=== PATIENT | male | born 1960 | race Caucasian/White ===

== ENCOUNTER 2023-10-17 16:53 | Emergency (ER) | payer OTHER, SELFPAY ==
[2023-10-17 17:00] VITALS: BP 156/110
[2023-10-17 17:06] LABS: Glucose - Point of Care 84 mg/dl (70-99)
[2023-10-17 17:20] LABS: % Immature Granulocytes 0.3 % (0-0.5); % Lymphocytes 36.9 % (20.5-51.1); % Monocytes 6.8 % (1.7-9.3); Absolute Basophils 0.1 10^3/uL (0-0.2); Absolute Eosinophils 0.1 10^3/uL (0-0.7); Absolute Lymphocytes 2.3 10^3/uL (1.2-3.4); Absolute Monocytes 0.4 10^3/uL (0.1-0.6); Absolute Neutrophils 3.4 10^3/uL (1.4-6.5); Hematocrit 40.4 % (39.0-52.0); Hemoglobin 14.3 g/dL (13.0-18.0); Mean Corp Hgb Conc. 35.4 g/dL (33.0-37.0); Mean Corpuscular Hgb 31.8 pg (27.0-31.0); Mean Corpuscular Volume 89.8 fL (80.0-94.0); Mean Platelet Volume 9.1 fL (7.4-10.4); Nucleated Red Blood Cells % 0 % (-); Platelet Count 232 10^3/uL (130-400); Red Cell Dist. Width 13.8 % (11.5-14.5); White Blood Cell Count 6.3 10^3/uL (4.8-10.8)
--- NOTE | 2023-10-17 17:21 | ED.GENMED ---
History of Present Illness
<EULALIA Amaya - Last Filed: 10/17/23 18:51>
General
Chief Complaint: Cough
Source: patient
Exam Limitations: other (intoxicated appearing)
Time Seen by Provider: 10/17/23 17:01
Nursing documentation reviewed up to this point in time: agreed with
Travel History
Have you had any contact with someone who has COVID-19?: No
Do you have any symptoms of coronavirus? Fever > 100 degrees, chills, cough, shortness of breath, sore throat, loss of taste or smell, muscle aches, or headache?: No
History of Present Illness
History of Present Illness:
62 y/o M presents to ED complaining of generalized weakness x 5 days. Patient called EMS today because he felt so weak he could not stand up. Patient does have history of ETOH abuse and reports he was drinking a lot tonight. He cannot recall how
much he drank. Patient appears intoxicated in exam room. Patient reports he had 2 teeth pulled about 1 week ago and has been feeling off since. He reports feeling warm to touch and having consistent dental pain. Patient was prescribed oxycodone and
Tylenol 650mg but reports he is still having pain. He is requesting pain medications. Patient has been out of work all week. Requesting note for work. Patient reports his BP has been elevated and BS has been low. BS was 84. Patient reports he has
been eating malay food all week. Patient also reports sore throat x 5 days. He reports a wet cough but states this has been occurring for past year because of his smoking. Denies headache, blurry vision, numbness/tingling, congestion, chest pain,
palpitations, NVD or abdominal pain.
If applicable-neuro sx onset
Onset of symptoms known: No
Time pt last seen normal is known: No
Past History
<EULALIA Amaya - Last Filed: 10/17/23 18:51>
Past History
ED Past Medical History: HTN, IDDM, Psychiatric and Other (Pancreatitis, alcoholism)
ED Past Surgical History: None
Social History
Tobacco: Smoker
Alcohol: Chronic alcoholic
Drug: None
Personal: Partner
Living: with family
Review of Systems
<EULALIA Amaya - Last Filed: 10/17/23 18:51>
Review of Systems
Allergies reviewed?: Yes
All Other Systems: ROS reviewed and negative except as documented in HPI and ROS
Constitutional: Reports no symptoms
EENT: Reports sore throat
Respiratory: Reports cough
Cardiac: Reports no symptoms
ABD/GI: Reports no symptoms
: Reports no symptoms
Musculoskeletal: Reports no symptoms
Skin: Reports no symptoms
Neurological: Reports weakness
Endocrine: Reports no symptoms
Hematologic/Lymphatic: Reports no symptoms
Psychiatric: Reports no symptoms
Phy Exam
<EULALIA Amaya - Last Filed: 10/17/23 18:51>
General Physical Exam
General Presentation: well appearing
General age: appears stated age
General Skin: warm and dry
General Habitus: normal
General Mental: alert
General Hydration: appears well hydrated
ENT Exam
ENT Exam: EOMI, TM's normal, neck supple, pharyngeal erythema and other (no signs of infection at site of tooth removal)
Eye Exam
Eye Exam: PERRL, EOMI and conjunctiva normal
Cardiovascular Exam
Cardiovascular Exam: regular rate/rhythm, no edema, no gallop, no murmur and normal peripheral pulses
Pulmonary Exam
Pulmonary Exam: no respiratory distress and other (slight wheeze in lower lobes )
Cough: productive cough
Breath Sounds: Wheeze: left lower and right lower
Gastrointestinal Exam
Gastrointestinal Exam: normal bowel sounds, non tender, soft and non distended
Neurological Exam
Neurological Exam: alert, oriented x3 and CN II-XII intact
Musculoskeletal Exam
Musculoskeletal Exam: full ROM and other (full strength of all extremities )
Skin Exam
Skin Exam: normal color, warm/dry and no rash
Psychiatric Exam
Psychiatric Exam: normal mood/affect
Course
<Chapis Rabago [facility] - Last Filed: 10/17/23 18:51>
Orders/Labs/Results
Orders:
Orders
10/17/23 17:10
Alcohol Urgent
COVID-19 Antigen Urgent
Source: Nasal Swab
Complete Blood Count/With Diff Urgent
Comprehensive Metabolic Panel Urgent
Lipase Urgent
Comment: ADD ON
Influenza A+B Rapid Molecular Urgent
TEJAL Source: Nasal Swab
Specimen Description:
10/17/23 17:53
Acetaminophen [Tylenol] 1,000 mg PO NOW STA
10/17/23 18:59
Nicotine [Nicoderm Transdermal] 21 mg TRANSDERM NOW STA
10/17/23 20:42
Ibuprofen [Motrin] 800 mg PO NOW STA
10/17/23 21:08
Insulin Glargine Lantus [Lantus] 10 units Subcutaneous Insulin Syringe [Syringe-Insulin] 0 unit SC ONCE
10/17/23 21:24
Insulin Glargine Lantus [Lantus] 30 units Subcutaneous Insulin Syringe [Syringe-Insulin] 0 unit SC NOW
10/17/23 22:55
Add On- LAB Urgent
Tests Added?: lipase
10/18/23 00:08
Lorazepam [Ativan] 1 mg PO NOW STA
10/18/23 01:23
Acetaminophen [Tylenol] 1,000 mg PO NOW STA
Abnormal Lab Results
10/17/23 10/17/23 10/17/23
17:10 19:57 21:06
RBC 4.50 L 10^6/uL
(4.70-6.10)
MCH 31.8 H pg
(27.0-31.0)
Chloride 108 H mmol/L
(98-107)
Creatinine 0.6 L mg/dL
(0.7-1.3)
POC Glucose 215 H mg/dl 316 H mg/dl
(70-99) (70-99)
10/17/23
22:28
RBC
MCH
Chloride
Creatinine
POC Glucose 252 H mg/dl
(70-99)
10/17/23 17:10
10/17/23 17:10
Vital Signs
Initial and Last Documented VS:
Initial Vital Signs
Temp Pulse Resp BP Pulse Ox
97.5 F 80 18 156/110 98
10/17/23 17:00 10/17/23 17:00 10/17/23 17:00 10/17/23 17:00 10/17/23 17:00
Last Documented Vital Signs
Temp Pulse Resp BP Pulse Ox
98.6 F 110 24 168/108 96
10/17/23 20:58 10/18/23 06:10 10/18/23 06:10 10/18/23 06:10 10/18/23 06:10
<Dean Perry, DO - Last Filed: 10/19/23 22:04>
Orders/Labs/Results
Orders:
Orders
10/17/23 17:10
Alcohol Urgent
COVID-19 Antigen Urgent
Source: Nasal Swab
Complete Blood Count/With Diff Urgent
Comprehensive Metabolic Panel Urgent
Lipase Urgent
Comment: ADD ON
Influenza A+B Rapid Molecular Urgent
TEJAL Source: Nasal Swab
Specimen Description:
10/17/23 17:53
Acetaminophen [Tylenol] 1,000 mg PO NOW STA
10/17/23 18:59
Nicotine [Nicoderm Transdermal] 21 mg TRANSDERM NOW STA
10/17/23 20:42
Ibuprofen [Motrin] 800 mg PO NOW STA
10/17/23 21:08
Insulin Glargine Lantus [Lantus] 10 units Subcutaneous Insulin Syringe [Syringe-Insulin] 0 unit SC ONCE
10/17/23 21:24
Insulin Glargine Lantus [Lantus] 30 units Subcutaneous Insulin Syringe [Syringe-Insulin] 0 unit SC NOW
10/17/23 22:55
Add On- LAB Urgent
Tests Added?: lipase
10/18/23 00:08
Lorazepam [Ativan] 1 mg PO NOW STA
10/18/23 01:23
Acetaminophen [Tylenol] 1,000 mg PO NOW STA
Abnormal Lab Results
10/17/23 10/17/23 10/17/23
17:10 19:57 21:06
RBC 4.50 L 10^6/uL
(4.70-6.10)
MCH 31.8 H pg
(27.0-31.0)
Chloride 108 H mmol/L
(98-107)
Creatinine 0.6 L mg/dL
(0.7-1.3)
POC Glucose 215 H mg/dl 316 H mg/dl
(70-99) (70-99)
10/17/23
22:28
RBC
MCH
Chloride
Creatinine
POC Glucose 252 H mg/dl
(70-99)
10/17/23 17:10
10/17/23 17:10
Vital Signs
Initial and Last Documented VS:
Initial Vital Signs
Temp Pulse Resp BP Pulse Ox
97.5 F 80 18 156/110 98
10/17/23 17:00 10/17/23 17:00 10/17/23 17:00 10/17/23 17:00 10/17/23 17:00
Last Documented Vital Signs
Temp Pulse Resp BP Pulse Ox
98.6 F 110 24 168/108 96
10/17/23 20:58 10/18/23 06:10 10/18/23 06:10 10/18/23 06:10 10/18/23 06:10
<EULALIA Amaya - Last Filed: 10/17/23 18:51>
MDM/Problems Addressed
Differential Diagnosis Includes:
ETOH intoxication
Dental Infection (no signs of infection on exam)
COPD (chronic cough)
Hypoglycemic
MDM/Problems Addressed:
Patient is 62 y/o M with history of ETOH abuse who reporst feeling unwell since his tooth removal. Patient reports he has been drinking a lot and has been feeling very weak. Patient weakness may be secondary to hypoglycemia or ETOH intoxication. No
concerns for stroke or CN concerns. Patient cough likely secondary to smoking history. No fever today.
Chronic conditions affecting care:
ETOH abuse
<Dean Perry DO - Last Filed: 10/19/23 22:04>
*Critical Care Note
Total Time (30-74mins, 75-104mins- exclusive of procedures): Not Applicable
<EULALIA Amaya - Last Filed: 10/17/23 18:51>
Update Note
Update Note:
1850: Patient verbally abusive toward nurse. States he is not feeling well and is not ready to go home. States he will fall and hit his head if he has to as he is not ready to go home. Laying in bed currently.
ED Attending Note
<EULALIA Amaya - Last Filed: 10/17/23 18:51>
-
Portions of this chart may have been created with voice recognition software.� Occasional wrong word or��sound alike� substitutions may have occurred due to the inherent limitations of voice recognition software.
<Dean Perry, DO - Last Filed: 10/19/23 22:04>
ED Attending Note
Patient seen and examined by attending physician: Yes
I performed the substantive portion of visit, reviewed & personally made and approve the management plan that is documented in note by myself or NAA.: Yes
ED Attending Note:
62-year-old male presents with generalized weakness that has been present for the last 3 to 5 days. Patient reports that he had 2 teeth removed. He states that he has been drinking alcohol daily. He does have a history of high blood pressure and
alcohol abuse. Patient is also diabetic and requires insulin. He reports that his blood sugar has been running low. Denies chest pain or shortness of breath. Denies fever, chills, nausea or vomiting. Patient was seen in conjunction with the PA
student. I have reviewed and agree with the history and treatment plan presented. On my independent physical exam, patient is awake, alert, and oriented x3, verbally abusive towards staff. Unwilling to cooperate by staying in his bed. Multiple
times he was asked to get back in his bed. Heart is regular rate rhythm. Lungs are clear to auscultation bilaterally. Abdomen is soft and nontender.
10/17/2023 1805 PM: IV was removed because patient keeps wandering around the halls.
10/17/2023 2041 PM: Patient states that he does not feel safe going home but he continues to walk around the department. I advised him to stay in the bed and he is being noncompliant with this. I am concerned for his safety. He is still
complaining of dental pain and wants narcotic pain medication. I explained to him it has been a week and I can offer him nonnarcotic alternatives. He was willing to try Motrin.
10/17/2023 2132 PM: Patient getting 30 of Lantus which is approximately 20% less than his normal dose of Toujeo.
Pt spoke with LORETO who stated that placement in an inpatient facility would be difficult, as patient has been to many facilities and did not comply with rules.
Discharge Plan
Departure
Patient Disposition: Home (Routine Discharge)
Date of Disposition: 10/17/23
Time of Disposition: 22:56
Patient with high blood pressure during this ER visit?: Yes
Condition: Fair
Discharge Problem:
Smoker, Type 2 diabetes mellitus without complications, Alcohol abuse
Instructions: Alcohol Use Disorder (DC), Drug and Alcohol Abuse Information
Prescriptions:
No Action
Toujeo SoloStar U-300 Insulin 300 UNIT/ML insulin pen
40 unit SC DAILY
Rx Instructions:
pt adjusts per bs
insulin aspart U-100 100 UNIT/ML insulin pen
0 unit SQ .SLIDING SCALE MEALS
tamsulosin 0.4 MG capsule
0.4 mg PO DAILYPRN PRN (Reason: urinary symptoms)
ibuprofen 400 MG tablet
400 mg PO TIDPRN PRN (Reason: mild pain)
atorvastatin
1 tab PO DAILY
Rx Instructions:
LAST FILLED 02/13/22 FOR LISINOPRIL 5 MG #30
lisinopril
1 tab PO DAILY
Rx Instructions:
LAST FILLED 02/13/22 FOR LISINOPRIL 5 MG #30
acetaminophen 325 mg Capsule
650 mg PO Q4H PRN (Reason: pain)
Patient Comments:
pt taking large quantities this week 05/29/2022
Referrals:
Jay Arthur MD [Non-Admitting Privileges] - Call in 1-3 days for appt
UNKNOWN - PT NOT,INTERVIEWE [Family Provider] -
Stand Alone Forms: Return to Work
Interventions
Interventions:
*Risk Screen - Suicide Last Done: 10/17/23 17:00
*General Assessment Last Done: 10/17/23 17:00
*Neglect/Abuse Screening Last Done: 10/17/23 17:00
ED- Fall Risk Assessment Last Done: 10/18/23 01:32
*ED COVID-19 Vaccine History Last Done: 10/18/23 01:32
*Nursing Disposition Last Done: 10/18/23 07:19
ED- Pulmonary Assessment Last Done: 10/17/23 17:25
Discharge Date and Time
Discharge Date/Time: 10/18/23 07:03
[2023-10-17 17:48] LABS: ALT (SGPT) 25 U/L (0-50); AST (SGOT) 49 U/L (17-59); Albumin 4.3 g/dl (3.5-5.0); Alkaline Phosphatase 95 U/L (38-126); Blood Urea Nitrogen 9 mg/dl (9-20); Calcium 8.9 mg/dl (8.4-10.2); Carbon Dioxide 24 mmol/L (22-30); Chloride 108 mmol/L (98-107); Glucose 83 mg/dl (70-99); Potassium 4.5 mmol/L (3.5-5.1); Sodium 142 mmol/L (135-145); Total Bilirubin 0.9 mg/dl (0.2-1.3); Total Protein 7.4 g/dl (6.3-8.2); eGFR > 60.00
[2023-10-17 17:53] LABS: COVID-19 Antigen Negative (Negative)
[2023-10-17] MEDS: TYLENOL 1000 MG PO (17:56)
[2023-10-17 18:29] LABS: Alcohol 338 mg/dl
[2023-10-17] MEDS: NICODERM TRANSDERMAL 21 MG TRANSDERM (19:03)
[2023-10-17 20:00] LABS: Glucose - Point of Care 215 mg/dl (70-99)
[2023-10-17] MEDS: MOTRIN 800 MG PO (20:45)
[2023-10-17 20:58] VITALS: BP 128/102
[2023-10-17 21:08] LABS: Glucose - Point of Care 316 mg/dl (70-99)
[2023-10-17] MEDS: LANTUS 0.299999999999999989 UNITS SC (21:45)
[2023-10-17 22:29] LABS: Glucose - Point of Care 252 mg/dl (70-99)
[2023-10-17 23:02] VITALS: BP 188/89
[2023-10-17 23:31] LABS: Lipase 29 U/L (23-300)
[2023-10-18 00:20] VITALS: BP 205/97
[2023-10-18 00:21] VITALS: BP 205/97
[2023-10-18] MEDS: ATIVAN 1 MG PO (00:21)
[2023-10-18 01:18] LABS: Glucose - Point of Care 93 mg/dl (70-99)
[2023-10-18] MEDS: TYLENOL 1000 MG PO (01:26)
[2023-10-18 06:07] VITALS: BP 165/108
[2023-10-18 06:10] VITALS: BP 168/108
== END 2023-10-18 07:03 | disposition home or self-care (01) ==
LOC: EMR 16:53
PROVIDERS: EMERGENCY PHYSICIAN Student in an Organized Health Care Education/Training Program
DX: R53.1 Weakness (principal); F10.229 Alcohol dependence with intoxication, unspecified; E11.9 Type 2 diabetes mellitus without complications; K08.89 Other specified disorders of teeth and supporting structures; F17.200 Nicotine dependence, unspecified, uncomplicated; Z11.52 Encounter for screening for COVID-19; J02.9 Acute pharyngitis, unspecified; R05.9 Cough, unspecified; I10 Essential (primary) hypertension; Z85.46 Personal history of malignant neoplasm of prostate; Z98.890 Other specified postprocedural states
CPT/HCPCS: 99284; 96372; 80053; 82077; 82962; 83690; 85025; 87502; 87811

== ENCOUNTER 2023-10-18 15:11 | Emergency (ER) | payer OTHER, SELFPAY ==
[2023-10-18 15:16] VITALS: BP 195/99
[2023-10-18 16:16] VITALS: BP 162/92
[2023-10-18 16:18] VITALS: BMI 25.2
--- NOTE | 2023-10-18 17:20 | ED.GENMED ---
History of Present Illness
General
Chief Complaint: Alcohol Problem
Source: patient
Exam Limitations: none
Time Seen by Provider: 10/18/23 17:02
Nursing documentation reviewed up to this point in time: agreed with
Travel History
Have you had any contact with someone who has COVID-19?: No
Do you have any symptoms of coronavirus? Fever > 100 degrees, chills, cough, shortness of breath, sore throat, loss of taste or smell, muscle aches, or headache?: No
History of Present Illness
History of Present Illness:
Patient to ED asking for medical clearance for inpatient rehab, alcohol abuse. States he spoke with [facility] today (Kendra) and was advised to come to ED, request [facility] and an assessment. [facility] called by RN and they are reaching out to
[facility]. Last drink was last PM prior to coming to ED. In ED last PM, intoxicated, complaining of feeling weak.
Past History
Past History
ED Past Medical History: HTN, IDDM, Psychiatric and Other (Pancreatitis, alcoholism)
ED Past Surgical History: None
Social History
Tobacco: Smoker
Alcohol: Chronic alcoholic
Drug: None
Personal: Partner
Living: with family
Review of Systems
Review of Systems
Allergies reviewed?: Yes
All Other Systems: ROS reviewed and negative except as documented in HPI and ROS
Phy Exam
General Physical Exam
General Presentation: well appearing and no apparent distress
General age: appears stated age
General Skin: warm and dry
General Habitus: normal
General Mental: alert
General Hydration: appears well hydrated
Cardiovascular Exam
Cardiovascular Exam: regular rate/rhythm and no edema
Pulmonary Exam
Pulmonary Exam: lungs clear and no respiratory distress
Gastrointestinal Exam
Gastrointestinal Exam: normal bowel sounds, non tender and soft
Neurological Exam
Neurological Exam: alert, oriented x3, CN II-XII intact, no motor deficits, no sensory deficits, speech normal and normal gait
Musculoskeletal Exam
Musculoskeletal Exam: full ROM and neuro vasc intact
Skin Exam
Skin Exam: normal color, warm/dry and no rash
Psychiatric Exam
Psychiatric Exam: normal mood/affect
Scores
Withdrawal Assessment of Alcohol
Withdrawal Assessment Completed?: Yes
Nausea and Vomiting: No nausea and no vomiting
Tactile Disturbances: None
Tremor: No tremor
Auditory Disturbances: Not present
Paroxysmal Sweats: No sweat visible
Visual Disturbances: Not present
Anxiety: No anxiety, at ease
Headache, Fullness in Head: Not present
Agitation: Normal activity
Orientation and clouding of sensorium: Oriented and can do serial additions
Total CIWA Score: 0
Alcohol Withdrawal Medication Recommendation: Equal to MSAS Score 0-4. Monitor & re-assess q2hrs, NO MEDICATION NEEDED
Course
Orders/Labs/Results
Orders:
Orders
10/18/23 17:45
Alcohol Urgent
Complete Blood Count/With Diff Urgent
Comprehensive Metabolic Panel Urgent
10/18/23 18:26
0.9% Sodium Chloride 500 ml [Nss] 500 ml IV BOLUS
Potassium Chloride [KCl] 40 meq PO NOW STA
10/18/23 18:52
Fentanyl, Urine Urgent
Urine Drug Abuse Screen Urgent
Date Specimen was Collected: 10/18/23
Time Specimen was Collected: 18:35
10/18/23 20:23
Ibuprofen [Motrin] 600 mg .ROUTE .STK-MED ONE
10/18/23 20:27
Ibuprofen [Motrin] 600 mg PO NOW STA
10/18/23 20:34
Nicotine [Nicoderm Transdermal] 21 mg TRANSDERM NOW STA
10/18/23 21:44
BMP [Basic Metabolic Panel] Urgent
Abnormal Lab Results
10/18/23 10/18/23 10/18/23
17:45 18:52 21:44
Absolute Neuts (auto) 6.9 H 10^3/uL
(1.4-6.5)
Absolute Monos (auto) 0.7 H 10^3/uL
(0.1-0.6)
Lymphocytes % 17.6 L %
(20.5-51.1)
Sodium 133 L D mmol/L 131 L mmol/L
(135-145) (135-145)
Potassium 2.9 L D mmol/L
(3.5-5.1)
Chloride 93 L mmol/L
(98-107)
BUN 8 L mg/dl
(9-20)
Creatinine 0.6 L mg/dL
(0.7-1.3)
Glucose 34 L* mg/dl 192 H mg/dl
(70-99) (70-99)
Calcium 10.3 H D mg/dl
(8.4-10.2)
AST 65 H U/L
(17-59)
Total Protein 8.4 H g/dl
(6.3-8.2)
U Benzodiazepines Scrn Positive H
(Negative)
10/18/23 17:45
10/18/23 21:44
Vital Signs
Initial and Last Documented VS:
Initial Vital Signs
Temp Pulse Resp BP Pulse Ox
98.3 F 99 18 195/99 98
10/18/23 15:16 10/18/23 15:16 10/18/23 15:16 10/18/23 15:16 10/18/23 15:16
Last Documented Vital Signs
Temp Pulse Resp BP Pulse Ox
97.8 F 90 19 158/79 98
10/18/23 22:00 10/18/23 22:00 10/18/23 22:00 10/18/23 22:00 10/18/23 22:00
*Critical Care Note
Total Time (30-74mins, 75-104mins- exclusive of procedures): Not Applicable
Update Note
Update Note:
Glucose 36 on CMP. Patient without s/s hypoglycemia. Bedside glucose 76. Given meal in ED. Potassium 2.7. Given 40meq KCL po. 1L NSS infused and labs rechecked at 4 hour giancarlo. Chemistries are now jose. He is discharged from the ED. Has
been accepted at [facility] and was advised by them to go to facility after discharge from ED. He now states he does not want to go and will go home instead.
ED Attending Note
-
Portions of this chart may have been created with voice recognition software.� Occasional wrong word or��sound alike� substitutions may have occurred due to the inherent limitations of voice recognition software.
Discharge Plan
Departure
Patient Disposition: Home (Routine Discharge)
Date of Disposition: 10/18/23
Time of Disposition: 22:19
Patient with high blood pressure during this ER visit?: No
Condition: Good
Covid-19: Not Applicable
Discharge Problem:
MEDICAL CLEARANCE
Instructions: Alcohol Use Disorder (DC)
Prescriptions:
No Action
Toujeo SoloStar U-300 Insulin 300 UNIT/ML insulin pen
40 unit SC DAILY
Rx Instructions:
pt adjusts per bs
insulin aspart U-100 100 UNIT/ML insulin pen
0 unit SQ .SLIDING SCALE MEALS
tamsulosin 0.4 MG capsule
0.4 mg PO DAILYPRN PRN (Reason: urinary symptoms)
ibuprofen 400 MG tablet
400 mg PO TIDPRN PRN (Reason: mild pain)
atorvastatin
1 tab PO DAILY
Rx Instructions:
LAST FILLED 02/13/22 FOR LISINOPRIL 5 MG #30
lisinopril
1 tab PO DAILY
Rx Instructions:
LAST FILLED 02/13/22 FOR LISINOPRIL 5 MG #30
acetaminophen 325 mg Capsule
650 mg PO Q4H PRN (Reason: pain)
Patient Comments:
pt taking large quantities this week 05/29/2022
Referrals:
PRIVATE,PHYSICIAN [Family Provider] -
Interventions
Interventions:
*Risk Screen - Suicide Last Done: 10/18/23 15:16
*General Assessment Last Done: 10/18/23 15:16
*Neglect/Abuse Screening Last Done: 10/18/23 16:17
ED- Fall Risk Assessment Last Done: 10/18/23 16:17
*ED COVID-19 Vaccine History Last Done: 10/18/23 16:16
*Nursing Disposition Last Done: 10/18/23 22:34
ED- Neurological Assessment Last Done: 10/18/23 15:55
ED-Psychological Assessment Last Done: 10/18/23 15:55
Discharge Date and Time
Discharge Date/Time: 10/18/23 22:35
--- NOTE | 2023-10-18 17:27 | EDRN ---
This RN called Yanick Lilly at 17:35 and received a call back at 16:50. Yanick fenton stated that pt did have a Yanick Lilly assessment when here overnight during his visit. Yanick fenton said he will call [facility] and get back to me on what is needed.
This RN informed Blaze Bates NP of the conversations and updated pt as well on status of his request.
--- NOTE | 2023-10-18 17:50 | EDRN ---
Bloods drawn and sent to lab. Pt eating boxed lunch at this time after okayed by Blaze Bates NP in [place]. Post conversation w/ Luis E in [facility], pt said Luis E is attempting to get pt to [facility] [place] at this time.
[2023-10-18 18:01] LABS: % Basophils 0.5 % (0-2); % Eosinophils 0.3 % (0-6); % Immature Granulocytes 0.3 % (0-0.5); % Lymphocytes 17.6 % (20.5-51.1); % Monocytes 7.7 % (1.7-9.3); % Neutrophils 73.6 % (42.2-75.2); Absolute Basophils 0.1 10^3/uL (0-0.2); Absolute Lymphocytes 1.7 10^3/uL (1.2-3.4); Absolute Monocytes 0.7 10^3/uL (0.1-0.6); Absolute Neutrophils 6.9 10^3/uL (1.4-6.5); Hematocrit 40.9 % (39.0-52.0); Hemoglobin 14.6 g/dL (13.0-18.0); Mean Corp Hgb Conc. 35.7 g/dL (33.0-37.0); Mean Corpuscular Volume 86.8 fL (80.0-94.0); Mean Platelet Volume 9.1 fL (7.4-10.4); Nucleated Red Blood Cells % 0 % (-); Platelet Count 233 10^3/uL (130-400); Red Blood Cell Count 4.71 10^6/uL (4.70-6.10); Red Cell Dist. Width 13.7 % (11.5-14.5); White Blood Cell Count 9.4 10^3/uL (4.8-10.8)
[2023-10-18 18:16] LABS: ALT (SGPT) 30 U/L (0-50); AST (SGOT) 65 U/L (17-59); Albumin 4.7 g/dl (3.5-5.0); Alcohol 43 mg/dl; Alkaline Phosphatase 105 U/L (38-126); Blood Urea Nitrogen 8 mg/dl (9-20); Calcium 10.3 mg/dl (8.4-10.2); Carbon Dioxide 27 mmol/L (22-30); Chloride 93 mmol/L (98-107); Estimated Creatinine Clearance > 125 ml/min; Glucose 34 mg/dl (70-99); Potassium 2.9 mmol/L (3.5-5.1); Sodium 133 mmol/L (135-145); Total Bilirubin 1.2 mg/dl (0.2-1.3); Total Protein 8.4 g/dl (6.3-8.2); eGFR > 60.00
[2023-10-18 18:23] LABS: Glucose - Point of Care 73 mg/dl (70-99)
--- NOTE | 2023-10-18 18:24 | EDRN ---
Pt's lab glucose was 34. Pt just ate a full boxed lunch and accucheck just now came back at 73. Pt voided and will send urine test at this time. Pt also had low potassium of 2.9, awaiting orders on potassium at this time.
[2023-10-18 18:30] VITALS: BP 185/112
[2023-10-18] MEDS: KCL 40 MEQ PO (18:47)
[2023-10-18] MEDS: NSS 500 IV (18:48)
[2023-10-18 19:00] VITALS: BP 171/87
[2023-10-18 19:16] LABS: Amphetamines Negative (Negative); Barbiturates Negative (Negative); Benzodiazepines Positive (Negative); Buprenorphine Negative (Negative); Cocaine Negative (Negative); Marijuana Negative (Negative); Methadone Negative (Negative); Methamphetamines Negative (Negative); Opiates Negative (Negative); Phencyclidine Negative (Negative); Tricyclic Antidepressants Negative (Negative)
--- NOTE | 2023-10-18 19:19 | EDRN ---
At 18:20 pt's glucose was resulted as 73 and potassium was resulted as 2.9. Blaze Bates ULTRASONOGRAPHER ordered potassium PO, NSS 500 mL IV bolus and an accucheck at that time as she also saw his labs. Pt was in shaking chills and cold when I went into room at
18:30 and unable to get a temp and BP very high due to his shaking. I covered pt in warm blankets at 18:33 and attempted IV access which was started at 18:40 w/ IV fluids and potassium administered at 18:50. Pt no longer in chills and Temp was able
to be taken and was 97.8. Pt was administered two more blankets and BP was better and pt was placed on color television console monitor in protocol bed for low potassium at 19:00.
--- NOTE | 2023-10-18 19:29 | EDRN ---
This RN called Clifton from [facility] as pt was arranged to go to [facility] but now pt will be here for 3 more hours. Clifton informed me that pt has to get there prior to 23:00. I asked pt if he had a place to go if he cannot go there tonight
and he said he can go home and go in AM.
[2023-10-18 19:35] LABS: Fentanyl, Urine Negative (Negative)
--- NOTE | 2023-10-18 19:44 | EDRN ---
Pt found in room with all his cardiac leads off, fully dressed, and IV disconnected at this time. Pt states he wants to go out to his car to get his cell phone. Pt advised not to go. Dolores LOVE whom I reported off to is attempting to get pt a
monitored bed.
[2023-10-18] MEDS: MOTRIN 600 MG PO (20:28)
[2023-10-18] MEDS: NICODERM TRANSDERMAL 21 MG TRANSDERM (20:54)
[2023-10-18 21:00] VITALS: BP 169/97
[2023-10-18 22:00] VITALS: BP 158/79
[2023-10-18 22:06] LABS: Blood Urea Nitrogen 9 mg/dl (9-20); Calcium 9.3 mg/dl (8.4-10.2); Carbon Dioxide 27 mmol/L (22-30); Chloride 98 mmol/L (98-107); Estimated Creatinine Clearance 101 ml/min; Glucose 192 mg/dl (70-99); Potassium 4.3 mmol/L (3.5-5.1); Sodium 131 mmol/L (135-145); eGFR > 60.00
== END 2023-10-18 22:35 | disposition home or self-care (01) ==
LOC: EMR 15:11
PROVIDERS: Nurse Practitioner; EMERGENCY PHYSICIAN Emergency Medicine
DX: E16.2 Hypoglycemia, unspecified (principal); F10.20 Alcohol dependence, uncomplicated; Y90.2 Blood alcohol level of 40-59 mg/100 ml; F17.200 Nicotine dependence, unspecified, uncomplicated
CPT/HCPCS: 99284; 96360; 80048; 80053; 80306; 80307; 82077; 82962; 85025

== ENCOUNTER 2023-11-27 16:56 | Emergency (ER) | payer OTHER, SELFPAY ==
[2023-11-27 16:58] VITALS: BP 199/122
[2023-11-27 17:47] LABS: COVID-19 Antigen Negative (Negative)
[2023-11-27 18:36] LABS: % Basophils 0.8 % (0-2); % Eosinophils 0.1 % (0-6); % Immature Granulocytes 0.6 % (0-0.5); % Lymphocytes 19.9 % (20.5-51.1); % Monocytes 6.5 % (1.7-9.3); % Neutrophils 72.1 % (42.2-75.2); Absolute Basophils 0.1 10^3/uL (0-0.2); Absolute Immature Granulocytes 0.1 10^3/uL (0-0.05); Absolute Lymphocytes 1.6 10^3/uL (1.2-3.4); Absolute Monocytes 0.5 10^3/uL (0.1-0.6); Absolute Neutrophils 5.8 10^3/uL (1.4-6.5); Hemoglobin 16.1 g/dL (13.0-18.0); Mean Corp Hgb Conc. 36.6 g/dL (33.0-37.0); Mean Corpuscular Hgb 31.8 pg (27.0-31.0); Nucleated Red Blood Cells % 0 % (-); Platelet Count 234 10^3/uL (130-400); Red Blood Cell Count 5.06 10^6/uL (4.70-6.10); Red Cell Dist. Width 13.9 % (11.5-14.5)
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
[2023-11-27] MEDS: NSS 1000 IV (18:58)
[2023-11-27 19:00] VITALS: BP 179/95
[2023-11-27 19:18] LABS: ALT (SGPT) 22 U/L (0-50); AST (SGOT) 37 U/L (17-59); Alcohol 240 mg/dl; Alkaline Phosphatase 96 U/L (38-126); Blood Urea Nitrogen 15 mg/dl (9-20); Calcium 9.3 mg/dl (8.4-10.2); Carbon Dioxide 21 mmol/L (22-30); Chloride 98 mmol/L (98-107); Glucose 73 mg/dl (70-99); Potassium 4.9 mmol/L (3.5-5.1); Sodium 131 mmol/L (135-145); Total Bilirubin 0.7 mg/dl (0.2-1.3); Total Protein 8.1 g/dl (6.3-8.2); eGFR > 60.00
[2023-11-27] MEDS: ZOFRAN 4 MG IV (19:25)
[2023-11-27] MEDS: PROTONIX IV 40 MG IV (19:25)
[2023-11-27] MEDS: TORADOL 30 MG IV (20:14)
[2023-11-27] MEDS: BENADRYL 25 MG IV (20:14)
[2023-11-27 20:16] LABS: Lipase 24 U/L (23-300)
[2023-11-27 22:24] VITALS: BP 179/88
[2023-11-27] MEDS: NICODERM TRANSDERMAL 21 MG TRANSDERM (23:57)
[2023-11-28 01:55] VITALS: BP 190/119
[2023-11-28] MEDS: TYLENOL 1000 MG PO (02:01)
[2023-11-28] MEDS: ZESTRIL 20 MG PO (02:03)
[2023-11-28 02:09] LABS: Glucose - Point of Care 96 mg/dl (70-99)
[2023-11-28 03:28] VITALS: BP 179/93
[2023-11-28 04:00] VITALS: BP 161/84
== END 2023-11-28 04:22 | disposition home or self-care (01) ==
LOC: EMR 16:56
PROVIDERS: Emergency Medicine; EMERGENCY PHYSICIAN Emergency Medicine
DX: F10.229 Alcohol dependence with intoxication, unspecified (principal); R11.0 Nausea; R51.9 Headache, unspecified; R19.7 Diarrhea, unspecified; Z11.52 Encounter for screening for COVID-19; E11.9 Type 2 diabetes mellitus without complications; I10 Essential (primary) hypertension; F17.200 Nicotine dependence, unspecified, uncomplicated; Z79.4 Long term (current) use of insulin
CPT/HCPCS: 99284; 96374; 96375 ×4; 96361; 80053; 82077; 82962; 83690; 85025; 87811; 93005

== ENCOUNTER 2024-09-28 07:03 | Emergency (ER) | payer OTHER, SELFPAY ==
[2024-09-28 07:07] VITALS: BP 195/105
--- NOTE | 2024-09-28 07:19 | ED.GENMED ---
History of Present Illness
General
Chief Complaint: Bowel Problem
Source: patient
Exam Limitations: none
Time Seen by Provider: 09/28/24 07:11
History of Present Illness
History of Present Illness:
63-year-old male complaining of oily stools diarrhea stools at times. Intermittent in nature. Primary care had ordered labs which are normal. Patient concerned as to the etiology. No significant abdominal pain vomiting weight change fever chills
etc.
Past History
Past History
ED Past Medical History: HTN, IDDM, Psychiatric and Other (Pancreatitis, alcoholism, GI bleeding, )
ED Past Surgical History: None
Social History
Tobacco: Smoker
Alcohol: Chronic alcoholic (15 Beers daily)
Drug: None
Personal: Partner
Living: with family
Review of Systems
Review of Systems
All Other Systems: Not applicable
Constitutional: Denies fever, weight gain or weight loss
ABD/GI: Denies bloody stools or black stools
Phy Exam
Physical Exam
Physical Exam:
GENERAL: Alert and oriented in no apparent distress
EYE: Orbits normal.
NECK: Supple, no significant adenopathy.
ENT: Pharynx without erythema
CARDIAC: Regular rate and rhythm without any obvious murmurs.
LUNGS: Clear breath sounds,normal
ABDOMEN: Soft, without focal tenderness or distention
NEUROLOGICAL: Alert and oriented , grossly non-focal
SKIN: Warm and dry, no rash or lesion, no discoloration, skin intact.
MUSCULOSKELETAL: No edema,no deformity.Good color
PSYCH: Normal and appropriate interaction.
Course
Orders/Labs/Results
Orders:
Orders
09/28/24 07:18
CT Abd/Pel (IV only)-DH only Urgent
Comment:
Reason For Exam: Change in stool/vague intermittent abdominal disco
IV Insert/Care/Rem.- Treatment PRN
09/28/24 07:46
Complete Blood Count/With Diff Urgent
Comprehensive Metabolic Panel Urgent
Lipase Urgent
Abnormal Lab Results
09/28/24
07:46
RBC 4.64 L 10^6/uL
(4.70-6.10)
Absolute Monos (auto) 0.8 H 10^3/uL
(0.1-0.6)
Lymphocytes % 19.7 L %
(20.5-51.1)
Glucose 175 H mg/dl
(70-99)
Lipase 14 L U/L
(23-300)
09/28/24 07:46
09/28/24 07:46
Vital Signs
Initial and Last Documented VS:
Initial Vital Signs
Temp Pulse Resp BP Pulse Ox
98 F 93 16 195/105 100
09/28/24 07:07 09/28/24 07:07 09/28/24 07:07 09/28/24 07:07 09/28/24 07:07
Last Documented Vital Signs
Temp Pulse Resp BP Pulse Ox
98 F 80 19 175/95 97
09/28/24 07:07 09/28/24 10:00 09/28/24 10:00 09/28/24 08:00 09/28/24 10:00
MDM/Problems Addressed
Differential Diagnosis Includes:
Patient describing change in stool consistency. Benign exam. Unlikely to find definitive etiology in ED although will evaluate for any acute issues.
*Radiology
Radiology exam reviewed: radiology read reviewed (No acute findings. Chronic pancreatitis. Some inflammatory changes in the mid sigmoid colon)
*Pulse Oximetry
Patient hypoxic: no
*Critical Care Note
Total Time (30-74mins, 75-104mins- exclusive of procedures): Not Applicable
Data Reviewed
Review of Other/Old Records Reveals: Labs, Records, Radiology Studies, Testing and Discharge Summary
Update Note
Update Note:
Medically stable and nontoxic. 2 possible explanations for patient's stool issues would be his chronic pancreatitis with informatory changes in his colon. Neither 1 require acute management. GI follow-up. Discussed with patient.
ED Attending Note
-
Portions of this chart may have been created with voice recognition software.� Occasional wrong word or��sound alike� substitutions may have occurred due to the inherent limitations of voice recognition software.
Discharge Plan
Departure
Patient Disposition: Home (Routine Discharge)
Date of Disposition: 09/28/24
Time of Disposition: 10:34
Patient with high blood pressure during this ER visit?: Yes
Discharge Problem:
Ongoing stool changes, Mid sigmoid colitis
Instructions: BLOOD PRESSURE
Prescriptions:
No Action
Toujeo SoloStar U-300 Insulin 300 UNIT/ML insulin pen
40 unit SC DAILY
Rx Instructions:
pt adjusts per bs
insulin aspart U-100 100 UNIT/ML insulin pen
0 unit SQ .SLIDING SCALE MEALS
tamsulosin 0.4 MG capsule
0.4 mg PO DAILYPRN PRN (Reason: urinary symptoms)
ibuprofen 400 MG tablet
400 mg PO TIDPRN PRN (Reason: mild pain)
atorvastatin
1 tab PO DAILY
Rx Instructions:
LAST FILLED 02/13/22 FOR LISINOPRIL 5 MG #30
lisinopril
1 tab PO DAILY
Rx Instructions:
LAST FILLED 02/13/22 FOR LISINOPRIL 5 MG #30
acetaminophen 325 mg Capsule
650 mg PO Q4H PRN (Reason: pain)
Patient Comments:
pt taking large quantities this week 05/29/2022
Referrals:
Colin Dela Cruz MD [Active] - Next open appointment
Zandra Amador CRNP [Family Provider] -
Stand Alone Forms: Return to Work
Activity Restrictions/Additional Instructions:
You need follow-up with gastroenterology.
You can try the GI physician that could see you sooner. You could try our GI group.
Also follow-up closely with your primary physician
Return with any worsening stool issues abdominal pain fever vomiting or any other concerning symptoms
Interventions
Interventions:
*Risk Screen - Suicide Last Done: 09/28/24 07:07
*General Assessment Last Done: 09/28/24 07:42
*Neglect/Abuse Screening Last Done: 09/28/24 07:07
ED- Fall Risk Assessment Last Done: 09/28/24 07:42
*ED COVID-19 Vaccine History Last Done: 09/28/24 07:42
*Nursing Disposition Last Done: 09/28/24 10:51
UO-Xkdsnk-Pesicmbyuw Assessment Last Done: 09/28/24 07:42
Discharge Date and Time
Discharge Date/Time: 09/28/24 11:06
Print Language: FAROESE
[2024-09-28 07:38] VITALS: BMI 26.4
[2024-09-28 07:42] VITALS: BP 171/102
[2024-09-28 07:57] LABS: % Basophils 0.5 % (0-2); % Eosinophils 1.2 % (0-6); % Immature Granulocytes 0.5 % (0-0.5); % Lymphocytes 19.7 % (20.5-51.1); % Monocytes 9.3 % (1.7-9.3); % Neutrophils 68.8 % (42.2-75.2); Absolute Eosinophils 0.1 10^3/uL (0-0.7); Absolute Lymphocytes 1.6 10^3/uL (1.2-3.4); Absolute Monocytes 0.8 10^3/uL (0.1-0.6); Absolute Neutrophils 5.5 10^3/uL (1.4-6.5); Hematocrit 40.4 % (39.0-52.0); Hemoglobin 14.2 g/dL (13.0-18.0); Mean Corp Hgb Conc. 35.1 g/dL (33.0-37.0); Mean Corpuscular Hgb 30.6 pg (27.0-31.0); Mean Corpuscular Volume 87.1 fL (80.0-94.0); Mean Platelet Volume 9.1 fL (7.4-10.4); Nucleated Red Blood Cells % 0 % (-); Platelet Count 266 10^3/uL (130-400); Red Blood Cell Count 4.64 10^6/uL (4.70-6.10); Red Cell Dist. Width 13.3 % (11.5-14.5)
[2024-09-28 08:00] VITALS: BP 175/95
[2024-09-28 08:22] LABS: ALT (SGPT) 24 U/L (0-50); AST (SGOT) 27 U/L (17-59); Alkaline Phosphatase 103 U/L (38-126); Blood Urea Nitrogen 17 mg/dl (9-20); Carbon Dioxide 26 mmol/L (22-30); Chloride 103 mmol/L (98-107); Estimated Creatinine Clearance 77 ml/min; Glucose 175 mg/dl (70-99); Lipase 14 U/L (23-300); Potassium 3.9 mmol/L (3.5-5.1); Sodium 136 mmol/L (135-145); Total Bilirubin 0.7 mg/dl (0.2-1.3); Total Protein 6.9 g/dl (6.3-8.2); eGFR > 60.00
== END 2024-09-28 11:06 | disposition home or self-care (01) ==
LOC: EMR 07:03
PROVIDERS: EMERGENCY PHYSICIAN Emergency Medicine; FAMILY PHYSICIAN Nurse Practitioner Family
DX: K52.9 Noninfective gastroenteritis and colitis, unspecified (principal); K86.1 Other chronic pancreatitis; I10 Essential (primary) hypertension; E11.9 Type 2 diabetes mellitus without complications; F17.200 Nicotine dependence, unspecified, uncomplicated; Z79.4 Long term (current) use of insulin
CPT/HCPCS: 99284; 74177; 80053; 83690; 85025; Q9967

== ENCOUNTER 2024-12-04 09:33 | Emergency (ER) | payer OTHER, SELFPAY ==
[2024-12-04 09:44] VITALS: BP 162/93
--- NOTE | 2024-12-04 10:52 | ED.GENMED ---
History of Present Illness
General
Chief Complaint: Alcohol Problem
Source: patient
Exam Limitations: none
Time Seen by Provider: 12/04/24 10:23
Nursing documentation reviewed up to this point in time: agreed with
History of Present Illness
History of Present Illness:
64 yr old male presents to the ER for evaluation. Patient has a history of depression and alcohol use and tells me' I need help.' He tells me he has 'no will to live anymore.' When asked he tells me he is not suicidal he simply 'has no will
anymore.' He reports however' I never said I was suicidal.' Pt was very upset about his life circumstances and money issues.
he does have a history of alcohol use but tells me he does not drink necessarily every day. He started drinking last night last drink , slept and 'drank a little,' this morning. He has no interest in [facility] of alcohol cessation.
He lives alone. He is upset about ' not having money ,I am broke.'
Past History
Past History
ED Past Medical History: HTN, IDDM, Psychiatric and Other (Pancreatitis, alcoholism, GI bleeding, )
ED Past Surgical History: None
Social History
Tobacco: Smoker
Alcohol: Chronic alcoholic (15 Beers daily)
Drug: None
Personal: Partner
Living: with family
Review of Systems
Review of Systems
Allergies reviewed?: Yes
All Other Systems: ROS reviewed and negative except as documented in HPI and ROS
Constitutional: Reports no symptoms; Denies fever, fatigue or chills
EENT: Reports no symptoms
Respiratory: Reports no symptoms
Cardiac: Reports no symptoms
ABD/GI: Reports no symptoms
: Reports no symptoms
Musculoskeletal: Reports no symptoms
Skin: Reports no symptoms
Neurological: Reports no symptoms
Psychiatric: Reports depression
Phy Exam
General Physical Exam
General Presentation: no apparent distress
General age: appears stated age
General Skin: warm and dry
General Habitus: normal
General Mental: alert
General Hydration: appears well hydrated
Cardiovascular Exam
Cardiovascular Exam: regular rate/rhythm, no murmur and normal peripheral pulses
Pulmonary Exam
Pulmonary Exam: lungs clear and no respiratory distress
Neurological Exam
Neurological Exam: alert and oriented x3
Musculoskeletal Exam
Musculoskeletal Exam: full ROM
Skin Exam
Skin Exam: normal color and warm/dry
Psychiatric Exam
Psychiatric Exam: normal mood/affect
Scores
Withdrawal Assessment of Alcohol
Withdrawal Assessment Completed?: Not applicable
Course
Orders/Labs/Results
Orders:
Orders
12/04/24 10:51
Crisis Consult Urgent
Reason for Consult: alcohol abuse , depression
12/04/24 10:53
Urinalysis Reflex To Culture Urgent
Date Specimen was Collected: 12/04/24
Time Specimen was Collected: 11:06
Urine Drug Abuse Screen Urgent
Date Specimen was Collected: 12/04/24
Time Specimen was Collected: 11:06
12/04/24 10:54
IV Insert/Care/Rem.- Treatment PRN
0.9% Sodium Chloride 1000 ml [Nss] 1,000 ml IV BOLUS
12/04/24 11:07
Complete Blood Count/With Diff Urgent
Comprehensive Metabolic Panel Urgent
Abnormal Lab Results
12/04/24 12/04/24
11:07 12:11
RBC 4.68 L 10^6/uL
(4.70-6.10)
MCH 31.2 H pg
(27.0-31.0)
Absolute Monos (auto) 0.7 H 10^3/uL
(0.1-0.6)
Immature Gran % 0.6 H %
(0-0.5)
Monocytes % 11.0 H %
(1.7-9.3)
Glucose 176 H mg/dl
(70-99)
POC Glucose 159 H mg/dl
(70-99)
12/04/24 11:07
12/04/24 11:07
Vital Signs
Initial and Last Documented VS:
Initial Vital Signs
Temp Pulse Resp BP Pulse Ox
98.3 F 74 16 162/93 98
12/04/24 09:44 12/04/24 09:44 12/04/24 09:44 12/04/24 09:44 12/04/24 09:44
Last Documented Vital Signs
Temp Pulse Resp BP Pulse Ox
98.3 F 70 18 152/98 99
12/04/24 09:44 12/04/24 11:43 12/04/24 11:43 12/04/24 11:43 12/04/24 11:43
MDM/Problems Addressed
MDM/Problems Addressed:
Patient is a 64-year-old male that admits to drinking alcohol all throughout the night last night and prior to arrival. He reports he is very upset over his situation he initially stated he had no will to live however told me he was not suicidal.
He reports he is simply very upset over his living circumstances and lack of money. He reports a majority of his money goes to his rent. Patient had no interest in [facility]. He was eval by crisis and did not want any inpatient treatment for
alcohol abuse or depression.
He adamantly denied feeling suicidal to both the crisis and me.
He wanted to go home and wanted no further treatment here in the ER. Patient exhibited no signs of withdrawal .he last drank prior to arrival however he had arranged a ride to drive home. He was ambulatory in a steady gait here and did not appear
clinically intoxicated.
*Critical Care Note
Total Time (30-74mins, 75-104mins- exclusive of procedures): Not Applicable
ED Attending Note
-
Portions of this chart may have been created with voice recognition software.� Occasional wrong word or��sound alike� substitutions may have occurred due to the inherent limitations of voice recognition software.
Discharge Plan
Departure
Patient Disposition: Home (Routine Discharge)
Date of Disposition: 12/04/24
Time of Disposition: 11:50
Patient with high blood pressure during this ER visit?: Yes
Condition: Fair
Covid-19: Not Applicable
Discharge Problem:
Alcohol abuse
Instructions: Alcohol Use Disorder (DC)
Prescriptions:
No Action
Toujeo SoloStar U-300 Insulin 300 UNIT/ML insulin pen
40 unit SC DAILY
Rx Instructions:
pt adjusts per bs
insulin aspart U-100 100 UNIT/ML insulin pen
0 unit SQ .SLIDING SCALE MEALS
tamsulosin 0.4 MG capsule
0.4 mg PO DAILYPRN PRN (Reason: urinary symptoms)
ibuprofen 400 MG tablet
400 mg PO TIDPRN PRN (Reason: mild pain)
atorvastatin
1 tab PO DAILY
Rx Instructions:
LAST FILLED 02/13/22 FOR LISINOPRIL 5 MG #30
lisinopril
1 tab PO DAILY
Rx Instructions:
LAST FILLED 02/13/22 FOR LISINOPRIL 5 MG #30
acetaminophen 325 mg Capsule
650 mg PO Q4H PRN (Reason: pain)
Patient Comments:
pt taking large quantities this week 05/29/2022
Referrals:
NONE,* [Family Provider] -
Activity Restrictions/Additional Instructions:
Today you were offered rehab for alcohol abuse however declined.
Please follow-up with family doctor in the next 2 days for reevaluation
return if any worsening of symptoms.
Interventions
Interventions:
*Risk Screen - Suicide Last Done: 12/04/24 09:44
*Neglect/Abuse Screening Last Done: 12/04/24 09:44
*Nursing Disposition Last Done: 12/04/24 12:26
ED- Neurological Assessment Last Done: 12/04/24 11:43
ED-Psychological Assessment Last Done: 12/04/24 11:43
Discharge Date and Time
Discharge Date/Time: 12/04/24 12:28
Print Language: HEBREW
[2024-12-04] MEDS: NSS 1000 IV (11:18)
[2024-12-04 11:37] LABS: % Basophils 1.1 % (0-2); % Eosinophils 1.9 % (0-6); % Immature Granulocytes 0.6 % (0-0.5); % Lymphocytes 28.7 % (20.5-51.1); % Neutrophils 56.7 % (42.2-75.2); Absolute Basophils 0.1 10^3/uL (0-0.2); Absolute Eosinophils 0.1 10^3/uL (0-0.7); Absolute Lymphocytes 1.9 10^3/uL (1.2-3.4); Absolute Monocytes 0.7 10^3/uL (0.1-0.6); Absolute Neutrophils 3.7 10^3/uL (1.4-6.5); Hematocrit 41.4 % (39.0-52.0); Hemoglobin 14.6 g/dL (13.0-18.0); Mean Corp Hgb Conc. 35.3 g/dL (33.0-37.0); Mean Corpuscular Hgb 31.2 pg (27.0-31.0); Mean Corpuscular Volume 88.5 fL (80.0-94.0); Mean Platelet Volume 9.2 fL (7.4-10.4); Nucleated Red Blood Cells % 0 % (-); Platelet Count 231 10^3/uL (130-400); Red Blood Cell Count 4.68 10^6/uL (4.70-6.10); Red Cell Dist. Width 13.4 % (11.5-14.5); White Blood Cell Count 6.5 10^3/uL (4.8-10.8)
[2024-12-04 11:43] VITALS: BP 152/98
[2024-12-04 12:18] LABS: Glucose - Point of Care 159 mg/dl (70-99)
[2024-12-04 12:26] LABS: ALT (SGPT) 24 U/L (0-50); AST (SGOT) 25 U/L (17-59); Albumin 4.4 g/dl (3.5-5.0); Alkaline Phosphatase 79 U/L (38-126); Blood Urea Nitrogen 11 mg/dl (9-20); Carbon Dioxide 24 mmol/L (22-30); Chloride 103 mmol/L (98-107); Glucose 176 mg/dl (70-99); Sodium 139 mmol/L (135-145); Total Bilirubin 0.5 mg/dl (0.2-1.3); eGFR > 60.00
== END 2024-12-04 12:28 | disposition home or self-care (01) ==
LOC: EMR 09:33
PROVIDERS: Nurse Practitioner; EMERGENCY PHYSICIAN Student in an Organized Health Care Education/Training Program
DX: F10.90 Alcohol use, unspecified, uncomplicated (principal); F32.A Depression, unspecified; I10 Essential (primary) hypertension; E11.9 Type 2 diabetes mellitus without complications; F17.200 Nicotine dependence, unspecified, uncomplicated; Z79.4 Long term (current) use of insulin; Z59.6 Low income
CPT/HCPCS: 96360; 99284; 80053; 82962; 85025

== ENCOUNTER 2024-12-12 06:27 | Emergency (ER) | payer OTHER, SELFPAY ==
[2024-12-12] VITALS (8 sets, daily range): BP systolic 144–194; BP diastolic 86–112; BMI 26.3
--- NOTE | 2024-12-12 07:52 | ED.GENMED ---
History of Present Illness
General
Chief Complaint: Alcohol Problem
Time Seen by Provider: 12/12/24 07:52
History of Present Illness
History of Present Illness:
TIME OF INITIAL ENCOUNTER: 7:55 AM
HPI: The patient was seen here about 1 week ago and crisis was involved at that time related to alcohol abuse and depression. At that time the patient declined crisis services. ED denied being suicidal at that time but admitted to feeling
depressed and admitted to drinking alcohol. Last time he was here, it appears that he did not want to speak to [facility]. The patient tells me that he has a general unwell feeling. He feels he needs IV fluids and a nicotine patch.
EXAM:
GENERAL: Well appearing in no distress
HEENT: Moist oral mucosa
CARDIOVASCULAR: No murmurs, normal heart rate, regular rhythm, No chest wall tenderness
PULMONARY: No respiratory distress, breath sounds are clear and equal
ABDOMEN: Soft with no peritoneal signs, no tenderness
NEUROLOGIC: Excellent strength all extremities, no coordination deficits
PSYCHIATRIC: Somewhat of a bizarre affect but does not clinically appear intoxicated at this time
EXTREMITIES: Nontender, no edema, moves all extremities equally
SKIN: No rash, no lesions
NUMBER AND COMPLEXITY OF PROBLEMS ADDRESSED AT THE ENCOUNTER
� Chronic conditions affecting care: Alcoholism
� Acute Exacerbation and/or Progression of Chronic Illness: This is an acute but recurring problem
� Differential Diagnosis includes: Exacerbation of alcoholism, acute alcohol intoxication, anemia, LFT abnormality
AMOUNT AND/OR COMPLEXITY OF DATA TO BE REVIEWED AND ANALYZED
� I performed an independent evaluation of and my interpretation is:
EKG:
CT:
X-rays:
Laboratory Studies: White count 4.6, hemoglobin normal, chemistries unremarkable, however LFTs are abnormal with transaminases of AST 177 and ALT of 265, alk phos is slightly elevated, ammonia is normal
Other: Ultrasound shows no acute abnormality
� Review of other/old records: When patient was seen here in September, his UDS was positive for benzos, when the patient was here on 11/27/2023, his alcohol level was 240. LFTs were normal earlier this year.
� Clinical information was obtained by an independent historian: None needed however I did review recent records and spoke to LORETO who has seen him in the past
� Prescriptions/Medications Considered but not given:
� Further testing considered but not performed:
RISK OF COMPLICATIONS AND/OR MORBIDITY OR MORTALITY OF PATIENT MANAGEMENT
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
� Discussion with other providers: I spoke to Stephan from [facility] at 8:04 AM and he will evaluate the patient at bedside
� Escalation of care including admission/observation vs risk of discharge considered:
ANY OTHER UPDATES:
8:35 AM: Patient requested something to help with his anxiety. I have ordered 2 mg of IV Ativan. LFTs are newly abnormal therefore ultrasound was obtained which is relatively unremarkable for any acute abnormality. Ammonia level normal. LORETO
is planning transfer to rehab facility. Although transaminase elevation is new, I suspect this is related to alcohol use. I feel it will be best if patient could be transferred to a rehab facility. Patient is agreeable for this at this time.
12:40 PM: I spoke to Stephan from [facility] who indicates that we are waiting to hear back from [facility] and [facility]
1:30 PM: Patient has been accepted at [facility]. As of right now, Stephan is asking [facility] Florian to pick him up here and transfer him to their facility.
Past History
Past History
ED Past Medical History: HTN, IDDM, Psychiatric and Other (Pancreatitis, alcoholism, GI bleeding, )
ED Past Surgical History: None
Social History
Tobacco: Smoker
Alcohol: Chronic alcoholic (15 Beers daily)
Drug: None
Personal: Partner
Living: with family
Phy Exam
Physical Exam
Physical Exam:
See HPI
Scores
Withdrawal Assessment of Alcohol
Withdrawal Assessment Completed?: No
Course
Orders/Labs/Results
Orders:
Orders
12/12/24 07:59
Alcohol Urgent
CMP [Comprehensive Metabolic Panel] Urgent
Complete Blood Count/With Diff Urgent
12/12/24 08:02
0.9% Sodium Chloride 1000 ml [Nss] 1,000 ml IV BOLUS
Nicotine [Nicoderm Transdermal] 21 mg TRANSDERM NOW STA
12/12/24 08:32
Lorazepam [Ativan] 2 mg IV NOW STA
12/12/24 08:33
Lorazepam [Ativan] 2 mg .ROUTE .STK-MED ONE
12/12/24 08:36
US Abdomen Complete/Upper Urgent
Comment:
Reason For Exam: alcoholism, pain, abnormal LFts
12/12/24 08:37
Ammonia Urgent
12/12/24 13:13
Lorazepam [Ativan] 2 mg IV NOW STA
12/12/24 13:14
Lorazepam [Ativan] 2 mg .ROUTE .STK-MED ONE
Abnormal Lab Results
12/12/24
07:59
WBC 4.6 L 10^3/uL
(4.8-10.8)
RBC 4.63 L 10^6/uL
(4.70-6.10)
MCH 31.5 H pg
(27.0-31.0)
Monocytes % 12.4 H %
(1.7-9.3)
Glucose 196 H mg/dl
(70-99)
AST 177 H U/L
(17-59)
ALT 265 H U/L
(0-50)
Alkaline Phosphatase 216 H U/L
(38-126)
12/12/24 07:59
12/12/24 07:59
Vital Signs
Initial and Last Documented VS:
Initial Vital Signs
Temp Pulse Resp BP Pulse Ox
36.3 C 100 24 194/112 98
12/12/24 06:28 12/12/24 06:28 12/12/24 06:28 12/12/24 06:28 12/12/24 06:28
Last Documented Vital Signs
Temp Pulse Resp BP Pulse Ox
36.3 C 91 23 183/112 99
12/12/24 06:28 12/12/24 13:16 12/12/24 13:16 12/12/24 13:16 12/12/24 13:16
*Critical Care Note
Total Time (30-74mins, 75-104mins- exclusive of procedures): Not Applicable
ED Attending Note
-
Portions of this chart may have been created with voice recognition software.� Occasional wrong word or��sound alike� substitutions may have occurred due to the inherent limitations of voice recognition software.
Discharge Plan
Departure
Patient Disposition: Acute Rehab Facility
Date of Disposition: 12/12/24
Time of Disposition: 11:35
Discharge Problem:
Alcoholism
Instructions: Alcohol Use Disorder (DC)
Prescriptions:
No Action
Toujeo SoloStar U-300 Insulin 300 UNIT/ML insulin pen
40 unit SC DAILY
Rx Instructions:
pt adjusts per bs
insulin aspart U-100 100 UNIT/ML insulin pen
0 unit SQ .SLIDING SCALE MEALS
tamsulosin 0.4 MG capsule
0.4 mg PO DAILYPRN PRN (Reason: urinary symptoms)
ibuprofen 400 MG tablet
400 mg PO TIDPRN PRN (Reason: mild pain)
atorvastatin
1 tab PO DAILY
Rx Instructions:
LAST FILLED 02/13/22 FOR LISINOPRIL 5 MG #30
lisinopril
1 tab PO DAILY
Rx Instructions:
LAST FILLED 02/13/22 FOR LISINOPRIL 5 MG #30
acetaminophen 325 mg Capsule
650 mg PO Q4H PRN (Reason: pain)
Patient Comments:
pt taking large quantities this week 05/29/2022
Referrals:
UNKNOWN - PT NOT,INTERVIEWE [Family Provider] -
Activity Restrictions/Additional Instructions:
[facility] should be picking you up. Return here if worse or other concerns.
Interventions
Interventions:
*Risk Screen - Suicide Last Done: 12/12/24 07:46
*General Assessment Last Done: 12/12/24 07:46
*Neglect/Abuse Screening Last Done: 12/12/24 07:46
*ED- Fall Risk Assessment Last Done: 12/12/24 09:39
*ED COVID-19 Vaccine History Last Done: 12/12/24 07:46
ED- Cardiac Assessment Last Done: 12/12/24 07:46
ED- Neurological Assessment Last Done: 12/12/24 07:46
ED-Psychological Assessment Last Done: 12/12/24 07:46
ED- Pulmonary Assessment Last Done: 12/12/24 07:46
Discharge Date and Time
Print Language: BELARUSIAN
[2024-12-12] MEDS: NICODERM TRANSDERMAL 21 MG TRANSDERM (08:06)
[2024-12-12] MEDS: NSS 1000 IV (08:07)
[2024-12-12 08:08] LABS: % Basophils 1.1 % (0-2); % Eosinophils 5.2 % (0-6); % Immature Granulocytes 0.2 % (0-0.5); % Lymphocytes 26.8 % (20.5-51.1); % Monocytes 12.4 % (1.7-9.3); % Neutrophils 54.3 % (42.2-75.2); Absolute Basophils 0.1 10^3/uL (0-0.2); Absolute Eosinophils 0.2 10^3/uL (0-0.7); Absolute Lymphocytes 1.2 10^3/uL (1.2-3.4); Absolute Monocytes 0.6 10^3/uL (0.1-0.6); Absolute Neutrophils 2.5 10^3/uL (1.4-6.5); Hematocrit 41.1 % (39.0-52.0); Hemoglobin 14.6 g/dL (13.0-18.0); Mean Corp Hgb Conc. 35.5 g/dL (33.0-37.0); Mean Corpuscular Hgb 31.5 pg (27.0-31.0); Mean Corpuscular Volume 88.8 fL (80.0-94.0); Mean Platelet Volume 9.2 fL (7.4-10.4); Nucleated Red Blood Cells % 0 % (-); Platelet Count 203 10^3/uL (130-400); Red Blood Cell Count 4.63 10^6/uL (4.70-6.10); Red Cell Dist. Width 13.4 % (11.5-14.5); White Blood Cell Count 4.6 10^3/uL (4.8-10.8)
[2024-12-12 08:23] LABS: ALT (SGPT) 265 U/L (0-50); AST (SGOT) 177 U/L (17-59); Albumin 4.1 g/dl (3.5-5.0); Alcohol 102 mg/dl; Alkaline Phosphatase 216 U/L (38-126); Blood Urea Nitrogen 10 mg/dl (9-20); Calcium 9.3 mg/dl (8.4-10.2); Carbon Dioxide 27 mmol/L (22-30); Chloride 100 mmol/L (98-107); Estimated Creatinine Clearance 95 ml/min; Glucose 196 mg/dl (70-99); Potassium 4.1 mmol/L (3.5-5.1); Sodium 137 mmol/L (135-145); Total Bilirubin 0.9 mg/dl (0.2-1.3); eGFR > 60.00
[2024-12-12] MEDS: ATIVAN 2 MG IV ×2 (08:34→13:17)
[2024-12-12 08:59] LABS: Ammonia 19 umol/L (9-30)
== END 2024-12-12 14:43 ==
LOC: EMR 06:27
PROVIDERS: EMERGENCY PHYSICIAN Emergency Medicine
DX: F10.20 Alcohol dependence, uncomplicated (principal); F32.A Depression, unspecified; D64.9 Anemia, unspecified; F41.9 Anxiety disorder, unspecified; E11.9 Type 2 diabetes mellitus without complications; I10 Essential (primary) hypertension; F17.200 Nicotine dependence, unspecified, uncomplicated; Z87.19 Personal history of other diseases of the digestive system
CPT/HCPCS: 99285; 96374; 96361; 96376; 76700; 80053; 82077; 82140; 85025

== ENCOUNTER 2025-01-30 14:01 | Inpatient (IN) | payer MEDICARE, OTHER, SELFPAY ==
[2025-01-30] VITALS (7 sets, daily range): BP systolic 146–195; BP diastolic 89–117; BMI 25.1
--- NOTE | 2025-01-30 09:37 | ED.GENMED ---
History of Present Illness
General
Chief Complaint: Cold/Flu/URI Symptoms
Source: patient
Exam Limitations: none
Time Seen by Provider: 01/30/25 08:59
Nursing documentation reviewed up to this point in time: agreed with
History of Present Illness
History of Present Illness:
The patient is a 64-year-old male with a self-reported history of depression and excessive alcohol use. As documented previously patient also has a history of hypertension diabetes pancreatitis .he presents with complaints of feeling 'so goddamn
depressed' and has been drinking excessively for the past several days. The patient indicates that two beers cause him to sleep for about two hours, and additional consumption results in further sleep, but he never sleeps more than two hours at a
time. He drinks daily, with the last reported consumption being on Wednesday, and uses alcohol primarily to assist with sleep. He denies any suicidal thoughts. He does report he walked here lives in the trailer home by himself.
The patient also reported feeling dizzy with frequent nose wiping, and ' pain all over.' . He experiences pain described as headaches and general aches. Despite these symptoms, he has not been on any medication for depression and indicates no
recent psychiatric evaluations.
The patient mentioned non-compliance with his prescribed blood pressure medication, Lisinopril, due to an absence of a primary physician or recent prescription. He takes his diabetes medication, Toujeo consistently and monitors his blood glucose,
which he reports fluctuates between 70 and 300. He administers insulin injections as needed when glucose levels rise significantly. His blood pressure is reportedly uncontrolled, contributing to his distress.
The patient does not wish to pursue inpatient rehabilitation for alcoholism, expressing skepticism about its efficacy but acknowledges attending Alcoholics Anonymous (AA) meetings. He expressed a desire for hydration and pain relief and hopes for
outpatient resources for ongoing depression.
Patient last drank alcohol yesterday no prior history withdrawal seizures.
Past History
Past History
ED Past Medical History: HTN, IDDM, Psychiatric and Other (Pancreatitis, alcoholism, GI bleeding, )
ED Past Surgical History: None
Social History
Tobacco: Smoker
Alcohol: Chronic alcoholic (15 Beers daily)
Drug: None
Personal: Partner
Living: with family
Review of Systems
Review of Systems
Allergies reviewed?: Yes
All Other Systems: ROS reviewed and negative except as documented in HPI and ROS
Constitutional: Reports no symptoms; Denies fever, fatigue or chills
EENT: Reports runny nose
Respiratory: Reports no symptoms
Cardiac: Reports no symptoms
ABD/GI: Reports nausea
: Reports no symptoms
Musculoskeletal: Reports other (Body aches)
Skin: Reports no symptoms
Neurological: Reports no symptoms
Psychiatric: Reports no symptoms
Phy Exam
General Physical Exam
General Presentation: no apparent distress
General age: appears stated age
General Skin: warm and dry
General Habitus: normal
General Mental: alert
General Hydration: appears well hydrated
Cardiovascular Exam
Cardiovascular Exam: regular rate/rhythm, no murmur and normal peripheral pulses
Pulmonary Exam
Pulmonary Exam: lungs clear and no respiratory distress
Gastrointestinal Exam
Gastrointestinal Exam: non tender and soft
Neurological Exam
Neurological Exam: alert and oriented x3
Donald Coma Scale
Eye Opening: Spontaneous
Verbal Response: Oriented
Motor Response: Obeys Commands
GCS Total Score: 15
Musculoskeletal Exam
Musculoskeletal Exam: full ROM
Skin Exam
Skin Exam: normal color and warm/dry
Psychiatric Exam
Psychiatric Exam: anxious
Course
Orders/Labs/Results
Orders:
Orders
01/30/25 09:40
0.9% Sodium Chloride 1000 ml [Nss] 1,000 ml IV BOLUS
Ketorolac [Toradol] 15 mg IV NOW STA
01/30/25 09:46
Electrocardiogram (*1) Stat
Reason for Study: Other
Other Reason for Exam: chest pain
EKG- Treatment ONCE
Ketorolac [Toradol] 15 mg .ROUTE .STK-MED ONE
01/30/25 09:57
Alcohol Urgent
COVID-19 Antigen Urgent
Source: Nasal Swab
Complete Blood Count/With Diff Urgent
Comprehensive Metabolic Panel Urgent
Lipase Urgent
Comment: ADD
Influenza A+B Rapid Molecular Urgent
TEJAL Source: Nasal Swab
Specimen Description:
01/30/25 10:03
Crisis Consult Urgent
Reason for Consult: depressed
01/30/25 10:45
Urinalysis Reflex To Culture Urgent
Date Specimen was Collected: 01/30/25
Time Specimen was Collected: 10:44
Urine Drug Abuse Screen Urgent
Date Specimen was Collected: 01/30/25
Time Specimen was Collected: 10:44
Urine Microscopic Reflex Cult Urgent
01/30/25 10:50
Nicotine [Nicoderm Transdermal] 7 mg TRANSDERM NOW STA
01/30/25 11:23
Add On- LAB Urgent
Tests Added?: lipase
01/30/25 11:26
Chest [CR Chest - 2 Views ] Urgent
Comment:
Reason For Exam: sob
01/30/25 11:29
Troponin I Urgent
01/30/25 12:16
Ondansetron Injectable [Zofran] 4 mg IV NOW STA
01/30/25 12:17
Lorazepam [Ativan] 2 mg .ROUTE .STK-MED ONE
Lorazepam [Ativan] 2 mg IV NOW STA
01/30/25 13:04
Add On- LAB Urgent
Tests Added?: alcohol level
01/30/25 13:30
HydrALAZINE [Apresoline] 10 mg IV NOW STA
01/30/25 13:31
Admit/Transfer Patient As Directed
Co-Sign Provider:
Level of Care: Inpatient admission
Assign to:: Telemetry
Physician / Group: yahaira jackson
Diagnosis: Alcohol withdrawal, depression, uncontrolled HTN
Reason for Telemetry: Arrhythmia
Date to Stop Telemetry: 02/02/25
Time to Stop Telemetry: 11:00
Reason for Hospitalization: Alcohol withdrawal, depression, uncontrolled HTN
Expected length of stay greater than two midnights?: Yes
ELOS- Estimated Length of Stay in days: 4
I certify the patient meets the requirements for IP care: Yes
Code Status As Directed
Resuscitation Status: Full Code
01/30/25 13:34
PRN Pain Medication Management As Directed
May give lesser potent ordered pain med per pt: Yes
preference::
Protocol:: Medication orders for pain may be administered in a
manner that supports deferring to patient preference
when the pt is:
- Requesting an ordered lesser potent pain medication.
Least to most potent pain medications are defined
as: acetaminophen < NSAID < tramadol < opioids
(morphine, oxycodone, hydromorphone).
- Requesting a lesser dose of the same medication IF
ORDERED.
- Requesting a less intrusive route of administration
if both routes are prescribed by the provider (PO <
IV).
01/30/25 13:35
Lisinopril [Zestril] 5 mg PO NOW STA
02/02/25 11:00
DC Protocol for Telemetry ONCE
Abnormal Lab Results
01/30/25 01/30/25
09:57 10:45
MCH 32.3 H pg
(27.0-31.0)
Absolute Neuts (auto) 8.8 H 10^3/uL
(1.4-6.5)
Absolute Lymphs (auto) 1.0 L 10^3/uL
(1.2-3.4)
Absolute Monos (auto) 0.8 H 10^3/uL
(0.1-0.6)
Neutrophils % 81.9 H %
(42.2-75.2)
Lymphocytes % 9.6 L %
(20.5-51.1)
Carbon Dioxide 20 L mmol/L
(22-30)
BUN 22 H mg/dl
(9-20)
Glucose 254 H mg/dl
(70-99)
Total Bilirubin 1.5 H mg/dl
(0.2-1.3)
AST 330 H U/L
(17-59)
ALT 87 H U/L
(0-50)
Alkaline Phosphatase 136 H U/L
(38-126)
Ur Occult Blood Reflex 2+ A
(Negative)
Urine Glucose 3+ A
(Negative)
Urine Albumin (Reflex) 3+ A
(Neg - Trace)
01/30/25 09:57
01/30/25 09:57
Vital Signs
Initial and Last Documented VS:
Initial Vital Signs
Temp Pulse Resp BP Pulse Ox
98.2 F 99 18 179/117 100
01/30/25 08:32 01/30/25 08:32 01/30/25 08:32 01/30/25 08:32 01/30/25 08:32
Last Documented Vital Signs
Temp Pulse Resp BP Pulse Ox
97.6 F 85 18 195/110 98
01/30/25 13:01 01/30/25 13:01 01/30/25 13:01 01/30/25 13:01 01/30/25 13:01
Delicatessen Clerk consulted with Physician
Delicatessen Clerk consulted with physician?: Yes
Name of Physician Consulted: Madhavi
MDM/Problems Addressed
MDM/Problems Addressed:
Patient is a 64-year-old male with past medical history of chronic alcohol abuse pancreatitis hypertension diabetes noncompliant with all of his medications presents to the ER today with multiple complaints. He does not feel well. He complains of
generalized bodyaches anxiety.
Patient reports he last drank yesterday. He drinks beer. He does live alone. He is not interested in [facility]. I had patient speak with crisis he is not wanting inpatient treatment. He is not suicidal.
While patient was here he presents develop more anxiety and started to have nausea and dry heaving. Likely from withdrawal. Patient was given Ativan/Zofran and fluids. He is hypertensive and reports he ran out of his blood pressure medication.
His white count was normal he denies any fevers he does have elevated LFTs, they have been elevated in the past increased. His lipase is however normal. Troponin was done and negative. His urinalysis is negative. Chest x-ray negative. Patient
will require admissio to treat withdrawl.
Chronic conditions affecting care:
chronic alcohol abuse pancreatitis, diabetes
*Critical Care Note
Total Time (30-74mins, 75-104mins- exclusive of procedures): Not Applicable
ED Attending Note
-
Portions of this chart may have been created with voice recognition software.� Occasional wrong word or��sound alike� substitutions may have occurred due to the inherent limitations of voice recognition software.
Discharge Plan
Departure
Patient Disposition: Admit
Date of Disposition: 01/30/25
Time of Disposition: 12:57
Admit to: Telemetry
Admit to doctor: hospitalist
Presentation/result/management discussed w/ accepting MD/DO: Hospitalist
Patient with high blood pressure during this ER visit?: Yes
Condition: Fair
Discharge Problem:
acute alcohol withdrawl
Prescriptions:
No Action
insulin glargine U-300 conc [Toujeo SoloStar U-300 Insulin] 300 UNIT/ML insulin pen
40 unit SC DAILY
tamsulosin 0.4 MG capsule
0.4 mg PO BID
atorvastatin [Lipitor] 20 mg Tablet
20 mg PO DAILY
lisinopril 5 mg Tablet
5 mg PO DAILY
acetaminophen [Tylenol] 325 mg Tablet
650 mg PO DAILY
Referrals:
UNKNOWN - PT NOT,INTERVIEWE [Family Provider]
Interventions
Interventions:
*Risk Screen - Suicide Last Done: 01/30/25 08:32
*General Assessment Last Done: 01/30/25 10:48
*Neglect/Abuse Screening Last Done: 01/30/25 08:32
*ED- Fall Risk Assessment Last Done: 01/30/25 10:48
*ED COVID-19 Vaccine History Last Done: 01/30/25 08:32
ED- Pulmonary Assessment Last Done: 01/30/25 10:02
Discharge Date and Time
Print Language: [email or web address]
[2025-01-30] MEDS: NSS 1000 IV ×2 (09:58→15:12)
[2025-01-30] MEDS: TORADOL 15 MG IV ×2 (09:58→17:05)
[2025-01-30 10:08] LABS: % Basophils 0.6 % (0-2); % Eosinophils 0.1 % (0-6); % Immature Granulocytes 0.4 % (0-0.5); % Lymphocytes 9.6 % (20.5-51.1); % Monocytes 7.4 % (1.7-9.3); % Neutrophils 81.9 % (42.2-75.2); Absolute Basophils 0.1 10^3/uL (0-0.2); Absolute Monocytes 0.8 10^3/uL (0.1-0.6); Absolute Neutrophils 8.8 10^3/uL (1.4-6.5); Hematocrit 43.8 % (39.0-52.0); Hemoglobin 16.1 g/dL (13.0-18.0); Mean Corp Hgb Conc. 36.8 g/dL (33.0-37.0); Mean Corpuscular Hgb 32.3 pg (27.0-31.0); Mean Platelet Volume 9.3 fL (7.4-10.4); Nucleated Red Blood Cells % 0 % (-); Platelet Count 201 10^3/uL (130-400); Red Blood Cell Count 4.98 10^6/uL (4.70-6.10); Red Cell Dist. Width 13.7 % (11.5-14.5); White Blood Cell Count 10.7 10^3/uL (4.8-10.8)
[2025-01-30 10:36] LABS: ALT (SGPT) 87 U/L (0-50); AST (SGOT) 330 U/L (17-59); Albumin 4.5 g/dl (3.5-5.0); Alkaline Phosphatase 136 U/L (38-126); Blood Urea Nitrogen 22 mg/dl (9-20); Calcium 9.3 mg/dl (8.4-10.2); Carbon Dioxide 20 mmol/L (22-30); Chloride 104 mmol/L (98-107); Glucose 254 mg/dl (70-99); Potassium 4.5 mmol/L (3.5-5.1); Sodium 137 mmol/L (135-145); Total Bilirubin 1.5 mg/dl (0.2-1.3); Total Protein 7.6 g/dl (6.3-8.2); eGFR > 60.00
[2025-01-30 10:50] LABS: COVID-19 Antigen Negative (Negative)
[2025-01-30] MEDS: NICODERM TRANSDERMAL 7 MG TRANSDERM (11:03)
[2025-01-30 11:06] LABS: Urine Albumin 3+ (Neg - Trace); Urine Bilirubin Negative (Negative); Urine Character Clear (Clear); Urine Color Yellow; Urine Glucose 3+ (Negative); Urine Ketone Negative (Negative); Urine Leukocyte Negative (Negative); Urine Nitrite Negative (Negative); Urine Occult Blood 2+ (Negative); Urine Specific Gravity 1.025 (<1.030); Urine Urobilinogen Negative (Neg - 1+)
[2025-01-30 11:22] LABS: Amphetamines Negative (Negative); Barbiturates Negative (Negative); Benzodiazepines Negative (Negative); Buprenorphine Negative (Negative); Cocaine Negative (Negative); Marijuana Negative (Negative); Methadone Negative (Negative); Methamphetamines Negative (Negative); Opiates Negative (Negative); Phencyclidine Negative (Negative); Tricyclic Antidepressants Negative (Negative)
[2025-01-30 11:29] LABS: Urine Red Blood Cell 0-2 /HPF (0-2); Urine Squamous Cell 0-2 /LPF (Few)
[2025-01-30 11:44] LABS: Lipase 38 U/L (23-300)
[2025-01-30] MEDS: ATIVAN 2 MG IV (12:21)
[2025-01-30] MEDS: ZOFRAN 4 MG IV (12:21)
[2025-01-30 12:23] LABS: Troponin I < 0.012 ng/ml
--- NOTE | 2025-01-30 13:08 | HPS.HSE ---
Family Physician
-
Family Physician: INTERVIEWE UNKNOWN - PT NOT
Chief Complaint
-
Headache, body aches, depression, alcohol abuse
History of Present Illness
64-year-old male who states he has been extremely depressed due to situational issues [place] sewage leaking and trees about the fall on his car that the park will not take care of. He has been drinking excessively for the past several
days., However he states he drinks approximately a sixpack a day and occasional vodka He reports he uses 2 beers to sleep 2 hours at a time he does live alone in a trailer by himself but denies suicidal ideation he also complains of feeling dizzy
with rhinorrhea, general body aches, headaches he did run out of his blood pressure medication lisinopril due to absence of a primary care physician. He believes he had lisinopril initially filled at an ER but he does not have a primary care
physician however he does have Medicare Medicaid insurance. I did advise him to call the back of his card to establish care with a PCP for his medical management. He is taking Toujeo for his diabetes in which she has extreme fluctuations from
70-300. He reports last drink of alcohol was yesterday he has no wish to pursue inpatient rehab for alcoholism he states he does attend outpatient alcoholic Anonymous meetings. He denies history of alcohol withdrawal seizures. Patient reports
improvement of his body aches and headache with Ativan given in the ER. The patient has past medical history of alcohol abuse, pancreatitis due to alcoholism, HTN, DM 2, GI bleed, active smoker/COPD, insomnia
Medical History
Past Medical History
Past Medical History: Reports Other
Additional Past Medical History:
alcohol abuse
pancreatitis due to alcoholism
HTN
DM 2
GI bleed
active smoker/COPD
insomnia
Past Surgical History: Reports None
Social History
Tobacco: Smoker (1-1.5 pack/day x 45 years)
Alcohol: Daily (6 beers daily occasional vodka)
Drug: None
Personal: Single
Living: Alone ([facility])
Employment: Employed (Drives cars for car auction)
Family History
Family History: Other (Father alcohol abuse, 5 brothers only speaks to one of them unsure of medical history, mother still living history of DM 2)
Allergies / Home Medications
Allergies reflects when Allergies were last updated in [facility].
Home Medications with original date entered in [facility]
Allergy/Medication List:
Allergies
Allergy/AdvReac Type Severity Reaction Status Date / Time
No Known Allergies Allergy Verified 12/12/24 03:38
Home Medications
insulin glargine U-300 conc 300 unit/mL (1.5 mL) subcutaneous pen (Toujeo SoloStar U-300 Insulin) 40 unit SC DAILY Diabetes 09/22/16
tamsulosin 0.4 mg capsule 0.4 mg PO BID 09/15/21
atorvastatin 20 mg tablet (Lipitor) 20 mg PO DAILY High cholesterol 05/29/22
lisinopril 5 mg tablet 5 mg PO DAILY Blood pressure 05/29/22
Review of Systems
-
History Source: Patient
A 12 point ROS was completed and negative except as noted: Yes
Constitutional: Reports Fatigue and Other (Generalized body aches); Denies Fever or Chills
EENT: Reports Runny Nose (Rhinorrhea); Denies Sore Throat
Respiratory: Denies Cough or Trouble Breathing
Cardiac: Denies Chest Pain, Diaphoresis or Palpitations
Abdomen/GI: Denies Abdominal Pain, Nausea, Vomiting, Diarrhea, Constipated, Bloody Stools or Black Stools
: Denies Dysuria, Frequency, Flank Pain, Incontinence, Difficulty Voiding, Urgency, Bleeding or Dark Urine
Musculoskeletal: Reports Other (Generalized body aches); Denies Joint Pain or Edema
Skin: Denies Itching or Rash
Neurological: Reports Headache; Denies Dizzy or Weakness
Endocrine: Reports No Symptoms
Hematologic/Lymphatic: Reports No Symptoms
Psych: Reports Calm
Physical Exam
Vital Signs
Vital Signs
Temp Pulse Resp BP Pulse Ox
97.6 F 85 18 195/110 98
01/30/25 13:01 01/30/25 13:01 01/30/25 13:01 01/30/25 13:01 01/30/25 13:01
Physical Exam
General: No Fever, Chills or Sweats
HEENT: NormoCephalic, Anicteric, Moist mucous membranes, PERRLA, [place] Conjunctivae and No Ptosis
Respiratory: Clear; No Wheezes, Rales or Rhonchi
Cardiac: S1/S2 and Regular Rhythm; No Murmur, Rub, Gallop or Peripheral Edema
Breast: Deferred by me
GI: Soft, Non Tender, Non Distended, Normal Bowel Sounds and No Hepatosplenomegaly
Rectal: Deferred by Provider
Genito-urinary: Deferred by me
Musculoskeletal: No Clubbing, No Cyanosis and No Edema
Skin: Warm and Dry; No Rash or Jaundice
Neuro: AO x 3, No Motor Deficits, Nonfocal/grossly intact, Cranial Nerves Intact and No Sensory Deficits; No Facial Droop, Tremors or Sedated
Psych: Calm
Laboratory Results
-
01/30/25 09:57
01/30/25 09:57
Laboratory Results
Total Bilirubin 1.5 mg/dl (0.2-1.3) H 01/30/25 09:57
AST 330 U/L (17-59) H 01/30/25 09:57
ALT 87 U/L (0-50) H 01/30/25 09:57
Alkaline Phosphatase 136 U/L (38-126) H 01/30/25 09:57
Troponin I < 0.012 ng/ml 01/30/25 11:29
Lipase 38 U/L (23-300) 01/30/25 09:57
Data Reviewed
-
Lab Data: Labs Reviewed by me
Impression/Plan
-
Impression/plan:
Admit to telemetry
#Alcohol withdrawal/history alcohol abuse
#History of alcohol-induced pancreatitis
Symptoms of bodyaches, headache
Drinks 6 beers a day last drink was yesterday 01/29/2025 at 5 PM
-Check alcohol level, UDS negative, COVID-negative
- MSAs screen with protocol
- IV thiamine ,IV folate, IV Ativan as needed
-IV NSS 100 cc an hour
-IV Toradol as needed
- Patient was seen by crisis he does not want any inpatient treatment for rehab states he will do outpatient AA
CXR: Lungs appear hyperinflated suggestive of COPD.
EKG: NSR 87 bpm, QTc [address] abnormality no change from November 27, 2023
# Acute on chronic depression
Patient denies suicidal/homicial ideation, no prior hx suicide
Reports is related to issues with leaking send were and falling trees [place] that no one is paying attention to however patient is an alcoholic likely self-medicating
- Does not want inpatient treatment
- Advised patient to establish care with PCP now that he has Medicare Medicaid
# Hypertension urgency due to lack of medication lisinopril/ withdrawal
- Patient was on lisinopril but ran out due to no PCP
BP 179/117
-IV hydralazine 10 mg now
- Resume lisinopril 5 mg now and daily
#Acute on chronic transaminitis secondary to alcohol abuse
Follow CMP
- Hold Lipitor 20 mg daily
#DM2 with hyperglycemia
BS 254
-Accu-Cheks with SSI, check HgbA1c
-cont Toujeo 40 units daily will give 20 units daily while inpatient
#COPD by CXR
#Nicotine abuse
1 to 1.5 pack/day x 45 years
- Cessation advised
- Nicotine patch 21 mg
#Insomnia likely secondary to alcohol abuse
- Patient advised cessation of alcohol will help his insomnia
DVT prophylaxis
Subcu Lovenox
Full code
[2025-01-30 13:16] LABS: Alcohol 137 mg/dl
--- NOTE | 2025-01-30 13:48 | W.PN.UPDATE ---
Update Note
Progress Note Update
This note serves as an addendum to the H&P by torpedoman's mate NAA Amy KILLIAN
HPI and PMHX
64M HX chronic alcohol abuse, depression , self medication HTN, ran out of Lisinopril pw MANZO, noted HTN urgence ( 195/110) recently acuquired medicare /medicaid huest qulified as of November 26 pw MANZO, uncontrol HTN , concern fr ETOH WDS. Last ETOH
use 01/29/25 1700. Pending ETOH leval,pending UDS.
- Report insomnia and body aches
- Denied Nausea and vomiting
- ran out of lisinopril for 1 month
At ER
IV Toradol
IV ativan 2 mg at noon nd fall asleep
PE:
NAD
Unremarkable exam
Chest Clear
Cor RRR S1 S2
soft benign abdomen
No tremors
ASSESSMENT & PLAN
HTN urgency due to ran out of Lisinopril and elements of ETOH WDS
Early ETOH WDS with associated transaminitis
Chr ETOH use disorder
Nicotine use disorder
Insomnia
Significant improved anxiety after IV Ativan
Depression but declined IP Tx from behavioral care
Denied suicidal ideation and homicidal ideation
No prior HX attempted suicide
HX DM and Hyperglycemia
HLD on atorvastatin
- Unremarkable labs
- Preserved renal function
- IV Hydralazine PRN for SBP > 165, DBP > 110
- Resume Lisinopril 10mg daily and observe BP
- ETOH WD protocol
- Resumed [employer] Insulin regime
- add ISS low
- Hold atorvastatin due to abn LFTs
- Nicotine PRINTMAKER
- follow up CBC, CMP daily
DVT Px: LMW
Full code
IP TLM
[2025-01-30] MEDS: ZESTRIL 5 MG PO (14:13)
[2025-01-30] MEDS: APRESOLINE 10 MG IV (14:13)
[2025-01-30 14:51] LABS: Glucose - Point of Care 135 mg/dl (70-99)
[2025-01-30] MEDS: LANTUS 0.2 UNITS SC (14:55)
[2025-01-30] MEDS: THIAMINE INJECTION 200 MG IV ×2 (15:24→23:18)
[2025-01-30 15:28] LABS: GGTP 539 U/L (15-73); Magnesium 1.6 mg/dl (1.6-2.3); Phosphorus 2.8 mg/dl (2.5-4.5)
[2025-01-30 15:29] LABS: INR 1.02; PT 13.8 Sec (11.4-14.6)
[2025-01-30 16:11] LABS: B-Hydroxybutyrate 0.13 mmol/L (0.02-0.27)
[2025-01-30 16:18] LABS: Glucose - Point of Care 124 mg/dl (70-99)
[2025-01-30] MEDS: NOVOLOG FLEXPEN-LOW RESISTANCE SC (16:45)
[2025-01-30] MEDS: LOVENOX 40 MG SC (16:57)
[2025-01-30] MEDS: ATIVAN 1 MG PO ×2 (18:23→22:18)
[2025-01-30 21:41] LABS: Glucose - Point of Care 122 mg/dl (70-99)
[2025-01-31] MEDS: NSS 1000 IV ×2 (01:15→10:08)
[2025-01-31 03:00] VITALS: BP 156/94
[2025-01-31 03:00] LABS: Glucose - Point of Care 50 mg/dl (70-99)
[2025-01-31 03:18] LABS: Glucose - Point of Care 74 mg/dl (70-99)
[2025-01-31 07:29] LABS: Glucose - Point of Care 53 mg/dl (70-99)
[2025-01-31 07:35] LABS: % Basophils 0.3 % (0-2); % Eosinophils 0.1 % (0-6); % Immature Granulocytes 0.6 % (0-0.5); % Lymphocytes 17.1 % (20.5-51.1); % Neutrophils 71.9 % (42.2-75.2); Absolute Lymphocytes 1.2 10^3/uL (1.2-3.4); Absolute Monocytes 0.7 10^3/uL (0.1-0.6); Absolute Neutrophils 5.2 10^3/uL (1.4-6.5); Hematocrit 36.7 % (39.0-52.0); Hemoglobin 13.5 g/dL (13.0-18.0); Mean Corp Hgb Conc. 36.8 g/dL (33.0-37.0); Mean Corpuscular Hgb 32.6 pg (27.0-31.0); Mean Corpuscular Volume 88.6 fL (80.0-94.0); Nucleated Red Blood Cells % 0 % (-); Platelet Count 153 10^3/uL (130-400); Red Blood Cell Count 4.14 10^6/uL (4.70-6.10); Red Cell Dist. Width 13.8 % (11.5-14.5); White Blood Cell Count 7.2 10^3/uL (4.8-10.8)
[2025-01-31] MEDS: NOVOLOG FLEXPEN-LOW RESISTANCE SC ×2 (07:38→12:05)
[2025-01-31 07:39] VITALS: BP 178/100
[2025-01-31 07:53] LABS: Glucose - Point of Care 76 mg/dl (70-99)
[2025-01-31] MEDS: NICODERM TRANSDERMAL 21 MG TRANSDERM (07:56)
[2025-01-31] MEDS: FOLVITE 1 MG PO (07:58)
[2025-01-31] MEDS: ZESTRIL 5 MG PO (07:58)
[2025-01-31] MEDS: THIAMINE INJECTION 200 MG IV ×2 (07:58→15:51)
[2025-01-31 08:08] LABS: ALT (SGPT) 69 U/L (0-50); AST (SGOT) 135 U/L (17-59); Albumin 3.5 g/dl (3.5-5.0); Alkaline Phosphatase 129 U/L (38-126); Blood Urea Nitrogen 15 mg/dl (9-20); Calcium 8.6 mg/dl (8.4-10.2); Carbon Dioxide 25 mmol/L (22-30); Chloride 108 mmol/L (98-107); Estimated Creatinine Clearance 84 ml/min; Glucose 49 mg/dl (70-99); Potassium 3.6 mmol/L (3.5-5.1); Sodium 138 mmol/L (135-145); Total Bilirubin 1.7 mg/dl (0.2-1.3); eGFR > 60.00
[2025-01-31 08:11] LABS: Glucose - Point of Care 96 mg/dl (70-99)
[2025-01-31] MEDS: LANTUS 0.2 UNITS SC (09:17)
--- NOTE | 2025-01-31 09:23 | W.PN.HOSP.TC ---
Today's Communication/Plan
-
See plan
Assessment / Plan
Assessment / Plan
Impression:
Severe alcohol use disorder with concern for evolving delirium tremens/alcohol withdrawal syndrome
Hypertensive urgency secondary to above
Hypoglycemia
Abnormal LFTs in a pattern of alcohol induced liver injury
Conditions prior to admission
IDDM
Essential hypertension
Dyslipidemia
History of alcohol induced pancreatitis
Tobacco use disorder
History of CVA.
Severe anxiety/depression
Plan:*
Severe alcohol use disorder with concern for evolving alcohol withdrawal/delirium tremens.
Patient tremulous and anxious
Noted with accelerated blood pressure.
Initiate phenobarbital taper.
Continue MSAS protocol with lorazepam.
Start clonidine 0.1 twice daily.
IV thiamine
Hypertensive urgency secondary to alcohol withdrawal.
Increase lisinopril to 10 mg daily.
Start clonidine
Monitor blood pressure trend
IDDM with hypoglycemia.
Patient reports erratic oral intake likely related to alcohol use and severe anxiety
Update hemoglobin A1c 8.0
Preadmission regimen including glargine 40 units daily.
Morning blood glucose at 49.
Continue carbohydrate controlled diet.
Reduce glargine by 50% down to 20 units
Continue basal bolus protocol with serial Accu-Cheks and monitor for recurrent hypoglycemia
Abnormal LFTs suspect secondary to alcohol induced liver injury (AST ALT pattern).
Noted with mild hyperbilirubinemia at 1.7.
Continue IV hydration and monitor trend.
If uptrending consider imaging.
Tobacco use disorder
Continue with nicotine patch
Anticipated Discharge: 24 - 48 hours
Subjective/Interval History
-
Date of Service: January 31, 2025
Objective Data
-
Labs:
Laboratory Results
01/31/25 01/31/25
06:33 06:34
WBC 7.2
Hgb 13.5
Hct 36.7 L
Plt Count 153 D
Sodium 138
Potassium 3.6
Chloride 108 H
Carbon Dioxide 25
BUN 15
Creatinine 0.9
Glucose 49 L*
Calcium 8.6
Total Bilirubin 1.7 H
AST 135 H
ALT 69 H
Alkaline Phosphatase 129 H
Vital Signs:
Vital Signs
Temp Pulse Resp BP Pulse Ox
97.9 F 86 18 178/100 95
01/31/25 07:39 01/31/25 07:58 01/31/25 07:39 01/31/25 07:58 01/31/25 07:39
I&O
01/30/25 01/31/25 02/01/25
06:59 06:59 06:59
Intake Total 370 / 370
Balance 370 / 370
Physical Exam
-
General: Well Developed and No Apparent Distress
HEENT: Normocephalic, Atraumatic and Moist Mucous Membranes
Respiratory: Clear to Auscultation
Cardiac: Regular Rhythm and S1/S2; Negative Murmur, Rub or Gallop
GI: Soft, Nontender, Nondistended and Normal Bowel Sounds; Negative Organomegaly
Rectal: Deferred by Provider
Musculoskeletal: No Clubbing, No Cyanosis and No Edema
Skin: Negative Rash
Neuro: Awake, Alert, Oriented, AO x 3 and Nonfocal/Grossly Intact
Psych: Anxious
[2025-01-31] MEDS: PHENOBARBITAL 104 MG IV (10:03)
[2025-01-31] MEDS: CATAPRES 0.1 MG PO (10:07)
[2025-01-31 10:51] VITALS: BP 163/87
[2025-01-31 11:53] LABS: Glucose - Point of Care 167 mg/dl (70-99)
[2025-01-31 15:29] VITALS: BP 148/84
[2025-01-31] MEDS: PHENOBARBITAL 97.5 MG IV (15:50)
--- NOTE | 2025-01-31 15:56 | CM ---
Patient seen at bedside, explained role of CM
IA completed
dx: alcohol withdrawal, depression, uncontrolled HTN
PMH: IDDM, Essential HTN, Dyslipidemia, alcohol induced pancreatitis, tobacco use disorder, cvs, anxiety, depression
CM consult completed for substance abuse and pcp (reports no PCP)
Patient declines [facility] resources-states he does attend outpatient alcoholic Anonymous meetings
does not want inpatient rehab
Insurance card given to CM & verified - CM called [employer] active as of 12/21/24
[employer] Medicare HMO
ID #: [id number]
pcp on card: [facility] - DALILA with office
Residency clinic resource given to the patient as well
Patient lives alone in a mobile home
PLOF: Independent - Denies DME
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
Denies VN/States [facility] inpatient in past
PCP: states he does not have - information given to patient on residency clinic
Pharmacy: [facility], [place]
PLAN: tbd, refuses [facility] resources, CM to continue to follow hospital progress
[2025-01-31 16:46] LABS: Glucose - Point of Care 203 mg/dl (70-99)
[2025-01-31] MEDS: TYLENOL 650 MG PO (16:53)
[2025-01-31] MEDS: LOVENOX SC (16:55)
[2025-01-31] MEDS: NOVOLOG FLEXPEN-LOW RESISTANCE 2 UNITS SC (17:19)
--- NOTE | 2025-01-31 18:30 | PTCARENOTE ---
Pt AMA at 1830. At 1630 pt rang call chambers stating he was unable to order another food tray. I called [facility] and they informed me he was unable to get another tray because he ate 4 trays already throughout the day and is a diabetic. When I
educated him and offered snacks as well as a boxed lunch, he agreed to have both angrily. After eating the snacks and lunch box he demanded he needed to see a doctor because he was not seen enough today. When I asked him what was wrong and if there
was anything i could do, he stated 'no, nurses and doctors are withholding me from food.' After trying to educate him, still stated 'no one has fed him'. After another RN came in to try to talk him he said he wanted to leave. After education on what
leaving AMA would mean he said he understood and still wanted to leave. Doctor and cross coverage notified. Pt signed AMA paper, IV taken out, and teley box disconnected. Pt walked out of the hospital at 1830.
== END 2025-01-31 19:38 | disposition left against medical advice (07) | DRG 894 ==
LOC: 3 WEST ACU 14:01
PROVIDERS: Clinical Nurse Specialist Family Health; Nurse Practitioner; ADMITTING PHYSICIAN Internal Medicine; ATTENDING PHYSICIAN Internal Medicine; EMERGENCY PHYSICIAN Emergency Medicine
DX: F10.239 Alcohol dependence with withdrawal, unspecified (principal); F32.A Depression, unspecified; F17.200 Nicotine dependence, unspecified, uncomplicated; I16.0 Hypertensive urgency; E11.9 Type 2 diabetes mellitus without complications; I10 Essential (primary) hypertension; F41.9 Anxiety disorder, unspecified; Z79.4 Long term (current) use of insulin; Z11.52 Encounter for screening for COVID-19
CPT/HCPCS: 71046; 80053; 80306; 81003; 81015; 82010; 82077; 82962; 82977; 83036; 83690; 83735; 84100; 84484; 85025; 85610; 85730; 87502; 87811; 93005; 96361; 96374; 96375; 99285; 99406

== ENCOUNTER 2025-02-06 02:34 | Emergency (ER) | payer MEDICARE, OTHER, SELFPAY ==
[2025-02-06 02:36] VITALS: BP 143/79
[2025-02-06 03:49] VITALS: BP 146/77
[2025-02-06 04:00] VITALS: BP 133/85
--- NOTE | 2025-02-06 04:12 | ED.GENMED ---
History of Present Illness
General
Chief Complaint: Alcohol Problem
Source: patient
Exam Limitations: none
Time Seen by Provider: 02/06/25 02:40
Nursing documentation reviewed up to this point in time: agreed with
History of Present Illness
History of Present Illness:
Note:
CHIEF COMPLAINT(S)
Heavy alcohol consumption and vomiting.
HISTORY OF PRESENT ILLNESS
The patient is a 64-year-old male presenting to the emergency department after consuming approximately 15 beers daily over the past few days, accompanied by episodes of vomiting. He reports feeling unable to manage his life challenges recently,
resulting in increased alcohol intake. He denies any head trauma from falls during this period. He last drank alcohol just before arrival, brought in by a friend. Although the patient has attempted to quit drinking multiple times, he finds himself
unable to sustain sobriety. He was admitted to the hospital for similar issues last week but had to leave. Currently, he expresses concern about his mental health, fearing he might 'do something stupid' due to feelings of isolation and lack of
support. The patient expresses willingness to consider rehabilitation as he feels unable to resolve the problem independently.
SOCIAL DETERMINANTS AFFECTING HEALTH
The patient reports significant stress due to life problems and a lack of social support from friends or family. He attributes increased alcohol consumption partly to these stressors.
SOCIAL HISTORY
The patient reports smoking cigarettes. He also acknowledges a significant history of alcohol use, with previous attempts to quit, including attending a rehab facility a few months ago.
MEDICATIONS
The patient states that he is taking 'lots' of medications but does not specify which ones.
PHYSICAL EXAM
- General: The patient appears alert and oriented but exhibits signs of distress related to his situation.
- Nursing notes reviewed and vital signs reviewed.
PROBLEM LIST
Acute Problems:
- Acute alcohol intoxication and withdrawal symptoms.
- Vomiting.
PLAN
- Assessment by drug rehab counselor and exploration of possible placement for alcohol rehabilitation.
DIFFERENTIAL DIAGNOSIS
The Differential Diagnosis includes, in no particular order and is not limited to:
1. Acute alcohol intoxication
2. Alcohol withdrawal syndrome
3. Gastroenteritis
4. Peptic ulcer disease
5. Electrolyte imbalance secondary to vomiting
6. Depression with suicidal ideation
7. Upper gastrointestinal bleeding
8. Anxiety disorder
9. Pancreatitis
10. Liver disease
CARE-UPDATE
02/06/25 - 04:13
Patient reports heavy alcohol consumption today, approximately 15 beers. Denies experiencing alcohol withdrawal symptoms. Expressed feelings of disgust towards substance use. Patient declined inpatient treatment but agreed to a home visit scheduled
for later today with a drug and alcohol counselor.
Disposition:
SUMMARY OF ENCOUNTER
The patient, a 64-year-old male, was seen in the emergency department due to heavy alcohol consumption and vomiting. He consumed approximately 15 beers daily over the past few days. The patient expressed concerns about his mental health and a
willingness to consider rehabilitation for his alcohol use. Despite having attempted sobriety multiple times, he finds it challenging due to feelings of isolation and stressors in his life. His primary complaint during this visit is related to his
alcohol use and associated symptoms.
DISPOSITION
The patient will be discharged home with a friend.
PLAN
The patient is to follow up with a drug and alcohol specialist. Return precautions were provided to the patient.
PATIENT EDUCATION AND COUNSELING
I informed the patient about the risks of excessive alcohol consumption on his health, including the potential for alcohol withdrawal and other related complications. The importance of considering rehabilitation and seeking ongoing support was
emphasized.
SMOKING CESSATION COUNSELING
The patient smokes cigarettes. I counseled him on cessation and informed him that smoking poses significant health risks, including cancer, lung disease, and heart disease. I encouraged him to consider quitting and discussed cessation aids like
nicotine patches or gum. He was advised to consult with his primary care provider for additional options and to pick a quit date.
MEDICATION RECONCILIATION
The patient mentioned being on 'lots' of medications but did not specify which ones.
MEDICAL DECISION MAKING
Number and Complexity of Problems Addressed: The patients heavy alcohol consumption and associated symptoms presented complex acute and chronic issues. The differential diagnosis included conditions like acute alcohol intoxication, alcohol
withdrawal syndrome, electrolyte imbalances, and mental health concerns.
Data: The patients history and physical exam were reviewed, and potential alcohol-related complications were assessed.
Risk: Social determinants of health, such as lack of support and stressors leading to increased alcohol use, were considered when planning the patients care. The risk of potential hospitalization for withdrawal symptoms or related complications was
acknowledged.
Past History
Past History
ED Past Medical History: HTN, IDDM, Psychiatric and Other (Pancreatitis, alcoholism, GI bleeding, )
ED Past Surgical History: None
Social History
Tobacco: Smoker
Alcohol: Chronic alcoholic (15 Beers daily)
Drug: None
Personal: Partner
Living: with family
Phy Exam
Physical Exam
Physical Exam:
.
Scores
Withdrawal Assessment of Alcohol
Withdrawal Assessment Completed?: Not applicable
Course
Vital Signs
Initial and Last Documented VS:
Initial Vital Signs
Temp Pulse Resp BP Pulse Ox
98.1 F 85 18 143/79 97
02/06/25 02:36 02/06/25 02:36 02/06/25 02:36 02/06/25 02:36 02/06/25 02:36
Last Documented Vital Signs
Temp Pulse Resp BP Pulse Ox
98.1 F 86 17 133/85 97
02/06/25 02:36 02/06/25 03:51 02/06/25 03:51 02/06/25 04:00 02/06/25 04:00
*Pulse Oximetry
Patient hypoxic: no (97)
*Critical Care Note
Total Time (30-74mins, 75-104mins- exclusive of procedures): Not Applicable
ED Attending Note
-
Portions of this chart may have been created with voice recognition software.� Occasional wrong word or��sound alike� substitutions may have occurred due to the inherent limitations of voice recognition software.
Discharge Plan
Departure
Patient Disposition: Home (Routine Discharge)
Date of Disposition: 02/06/25
Time of Disposition: 04:16
Patient with high blood pressure during this ER visit?: Yes
Condition: Good
Discharge Problem:
Alcohol abuse
Instructions: Drug Misuse and Addiction (DC), Alcohol Use Disorder (DC)
Prescriptions:
No Action
insulin glargine U-300 conc [Toujeo SoloStar U-300 Insulin] 300 UNIT/ML insulin pen
40 unit SC DAILY
tamsulosin 0.4 MG capsule
0.4 mg PO BID
atorvastatin [Lipitor] 20 mg Tablet
20 mg PO DAILY
lisinopril 5 mg Tablet
5 mg PO DAILY
acetaminophen [Tylenol] 325 mg Tablet
650 mg PO DAILY
Referrals:
UNKNOWN - PT DOES,NOT KNOW [Family Provider]
Activity Restrictions/Additional Instructions:
Follow up with primary care and rehab couselors. Return for any concerns.
Interventions
Interventions:
*Risk Screen - Suicide Last Done: 02/06/25 02:36
*General Assessment Last Done: 02/06/25 03:03
*Neglect/Abuse Screening Last Done: 02/06/25 02:36
*ED- Fall Risk Assessment Last Done: 02/06/25 03:03
*ED COVID-19 Vaccine History Last Done: 02/06/25 03:03
ED- Neurological Assessment Last Done: 02/06/25 03:03
ED-Psychological Assessment Last Done: 02/06/25 03:03
Discharge Date and Time
Print Language: MONTENEGRIN
== END 2025-02-06 04:48 | disposition home or self-care (01) ==
LOC: EMR 02:34
PROVIDERS: EMERGENCY PHYSICIAN Emergency Medicine
DX: F10.10 Alcohol abuse, uncomplicated (principal); E11.9 Type 2 diabetes mellitus without complications; I10 Essential (primary) hypertension; F17.210 Nicotine dependence, cigarettes, uncomplicated; Z79.4 Long term (current) use of insulin; Z63.8 Other specified problems related to primary support group
CPT/HCPCS: 99282

== ENCOUNTER 2025-04-03 12:46 | Emergency (ER) | payer MEDICARE, OTHER, SELFPAY ==
[2025-04-03 12:50] VITALS: BP 95/66
--- NOTE | 2025-04-03 13:11 | ED.GENMED ---
History of Present Illness
General
Chief Complaint: Alcohol Problem
Source: patient
Exam Limitations: none
Time Seen by Provider: 04/03/25 12:54
Nursing documentation reviewed up to this point in time: agreed with
History of Present Illness
History of Present Illness:
Patient with history of chronic alcoholism, presents to ED by paramedics, after he called foundations and staff found him to be confused on the phone. Upon arrival, patient is alert and awake, but appears to be intoxicated, and admits to having had
alcohol. However, beyond that initial information, patient is uncooperative and inappropriate, with his responses and stating that he does not wish to be treated by 'oriental doctor'. Patient states that he can be dropped off at home by brush loader and handle attacher.
Past History
Past History
ED Past Medical History: HTN, IDDM, Psychiatric and Other (Pancreatitis, alcoholism, GI bleeding, )
ED Past Surgical History: None
Social History
Tobacco: Smoker
Alcohol: Chronic alcoholic (15 Beers daily)
Drug: None
Personal: Partner
Living: with family
Review of Systems
Review of Systems
Allergies reviewed?: Yes
Unable to obtain full review of systems at this time due to: other (uncooperative)
All Other Systems: Not applicable
Phy Exam
Physical Exam
Physical Exam:
Physical Exam
General: no apparent distress, not acutely ill. afebrile
Head: nc/at. eomi
Neck: supple. normal range of motion
Neuro: alert and oriented. no focal neurological deficits.
Skin: no rash
Psychiatric: uncooperative, inappropriate, and confrontational
Extremities: no edema.
Scores
Withdrawal Assessment of Alcohol
Withdrawal Assessment Completed?: Not applicable
Course
Vital Signs
Initial and Last Documented VS:
Initial Vital Signs
BP Pulse Ox
95/66 95
04/03/25 12:50 04/03/25 12:50
Last Documented Vital Signs
Temp BP Pulse Ox
98.8 F 95/66 95
04/03/25 12:52 04/03/25 12:50 04/03/25 13:13
MDM/Problems Addressed
MDM/Problems Addressed:
Patient engaging in inappropriate conversation, as well as behavior, towards myself as well as nursing staff. No indication for any acute medical condition at this time, as patient is alert and awake, with stable vital signs. Although patient
appears to have alcohol on board, patient is able to weakly express his thoughts and needs at this time. As such, I do not feel that any further evaluation or treatment is warranted at this time, especially as patient has been evaluated in ED on
multiple occasions with similar complaint, and had refused assistance, i.e. alcohol detox/rehab, and opted to be discharged home
Pt noted to come out of stretcher and pacing in the hallway making inappropriate comments, but walking steadily without assistance. Pt will be taken home by police officers.
*Pulse Oximetry
SaO2: 95
Patient hypoxic: not evaluated
*Critical Care Note
Total Time (30-74mins, 75-104mins- exclusive of procedures): Not Applicable
ED Attending Note
-
Portions of this chart may have been created with voice recognition software.� Occasional wrong word or��sound alike� substitutions may have occurred due to the inherent limitations of voice recognition software.
Discharge Plan
Departure
Patient Disposition: Home (Routine Discharge)
Date of Disposition: 04/03/25
Time of Disposition: 13:23
Patient with high blood pressure during this ER visit?: No
Discharge Problem:
Alcohol dependence
Instructions: Alcohol Use Disorder (DC)
Prescriptions:
No Action
insulin glargine U-300 conc [Toujeo SoloStar U-300 Insulin] 300 UNIT/ML insulin pen
40 unit SC DAILY
tamsulosin 0.4 MG capsule
0.4 mg PO BID
atorvastatin [Lipitor] 20 mg Tablet
20 mg PO DAILY
lisinopril 5 mg Tablet
5 mg PO DAILY
acetaminophen [Tylenol] 325 mg Tablet
650 mg PO DAILY
Referrals:
UNKNOWN - PT DOES,NOT KNOW [Family Provider]
Activity Restrictions/Additional Instructions:
As discussed, please follow up with your primary care physician and/or rehab facility for further evaluation and treatment
Interventions
Interventions:
*Risk Screen - Suicide Last Done: 04/03/25 12:53
*General Assessment Last Done: 04/03/25 12:53
*Neglect/Abuse Screening Last Done: 04/03/25 12:53
*ED COVID-19 Vaccine History Last Done: 04/03/25 12:53
*Nursing Disposition Last Done: 04/03/25 13:30
ED- Neurological Assessment Last Done: 04/03/25 12:54
ED-Psychological Assessment Last Done: 04/03/25 12:54
Discharge Date and Time
Discharge Date/Time: 04/03/25 13:30
Print Language: THAI
== END 2025-04-03 13:30 | disposition home or self-care (01) ==
LOC: EMR 12:46
PROVIDERS: EMERGENCY PHYSICIAN Emergency Medicine
DX: F10.20 Alcohol dependence, uncomplicated (principal); E11.9 Type 2 diabetes mellitus without complications; I10 Essential (primary) hypertension; F17.200 Nicotine dependence, unspecified, uncomplicated; Z79.4 Long term (current) use of insulin
CPT/HCPCS: 99283

== ENCOUNTER 2025-04-09 15:45 | Emergency (ER) | payer MEDICARE, OTHER, SELFPAY ==
[2025-04-09 16:06] VITALS: BP 158/72
[2025-04-09 16:35] LABS: Hematocrit 41.3 % (39.0-52.0); Hemoglobin 14.6 g/dL (13.0-18.0); Mean Corp Hgb Conc. 35.4 g/dL (33.0-37.0); Mean Corpuscular Volume 91.4 fL (80.0-94.0); Nucleated Red Blood Cells % 0 % (-); Platelet Count 234 10^3/uL (130-400); Red Cell Dist. Width 13.6 % (11.5-14.5)
[2025-04-09 16:55] LABS: ALT (SGPT) 20 U/L (0-50); AST (SGOT) 34 U/L (17-59); Albumin 4.4 g/dl (3.5-5.0); Alkaline Phosphatase 86 U/L (38-126); Blood Urea Nitrogen 10 mg/dl (9-20); Calcium 9.0 mg/dl (8.4-10.2); Carbon Dioxide 17 mmol/L (22-30); Chloride 104 mmol/L (98-107); Glucose 79 mg/dl (70-99); Lipase 15 U/L (23-300); Potassium 4.6 mmol/L (3.5-5.1); Sodium 134 mmol/L (135-145); Total Protein 7.4 g/dl (6.3-8.2); eGFR > 60.00
--- NOTE | 2025-04-09 18:57 | ED.GENMED ---
History of Present Illness
General
Chief Complaint: Alcohol Problem
Time Seen by Provider: 04/09/25 18:48
Nursing documentation reviewed up to this point in time: agreed with
History of Present Illness
History of Present Illness:
64-year-old male presents the ER via EMS for treatment of alcohol use disorder. Patient has extensive prior history of alcohol use. He has been to rehab before. He states that he relapsed over the weekend and is seeking treatment. He denies any
suicidal or homicidal thoughts. He denies prior history of alcohol withdrawal seizure. He reports feeling otherwise well. He denies any recent syncope or trauma. He denies any physical discomforts. No difficulty with breathing. No chest pain.
Past History
Past History
ED Past Medical History: HTN, IDDM, Psychiatric and Other (Pancreatitis, alcoholism, GI bleeding, )
ED Past Surgical History: None
Social History
Tobacco: Smoker
Alcohol: Chronic alcoholic (15 Beers daily)
Drug: None
Personal: Partner
Living: with family
Review of Systems
Review of Systems
Allergies reviewed?: Yes
Phy Exam
Physical Exam
Physical Exam:
Vital signs reviewed, patient is awake, alert, appears in no acute distress, ambulating in the department with a steady gait and no assistance, wearing glasses, mucous membranes moist, conjunctiva pink, heart regular rate and rhythm without murmurs
or ectopy, lungs are clear to auscultation not wheezes rales or rhonchi, extremities without edema, GCS is 15
Scores
Withdrawal Assessment of Alcohol
Withdrawal Assessment Completed?: Yes
Nausea and Vomiting: No nausea and no vomiting
Tactile Disturbances: None
Tremor: No tremor
Auditory Disturbances: Not present
Paroxysmal Sweats: No sweat visible
Visual Disturbances: Not present
Anxiety: No anxiety, at ease
Headache, Fullness in Head: Not present
Agitation: Normal activity
Orientation and clouding of sensorium: Oriented and can do serial additions
Total CIWA Score: 0
Alcohol Withdrawal Medication Recommendation: Equal to MSAS Score 0-4. Monitor & re-assess q2hrs, NO MEDICATION NEEDED
Course
Orders/Labs/Results
Orders:
Orders
04/09/25 16:17
Alcohol Urgent
Complete Blood Count/With Diff Urgent
Comprehensive Metabolic Panel Urgent
Lipase Urgent
Abnormal Lab Results
04/09/25
16:17
WBC 13.3 H 10^3/uL
(4.8-10.8)
RBC 4.52 L 10^6/uL
(4.70-6.10)
MCH 32.3 H pg
(27.0-31.0)
Abs Immat Gran (auto) 0.1 H 10^3/uL
(0-0.05)
Absolute Neuts (auto) 10.1 H 10^3/uL
(1.4-6.5)
Absolute Monos (auto) 1.0 H 10^3/uL
(0.1-0.6)
Neutrophils % 76.2 H %
(42.2-75.2)
Lymphocytes % 15.1 L %
(20.5-51.1)
Sodium 134 L mmol/L
(135-145)
Carbon Dioxide 17 L mmol/L
(22-30)
Lipase 15 L U/L
(23-300)
04/09/25 16:17
04/09/25 16:17
Nonspecific elevation of white blood count. Alcohol level elevated at 264
Vital Signs
Initial and Last Documented VS:
Initial Vital Signs
Temp Pulse Resp BP Pulse Ox
98.3 F 75 16 158/72 97
04/09/25 16:06 04/09/25 16:06 04/09/25 16:06 04/09/25 16:06 04/09/25 16:06
Last Documented Vital Signs
Temp Pulse Resp BP Pulse Ox
98.3 F 75 16 158/72 97
04/09/25 16:06 04/09/25 16:06 04/09/25 16:06 04/09/25 16:06 04/09/25 16:06
MDM/Problems Addressed
Differential Diagnosis Includes:
Differential diagnosis to consider but not limited to alcohol use disorder, depression, polysubstance use disorder along with other etiologies to considered
*Pulse Oximetry
SaO2: 97
Oxygen Mode of Delivery: Room air
Patient hypoxic: no
*Critical Care Note
Total Time (30-74mins, 75-104mins- exclusive of procedures): Not Applicable
Data Reviewed
Review of Other/Old Records Reveals: Records (I reviewed discharge summary dated 02/09/2025, Dr. Alvarenga. Patient had been admitted for symptoms related to alcohol withdrawal.)
ED Attending Note
-
Portions of this chart may have been created with voice recognition software.� Occasional wrong word or��sound alike� substitutions may have occurred due to the inherent limitations of voice recognition software.
Discharge Plan
Departure
Patient Disposition: Home (Routine Discharge)
Date of Disposition: 04/09/25
Time of Disposition: 18:54
Patient with high blood pressure during this ER visit?: Yes
Discharge Problem:
Alcohol intoxication
Instructions: Alcohol Use Disorder (DC), BLOOD PRESSURE
Prescriptions:
No Action
insulin glargine U-300 conc [Toujeo SoloStar U-300 Insulin] 300 UNIT/ML insulin pen
40 unit SC DAILY
tamsulosin 0.4 MG capsule
0.4 mg PO BID
atorvastatin [Lipitor] 20 mg Tablet
20 mg PO DAILY
lisinopril 5 mg Tablet
5 mg PO DAILY
acetaminophen [Tylenol] 325 mg Tablet
650 mg PO DAILY
Referrals:
[facility] [Outside]
Discharge Problem: Alcohol intoxication
Activity Restrictions/Additional Instructions:
Please contact your primary care physician and the [facility] in the morning to discuss further assistance and treatment for your alcohol use disorder. Return to the ER for any concerns
Interventions
Interventions:
*Risk Screen - Suicide Last Done: 04/09/25 18:49
*General Assessment Last Done: 04/09/25 18:49
*Neglect/Abuse Screening Last Done: 04/09/25 18:49
*ED- Fall Risk Assessment Last Done: 04/09/25 18:49
*ED COVID-19 Vaccine History Last Done: 04/09/25 18:49
ED-Psychological Assessment Last Done: 04/09/25 18:49
Discharge Date and Time
Print Language: SLOVENIAN
== END 2025-04-09 20:12 | disposition home or self-care (01) ==
LOC: EMR 15:45
PROVIDERS: Student in an Organized Health Care Education/Training Program; EMERGENCY PHYSICIAN Emergency Medicine
DX: F10.129 Alcohol abuse with intoxication, unspecified (principal); I10 Essential (primary) hypertension; E11.9 Type 2 diabetes mellitus without complications; F17.200 Nicotine dependence, unspecified, uncomplicated
CPT/HCPCS: 99283; 80053; 82077; 83690; 85025

== ENCOUNTER 2025-06-12 11:17 | Observation (INO) | payer MEDICARE, OTHER, SELFPAY ==
[2025-06-12 06:33] VITALS: BP 146/96
[2025-06-12 07:15] VITALS: BMI 25.6
[2025-06-12] MEDS: NSS 1000 IV (07:32)
[2025-06-12] MEDS: VALIUM INJECTION 2 MG IV ×2 (07:40→11:19)
[2025-06-12] MEDS: ZOFRAN 4 MG IV (07:40)
[2025-06-12 07:43] LABS: Hematocrit 43.5 % (39.0-52.0); Hemoglobin 14.7 g/dL (13.0-18.0); Mean Corp Hgb Conc. 33.8 g/dL (33.0-37.0); Mean Corpuscular Volume 92.0 fL (80.0-94.0); Nucleated Red Blood Cells % 0 % (-); Platelet Count 179 10^3/uL (130-400); Red Cell Dist. Width 13.2 % (11.5-14.5)
[2025-06-12 07:46] LABS: Urine Character Cloudy (Clear)
[2025-06-12 07:55] LABS: Urine Squamous Cell 0-2 /LPF (Few)
[2025-06-12 07:56] LABS: Urine Red Blood Cell 0-2 /HPF (0-2); Urine White Cell 30-40 /HPF (0-5)
[2025-06-12 08:00] VITALS: BP 186/95
[2025-06-12 08:06] LABS: ALT (SGPT) 20 U/L (0-50); AST (SGOT) 30 U/L (17-59); Albumin 4.3 g/dl (3.5-5.0); Alkaline Phosphatase 83 U/L (38-126); Blood Urea Nitrogen 12 mg/dl (9-20); Calcium 9.2 mg/dl (8.4-10.2); Carbon Dioxide 27 mmol/L (22-30); Chloride 103 mmol/L (98-107); Estimated Creatinine Clearance 105 ml/min; Glucose 148 mg/dl (70-99); Lipase 16 U/L (23-300); Magnesium 1.7 mg/dl (1.6-2.3); Potassium 3.8 mmol/L (3.5-5.1); Sodium 137 mmol/L (135-145); Total Protein 7.3 g/dl (6.3-8.2); eGFR > 60.00
--- NOTE | 2025-06-12 08:15 | ED.GENMED ---
History of Present Illness
<HWITNEY Hector Last Filed: 06/12/25 09:20>
General
Chief Complaint: Alcohol Problem
Source: patient
Exam Limitations: none
Time Seen by Provider: 06/12/25 06:56
Nursing documentation reviewed up to this point in time: agreed with
History of Present Illness
History of Present Illness:
see MDM
Past History
<WHITNEY Hector Last Filed: 06/12/25 09:20>
Past History
ED Past Medical History: HTN, IDDM, Psychiatric and Other (Pancreatitis, alcoholism, GI bleeding, )
ED Past Surgical History: None
Social History
Tobacco: Smoker
Alcohol: Chronic alcoholic (15 Beers daily)
Drug: None
Personal: Partner
Living: with family
Review of Systems
<WHITNEY Hector Last Filed: 06/12/25 09:20>
Review of Systems
Allergies reviewed?: Yes
All Other Systems: Not applicable
Phy Exam
<WHITNEY Hector Last Filed: 06/12/25 09:20>
Physical Exam
Physical Exam:
GENERAL: Alert , in no apparent distress
EYE: pupils equal and reactive
NECK: Supple
ENT: o/p clr, mmm.
CARDIAC: Regular rate and rhythm .
LUNGS: Clear breath sounds bilaterally, no acute respiratory distress, no wheezes/rales/rhonchi
ABDOMEN: Soft, without focal tenderness, no r/g, no cvat, normal bowel sounds
NEUROLOGICAL: Alert and oriented, seems mildly intoxicated no focal neuro deficits
SKIN: Warm and dry, skin intact.
MUSCULOSKELETAL: No edema, well perfused. neg john's sign
PSYCH: Intoxicated slightly
Scores
<WHITNEY Hector Filed: 06/12/25 09:20>
Withdrawal Assessment of Alcohol
Withdrawal Assessment Completed?: Yes
Nausea and Vomiting: Intermittent nausea with dry heaves
Tactile Disturbances: None
Tremor: No tremor
Auditory Disturbances: Not present
Paroxysmal Sweats: No sweat visible
Visual Disturbances: Not present
Anxiety: Mild anxiety
Headache, Fullness in Head: Very mild
Agitation: Normal activity
Orientation and clouding of sensorium: Oriented and can do serial additions
Total CIWA Score: 6
Alcohol Withdrawal Medication Recommendation: Equal to MSAS Score 0-4. Monitor & re-assess q2hrs, NO MEDICATION NEEDED
<Joe Arteaga MD - Last Filed: 06/12/25 16:11>
Withdrawal Assessment of Alcohol
Total CIWA Score: 6
Alcohol Withdrawal Medication Recommendation: Equal to MSAS Score 0-4. Monitor & re-assess q2hrs, NO MEDICATION NEEDED
Course
<Gillian Beaulieu PA-C - Last Filed: 06/12/25 09:20>
Orders/Labs/Results
Orders:
Orders
06/12/25 07:18
Add On- LAB Urgent
Tests Added?: magnesium, lipase
0.9% Sodium Chloride 1000 ml [Nss] 1,000 ml IV BOLUS
06/12/25 07:28
Alcohol Urgent
CMP [Comprehensive Metabolic Panel] Urgent
Complete Blood Count/With Diff Urgent
Lipase Urgent
Comment: ADD ON
Magnesium Urgent
Comment: ADD ON
06/12/25 07:29
Urinalysis Reflex To Culture Urgent
Date Specimen was Collected: 06/12/25
Time Specimen was Collected: 07:23
Urine Drug Abuse Screen Urgent
Date Specimen was Collected: 06/12/25
Time Specimen was Collected: 07:23
Urine Microscopic Reflex Cult Urgent
Urine Culture Urgent
TEJAL Source: U
Specimen Description:
Date Specimen was Collected: 06/12/25
Time Specimen was Collected: 07:23
06/12/25 07:35
Ondansetron Injectable [Zofran] 4 mg IV NOW STA
diazePAM [Valium Injection] 2 mg IV NOW STA
06/12/25 09:08
CefTRIAXone [Rocephin] 2,000 mg IV NOW STA
Thiamine Injection 200 mg IV NOW STA
06/12/25 09:17
Sterile Water [Sterile Water For Injection] 20 ml .ROUTE .STK-MED
06/12/25 09:58
Acetaminophen [Tylenol] 650 mg PO NOW STA
06/12/25 09:59
EKG [Electrocardiogram (*1)] Routine
Reason for Study: QTc Monitoring
06/12/25 Lunch
2000 calorie (17 carb) Diabetic
At Your Request: Limited Participation
Nicotine [Nicoderm Transdermal] 21 mg TRANSDERM DAILY
06/12/25 10:53
Admit/Transfer Patient As Directed
Co-Sign Provider:
Level of Care: Observation services
Assign to:: Medical/Surgical
Physician / Group: hospitalist
Diagnosis: urinary tract infection
06/12/25 10:54
PRN Pain Medication Management As Directed
May give lesser potent ordered pain med per pt: Yes
preference::
Protocol:: Medication orders for pain may be administered in a
manner that supports deferring to patient preference
when the pt is:
- Requesting an ordered lesser potent pain medication.
Least to most potent pain medications are defined
as: acetaminophen < NSAID < tramadol < opioids
(morphine, oxycodone, hydromorphone).
- Requesting a lesser dose of the same medication IF
ORDERED.
- Requesting a less intrusive route of administration
if both routes are prescribed by the provider (PO <
IV).
06/12/25 11:10
diazePAM [Valium Injection] 2 mg IV NOW STA
06/12/25 15:38
nifedipine 30 mg PO DAILY
06/12/25 15:38
DX Deep Vein Thrombosis Video Routine
06/12/25 15:45
Amlodipine [Norvasc] 5 mg PO DAILY
06/12/25 18:00
Enoxaparin Sodium [Lovenox] 40 mg SC QPM
06/12/25 20:00
Tamsulosin [Flomax] 0.4 mg PO BID
06/13/25 08:00
insulin glargine U-300 conc [Toujeo SoloStar U-300 Insulin] 40 unit SC DAILY
Abnormal Lab Results
06/12/25 06/12/25
07:28 07:29
MCH 31.1 H pg
(27.0-31.0)
Absolute Monos (auto) 0.7 H 10^3/uL
(0.1-0.6)
Monocytes % 11.6 H %
(1.7-9.3)
Glucose 148 H mg/dl
(70-99)
Lipase 16 L U/L
(23-300)
Ur Occult Blood Reflex 3+ A
(Negative)
Leukocyte Esterase Rfl 3+ A
(Negative)
Urine WBC (Reflex) 30-40 A /HPF
(0-5)
Urine Bacteria (Reflex) Many A
(Negative)
Urine Glucose 3+ A
(Negative)
Urine Albumin (Reflex) 3+ A
(Neg - Trace)
06/12/25 07:28
06/12/25 07:28
Vital Signs
Initial and Last Documented VS:
Initial Vital Signs
Temp Pulse Resp BP Pulse Ox
98.1 F 101 22 146/96 97
06/12/25 06:33 06/12/25 06:33 06/12/25 06:33 06/12/25 06:33 06/12/25 06:33
Last Documented Vital Signs
Temp Pulse Resp BP Pulse Ox
98.3 F 86 20 187/92 93
06/12/25 11:15 06/12/25 12:37 06/12/25 11:45 06/12/25 12:37 06/12/25 08:45
<Joe Arteaga MD - Last Filed: 06/12/25 16:11>
Orders/Labs/Results
Orders:
Orders
06/12/25 07:18
Add On- LAB Urgent
Tests Added?: magnesium, lipase
0.9% Sodium Chloride 1000 ml [Nss] 1,000 ml IV BOLUS
06/12/25 07:28
Alcohol Urgent
CMP [Comprehensive Metabolic Panel] Urgent
Complete Blood Count/With Diff Urgent
Lipase Urgent
Comment: ADD ON
Magnesium Urgent
Comment: ADD ON
06/12/25 07:29
Urinalysis Reflex To Culture Urgent
Date Specimen was Collected: 06/12/25
Time Specimen was Collected: 07:23
Urine Drug Abuse Screen Urgent
Date Specimen was Collected: 06/12/25
Time Specimen was Collected: 07:23
Urine Microscopic Reflex Cult Urgent
Urine Culture Urgent
TEJAL Source: U
Specimen Description:
Date Specimen was Collected: 06/12/25
Time Specimen was Collected: 07:23
06/12/25 07:35
Ondansetron Injectable [Zofran] 4 mg IV NOW STA
diazePAM [Valium Injection] 2 mg IV NOW STA
06/12/25 09:08
CefTRIAXone [Rocephin] 2,000 mg IV NOW STA
Thiamine Injection 200 mg IV NOW STA
06/12/25 09:17
Sterile Water [Sterile Water For Injection] 20 ml .ROUTE .STK-MED
06/12/25 09:58
Acetaminophen [Tylenol] 650 mg PO NOW STA
06/12/25 09:59
EKG [Electrocardiogram (*1)] Routine
Reason for Study: QTc Monitoring
06/12/25 Lunch
2000 calorie (17 carb) Diabetic
At Your Request: Limited Participation
Nicotine [Nicoderm Transdermal] 21 mg TRANSDERM DAILY
06/12/25 10:53
Admit/Transfer Patient As Directed
Co-Sign Provider:
Level of Care: Observation services
Assign to:: Medical/Surgical
Physician / Group: hospitalist
Diagnosis: urinary tract infection
06/12/25 10:54
PRN Pain Medication Management As Directed
May give lesser potent ordered pain med per pt: Yes
preference::
Protocol:: Medication orders for pain may be administered in a
manner that supports deferring to patient preference
when the pt is:
- Requesting an ordered lesser potent pain medication.
Least to most potent pain medications are defined
as: acetaminophen < NSAID < tramadol < opioids
(morphine, oxycodone, hydromorphone).
- Requesting a lesser dose of the same medication IF
ORDERED.
- Requesting a less intrusive route of administration
if both routes are prescribed by the provider (PO <
IV).
06/12/25 11:10
diazePAM [Valium Injection] 2 mg IV NOW STA
06/12/25 15:38
nifedipine 30 mg PO DAILY
06/12/25 15:38
DX Deep Vein Thrombosis Video Routine
06/12/25 15:45
Amlodipine [Norvasc] 5 mg PO DAILY
06/12/25 18:00
Enoxaparin Sodium [Lovenox] 40 mg SC QPM
06/12/25 20:00
Tamsulosin [Flomax] 0.4 mg PO BID
06/13/25 08:00
insulin glargine U-300 conc [Toujeo SoloStar U-300 Insulin] 40 unit SC DAILY
Abnormal Lab Results
06/12/25 06/12/25
07:28 07:29
MCH 31.1 H pg
(27.0-31.0)
Absolute Monos (auto) 0.7 H 10^3/uL
(0.1-0.6)
Monocytes % 11.6 H %
(1.7-9.3)
Glucose 148 H mg/dl
(70-99)
Lipase 16 L U/L
(23-300)
Ur Occult Blood Reflex 3+ A
(Negative)
Leukocyte Esterase Rfl 3+ A
(Negative)
Urine WBC (Reflex) 30-40 A /HPF
(0-5)
Urine Bacteria (Reflex) Many A
(Negative)
Urine Glucose 3+ A
(Negative)
Urine Albumin (Reflex) 3+ A
(Neg - Trace)
06/12/25 07:28
06/12/25 07:28
Vital Signs
Initial and Last Documented VS:
Initial Vital Signs
Temp Pulse Resp BP Pulse Ox
98.1 F 101 22 146/96 97
06/12/25 06:33 06/12/25 06:33 06/12/25 06:33 06/12/25 06:33 06/12/25 06:33
Last Documented Vital Signs
Temp Pulse Resp BP Pulse Ox
98.3 F 86 20 187/92 93
06/12/25 11:15 06/12/25 12:37 06/12/25 11:45 06/12/25 12:37 06/12/25 08:45
<Gililan Beaulieu PA-C - Last Filed: 06/12/25 09:20>
MDM/Problems Addressed
Differential Diagnosis Includes:
see MDM
MDM/Problems Addressed:
Note:
CHIEF COMPLAINT(S)
The patient presents with feelings of malaise, urinary incontinence, and concerns regarding alcohol withdrawal.
HISTORY OF PRESENT ILLNESS
The patient is a 64-year-old male who reports not feeling well generally, and main has foul smelling urine and has had some urianry incontiennce x 1 week. He describes not being able to reach the bathroom in time, with some dysuria. he has not had
ho UTIs.
The patient acknowledges long-standing alcohol use, consuming approximately 64 ounces of malt liquor daily for the past 50 years. He last drank this morning around 5 PM and admits to experiencing dry heaves and nausea, though he has not vomited
recently. He experiences heightened sensitivity to noise, allegedly influenced by the surrounding environment. The patient reports emotional distress, with recent slurred speech, which he attributes to not having the appropriate glasses
prescription. He denies any visual or auditory hallucinations, though he feels confusion and difficulty with focus. Furthermore, he expresses suicidal thoughts and hopelessness, desiring rehabilitation support to manage his alcohol withdrawal more
effectively. He was previously treated at a rehabilitation center but acknowledges short-term sobriety. He currently administers insulin daily and monitor his blood sugar regularly.
denies fever, chills, back pain
SOCIAL DETERMINANTS AFFECTING HEALTH
The patient resides alone, noting significant stress factors related to his mothers health, who was recently found unconscious and subsequently hospitalized and transferred to a rehabilitation facility. Alcohol misuse is a contributing factor to his
health concerns.
PHYSICAL EXAM
- Nursing notes reviewed and vital signs reviewed.
- Neurological: The patient displays a slowness in speech and acknowledgment of needing corrective lenses for visual aid.
PROBLEM LIST
Acute Problems:
- Alcohol withdrawal.
- Urinary incontinence.
- Elevated blood pressure.
Chronic Problems:
- Diabetes mellitus on insulin therapy.
- Long-term alcohol use.
PLAN
- Evaluate the patients current blood glucose levels, renal function, electrolytes, and other potential indicators for hospitalization.
- Administer antihypertensive medication to control blood pressure.
- Explore admission to an inpatient program for alcohol withdrawal and possible rehabilitation guidance.
DIFFERENTIAL DIAGNOSIS
The Differential Diagnosis includes, in no particular order and is not limited to:
1. Alcohol withdrawal syndrome
2. Urinary tract infection
3. Stress-induced urinary incontinence
4. Hypertensive urgency
5. Depression with suicidal ideation
6. Decompensated diabetes mellitus
7. Anxiety disorder
8. Cognitive impairment secondary to alcohol use
9. Noise-induced auditory sensitivity
10. Medication-induced symptoms (e.g., due to noncompliance or interactions)
CARE-UPDATE
06/12/25 - 08:41
Patients blood sugar is at 148, and electrolytes are stable. A bladder infection is indicated, necessitating antibiotics. The patient is experiencing vomiting, with uncertainty if its due to alcohol or the infection. The patient reports a fever and
has alcohol in the system, measured at 145. Plan includes hospital admission for overnight observation, IV antibiotics, fluids, and monitoring for potential alcohol withdrawal symptoms.
<Gillian Beaulieu PA-C - Last Filed: 06/12/25 09:20>
*Pulse Oximetry
SaO2: 97
Oxygen Mode of Delivery: Room air
Patient hypoxic: no (97)
*Critical Care Note
Total Time (30-74mins, 75-104mins- exclusive of procedures): Not Applicable
ED Attending Note
<Gillian Beaulieu PA-C - Last Filed: 06/12/25 09:20>
-
Portions of this chart may have been created with voice recognition software.� Occasional wrong word or��sound alike� substitutions may have occurred due to the inherent limitations of voice recognition software.
<Joe Arteaga MD - Last Filed: 06/12/25 16:11>
ED Attending Note
Patient seen and examined by attending physician: Yes
ED Attending Note:
Pt with history of chronic alcoholism, presents to ED with concern for alcohol withdrawal, with last use of alcohol yesterday afternoon. In addition, pt reports foul smelling urine and dysuria, along with intermittent episodes of vomiting. Pt
reports feeling tremulous. Denies suicidal ideation. Denies fever/chills. Denies cp/sob. Denies diarrhea. Denies recent travel. Denies sick contact
Physical Exam
General: mild distress, not acutely ill. afebrile
Head: nc/at. eomi
Neck: supple. no meningeal signs.
Heart: s1/s2 regular rate and rhythm
Lungs: no acute respiratory distress. clear bilaterally
Abdomen: normal bowel sounds. not tender.
Neuro: alert and oriented x 3. no focal neurological deficits
Skin: no rash
Psychiatric: well kept. interactive and cooperative
Extremities: no edema. no calf tenderness.
History/exam concerning for potential development of DTs, along with UTI. Will admit for continual symptomatic tx, including iv abx along with IVFs
Discharge Plan
Departure
Patient Disposition: Admit
Date of Disposition: 06/12/25
Time of Disposition: 08:41
Admit to: Telemetry
Presentation/result/management discussed w/ accepting MD/DO: Hospitalist
Condition: Fair
Covid-19: Not Applicable
Discharge Problem:
UTI (urinary tract infection), Vomiting, Alcoholism
Interventions
Interventions:
*Risk Screen - Suicide Last Done: 06/12/25 06:33
*General Assessment Last Done: 06/12/25 07:16
*Neglect/Abuse Screening Last Done: 06/12/25 09:00
*ED- Fall Risk Assessment Last Done: 06/12/25 07:16
*ED COVID-19 Vaccine History Last Done: 06/12/25 07:16
*ED Influenza Vaccine History Last Done: 06/12/25 07:16
*Nursing Disposition Last Done: 06/12/25 15:28
ED- Neurological Assessment Last Done: 06/12/25 07:16
ED-Psychological Assessment Last Done: 06/12/25 07:16
Discharge Date and Time
Discharge Date/Time: 06/12/25 15:28
[2025-06-12] MEDS: ROCEPHIN 2000 MG IV (09:20)
[2025-06-12] MEDS: THIAMINE INJECTION 200 MG IV (09:20)
[2025-06-12] MEDS: NICODERM TRANSDERMAL 21 MG TRANSDERM (11:08)
[2025-06-12] MEDS: TYLENOL 650 MG PO (11:08)
--- NOTE | 2025-06-12 11:08 | HPS.HSE ---
Addendum entered and electronically signed by Jm Brown MD 06/12/25 16:09:
Total time spent to see the patient on the floor, examine the patient, review data and lab results, discuss treatment plan with patient, nursing staff around 78 minutes.
Addendum entered and electronically signed by Jm Brown MD 06/12/25 15:59:
64-year-old male with a past medical history of known alcohol abuse, hypertension, and prostate cancer presents with dysuria, and dry heaving.
Urine analysis consistent with acute urinary tract infection. Patient continues to drink, his last drink was 06/11/25 at 5pm.
Will treat for acute urinary tract infection with IV Rocephin, follow-up on cultures.
Will monitor for alcohol withdrawal with MSAS protocol, treat with Ativan as needed, phenobarbital scheduled.
Consult psychiatry for anxiety/depression.
Patient is hypertensive currently, he did not take his blood pressure medications yesterday or today.
Will resume his home nifedipine. He takes 30 mg daily at home.
Unclear why he is also on amlodipine, since both are calcium channel blockers.
Will discontinue amlodipine 5 mg daily.
Increase nifedipine to 30 mg twice a day, add clonidine 0.1 mg 3 times daily.
I have personally seen and examined the patient, and agree with the plan of care as documented by Micheline Archer MD.
Advance care planning discussed, patient is a DNR.
All other issues as outlined by the resident physician.
Original Note:
Family Physician
-
Family Physician: * NONE
Chief Complaint
-
Dysuria
History of Present Illness
64-year-old male presented to the ER reporting foul-smelling urine and dysuria since the past 1 week. He has a past medical history of essential hypertension, IDDM, alcoholic pancreatitis, alcohol abuse, prostate cancer s/p radiation/hormone
therapy at [facility].
His urinary symptoms started 1 week ago, not associated with any fever/chills, suprapubic pain, back pain, hematuria. Patient has been having urinary incontinence intermittently for the past few years and has been using diapers. No history of
SGLT2 use.
Patient admits that he is a chronic alcoholic, drinks 4-5 beers per day, and he has been at rehabilitation centers before, was clean for few months and restarted again. At present he does not want any counseling, or does not want to quit either.
Patient reports having some nausea, but no vomiting. He ate his breakfast and was able to keep it down. No tremors, palpitations, sweating, visual/auditory hallucinations, no thoughts of harming himself.
Medical History
Past Medical History
Past Medical History: Reports HTN and IDDM
Additional Past Medical History:
Alcoholic pancreatitis, chronic alcohol use, prostate cancer�s/p radiation/hormone therapy at [facility]
Past Surgical History: Reports None
Social History
Tobacco: Smoker
Alcohol: Chronic Alcoholic
Drug: None
Personal: Single
Living: Alone
Family History
Family History: Other (Father -alcohol abuse)
Allergies / Home Medications
Allergies reflects when Allergies were last updated in [facility].
Home Medications with original date entered in [facility]
Allergy/Medication List:
Allergies
Allergy/AdvReac Type Severity Reaction Status Date / Time
lisinopril Allergy facial Verified 06/12/25 06:31
swelling
Home Medications
insulin glargine U-300 conc 300 unit/mL (1.5 mL) subcutaneous pen (Toujeo SoloStar U-300 Insulin) 40 unit SC DAILY Diabetes 09/22/16
tamsulosin 0.4 mg capsule 0.4 mg PO BID Urinary Issue 09/15/21
amlodipine 5 mg tablet 5 mg PO DAILY 06/12/25
nifedipine 30 mg tablet,extended release 24 hr 30 mg PO DAILY 06/12/25
Review of Systems
-
A 12 point ROS was completed and negative except as noted: Yes
Physical Exam
Vital Signs
Vital Signs
Temp Pulse Resp BP Pulse Ox
98.1 F 76 15 186/95 97
06/12/25 06:33 06/12/25 08:30 06/12/25 08:30 06/12/25 08:00 06/12/25 08:30
Physical Exam
General: No Apparent Distress
HEENT: NormoCephalic
Respiratory: Clear
Cardiac: S1/S2 and Regular Rhythm
GI: Soft, Non Tender, Non Distended and Normal Bowel Sounds
Genito-urinary: No costovertebral tender and Other (No suprapubic tenderness)
Skin: Warm and Dry
Neuro: Awake, Alert, Oriented, AO x 3 and Nonfocal/grossly intact; No Tremors
Psych: Calm
Laboratory Results
-
06/12/25 07:28
06/12/25 07:28
Laboratory Results
Total Bilirubin 0.6 mg/dl (0.2-1.3) 06/12/25 07:28
AST 30 U/L (17-59) 06/12/25 07:28
ALT 20 U/L (0-50) 06/12/25 07:28
Alkaline Phosphatase 83 U/L (38-126) 06/12/25 07:28
Lipase 16 U/L (23-300) L 06/12/25 07:28
Data Reviewed
-
Lab Data: Labs Reviewed by me
Impression/Plan
-
IMPRESSION
64-year-old male presented to the ER with dysuria and foul-smelling urine. Urinalysis with evidence of UTI.
Assessment/plan
#Urinary tract infection
Urinalysis with evidence of UTI
Urine cultures pending
Patient is afebrile, stable vitals, does not appear septic
Will start IV ceftriaxone 1 g, daily.
#Chronic alcohol abuse
Blood alcohol�174, urine drug screen�negative
Patient does not appear to be in withdrawal
His blood pressure is elevated, patient states that he has not taken his blood pressure medication since yesterday.
Patient does not want any [facility] services.
Will start IV thiamine, IV folate.
Patient has been eating well, will hold off on IV fluids.
Continue M yaa protocol
#Elevated blood pressure reading/hypertensive urgency
His blood pressure is elevated, patient states that he has not taken his blood pressure medication since yesterday.
Will resume his home blood pressure medications�amlodipine, nifedipine
Hydralazine as needed
#Insulin-dependent diabetes mellitus
Recent HbA1c�8
Will continue his home insulin Toujeo 40 units SC
Will add SSI
#Chronic smoker
Smokes 2 packs a day
Will do nicotine patch
#History of prostate cancer
S/p radiation/hormone therapy
Continue tamsulosin
#DVT prophylaxis
Lovenox subcu
CODE STATUS�DNR
[2025-06-12 11:13] VITALS: BP 172/102
[2025-06-12] MEDS: PROCARDIA XL (EXTENDED RELEASE) 30 MG PO ×2 (12:37→20:08)
--- NOTE | 2025-06-12 12:37 | EDCM ---
CM reviewed chart and met with pt bedside in ED. Pt lives alone in mobile home, [address].
Pt told me his mother is in [facility]Note 3], has not lived with him in years.
Independent in ADLs, personal care, and ambulation at baseline. No assistive devices. Sillt works driving cars.
Confirms prescription coverage.
PETTY reviewed and signed, pt declined copy.
Discussed [facility], ED notified them, Pt states he is willing to talk to them but believes he 'will be OK without them', told me he knows what to do to stop drinking but doesn't want to.
Does not have PCP, has been [facility].
[facility]acy: [facility]
Anticipate discharge home, CM will continue to follow for any discharge planning needs.
[2025-06-12 12:41] LABS: Glucose - Point of Care 110 mg/dl (70-99)
--- NOTE | 2025-06-12 14:11 | CS.PSYCHR ---
Consult Summary - Psychiatry
-
pt seen in consultation for concern for depression/anxiety he has been self-medicating with alcohol.
64 yo man known to psychiatry service here, brought self in for urinary tract symptoms. Is being admitted to obs for treatment of UTI. Well known alcohol use disorder in context of multiple chronic life stressor, chiefly poverty, estrangement from
family, 'angry at everyone'. 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 Mother in rehab, has ten brothers and sisters who don't really speak with him 'can't blame them.'
HS grad, attended [employer]. Had 4 year relationship but broke up. Has been drinking heavily for at least 35 years, has had a couple of detox stints, leaves early. Had outpatient care at [facility], liked it there.
Acknowledges occasional passive with to but denies suicide plan or intent.
Sleeps, wakes up and drinks, goes back to sleep, repeats throughout day.
Would like to say he is committed to sobriety but tired of failing.
Complains of problems with dental care.
Believes his health insurance limits what he can do for treatment.
Mental status: w/d w/n white male tremulous, self-deprecating. No signs of psychosis, no cognitive deficits. Depressed mood and affect. Insight and judgment fair.
Impression: Alcohol use disorder, severe. currently mild alcohol withdrawal
Dysthymia.
Would put on detox protocol, consult [facility] to help with detox/rehab placement. Once through detox will consider use of antidepressant
[2025-06-12] MEDS: ROXICODONE 5 MG PO (14:20)
[2025-06-12 15:36] VITALS: BMI 26.4
[2025-06-12 16:06] VITALS: BP 159/82
[2025-06-12 16:37] VITALS: BP 142/85; PULSE 85
[2025-06-12] MEDS: ATIVAN 1 MG PO (16:42)
[2025-06-12] MEDS: CATAPRES 0.1 MG PO (16:42)
[2025-06-12] MEDS: LUMINAL 97.2 MG PO ×2 (16:42→21:44)
[2025-06-12 16:50] LABS: Glucose - Point of Care 261 mg/dl (70-99)
[2025-06-12] MEDS: NOVOLOG FLEXPEN-LOW RESISTANCE 3 UNITS SC (16:51)
[2025-06-12] MEDS: FOLVITE PO (18:15)
[2025-06-12] MEDS: FLOMAX 0.4 MG PO (20:08)
[2025-06-12] MEDS: ATIVAN 1 MG IV (20:41)
[2025-06-12] MEDS: NSS (PRESERVATIVE FREE) 0.5 ML IV (20:42)
[2025-06-12 21:25] LABS: Glucose - Point of Care 238 mg/dl (70-99)
[2025-06-12] MEDS: CATAPRES PO (21:47)
[2025-06-12] MEDS: LANTUS 0.1 UNITS SC (21:48)
[2025-06-12 23:20] VITALS: BP 149/86
--- NOTE | 2025-06-13 02:30 | DOWNTIME ---
There was a [employer] Downtime on 06/13/2025 from 0100 to 06/13/2025 at 0215. Downtime documentation of patient's care, including medication administrations, has been reconciled in the electronic record per guidelines. Refer to the
patient's paper chart under the miscellaneous tab to see printed paper medication records and downtime forms.
[2025-06-13] MEDS: ATIVAN 1 MG IV (02:40)
[2025-06-13] MEDS: NSS (PRESERVATIVE FREE) 0.5 ML IV (02:41)
[2025-06-13 06:06] LABS: Hematocrit 38.6 % (39.0-52.0); Hemoglobin 13.4 g/dL (13.0-18.0); Mean Corp Hgb Conc. 34.7 g/dL (33.0-37.0); Mean Corpuscular Volume 92.3 fL (80.0-94.0); Platelet Count 143 10^3/uL (130-400); Red Cell Dist. Width 13.2 % (11.5-14.5)
[2025-06-13 07:00] VITALS: BP 148/89
[2025-06-13 07:31] LABS: Glucose - Point of Care 138 mg/dl (70-99)
[2025-06-13] MEDS: NOVOLOG FLEXPEN-LOW RESISTANCE SC (08:30)
[2025-06-13] MEDS: PROCARDIA XL (EXTENDED RELEASE) 30 MG PO ×2 (08:31→20:24)
[2025-06-13] MEDS: FLOMAX 0.4 MG PO ×2 (08:31→20:23)
[2025-06-13] MEDS: LUMINAL 97.2 MG PO ×3 (08:31→22:30)
[2025-06-13] MEDS: CATAPRES 0.1 MG PO ×2 (08:31→16:55)
[2025-06-13] MEDS: FOLVITE 1 MG PO (08:32)
[2025-06-13] MEDS: THIAMINE INJECTION 200 MG IV (08:32)
[2025-06-13] MEDS: NICODERM TRANSDERMAL 21 MG TRANSDERM (08:35)
[2025-06-13 08:39] LABS: Glycohemoglobin (HgbA1c) 8.1 % (4.0-5.6)
[2025-06-13] MEDS: ROCEPHIN 1000 MG IV (08:43)
[2025-06-13] MEDS: STERILE WATER FOR INJECTION 10 ML IV (08:43)
--- NOTE | 2025-06-13 09:14 | W.PN.HOSP.TC ---
Today's Communication/Plan
-
see bold
Assessment / Plan
Assessment / Plan
HPI: 64-year-old male with a past medical history of known alcohol abuse, hypertension, and prostate cancer presents with dysuria, and dry heaving.
Urine analysis consistent with acute urinary tract infection. Patient continues to drink, his last drink was 06/11/25 at 5pm.
Assessment/plan:
#Acute urinary tract infection
#Dysuria
Continue IV Rocephin day 2, urine cultures growing greater than 100,000 colonies of E. coli, follow-up on sensitivities
Trial of Pyridium
#Alcohol abuse with dependency
Last drink was 06/12 at 5 PM
Appreciate psychiatry input, patient requesting alcohol rehab
Continue MSAS protocol, phenobarbital taper
#Hypertensive urgency
He did not take his blood pressure medications for few days prior to arrival
He takes nifedipine 30 mg daily and amlodipine 5 mg daily at home
Unclear why he is also on amlodipine, since both are calcium channel blockers
Increase nifedipine to 30 mg twice a day, add clonidine 0.1 mg 3 times daily
#Diabetes
Hemoglobin A1c 8.1
Adjust insulin
#History of prostate cancer
#Urinary incontinence
S/p radiation/hormone therapy
Continue tamsulosin, follow-up with his usual urologist outpatient
DVT prophylaxis�subcu Lovenox
DNR
Total time spent to see the patient on the floor, examine the patient, review data and lab results, discuss treatment plan with patient, nursing staff around 50 minutes.
Physical Exam
General: No acute distress
HEENT: Normocephalic, Atraumatic, EOMI, MMM
Respiratory: Clear to Auscultation bilaterally
Cardiac: Normal S1/S2, Regular Rate and Rhythm
GI: Soft, Nontender, Nondistended, Normal Bowel Sounds
Extremities: No Clubbing, Cyanosis, or Edema
Neuro: Nonfocal/Grossly Intact, no hand tremors
Psych: Intermittently agitated
Anticipated Discharge: 24 - 48 hours
Subjective/Interval History
-
Date of Service: June 13, 2025
Patient reports his dysuria is the same as admission. He continues to complain of urinary incontinence, urgency as well. Denies chest pain, denies shortness of breath. No fever, no vomiting.
Objective Data
-
Labs:
Laboratory Results
06/13/25
05:43
WBC 6.7
Hgb 13.4
Hct 38.6 L
Plt Count 143 D
Vital Signs:
Vital Signs
Temp Pulse Resp BP Pulse Ox
98.1 F 90 17 148/89 95
06/13/25 07:00 06/13/25 07:00 06/13/25 07:00 06/13/25 08:31 06/13/25 07:00
I&O
06/12/25 06/13/25 06/14/25
06:59 06:59 06:59
Intake Total 120 / 120
Balance 120 / 120
[2025-06-13 09:52] LABS: Magnesium 1.6 mg/dl (1.6-2.3)
[2025-06-13] MEDS: ATIVAN 1 MG PO ×2 (11:15→19:39)
[2025-06-13 12:10] LABS: Glucose - Point of Care 318 mg/dl (70-99)
[2025-06-13] MEDS: NOVOLOG FLEXPEN-LOW RESISTANCE 4 UNITS SC ×2 (12:57→17:45)
[2025-06-13 15:00] VITALS: BP 127/83
--- NOTE | 2025-06-13 16:10 | CM ---
CM met with Wilfredo to discuss ETOH rehab/resources. Wilfredo does not like AA or other agencies like AA, as he feels they allow too many outsiders in, he does not trust the people. Wilfredo has spoke with Stephan and Gisel at [facility], but has not
found anything that he feels is helpful. His speech was disorganized and it was difficult to follow his thought processes.
I offered to provide him with information about services that he could pursue, however he told me that he was going to be leaving for home shortly, and he would be in touch with Kaya for support as needed.
Plan: Discharge to home with no needs per patient.
[2025-06-13 16:52] LABS: Glucose - Point of Care 346 mg/dl (70-99)
[2025-06-13] MEDS: NOVOLOG FLEXPEN 4 UNITS SC (17:45)
--- NOTE | 2025-06-13 17:53 | PTCARENOTE ---
pt continues to complain of urinary urgency, incontinency, frequency but less pain after stated on Pyridium as discussed with Dr. Brown during am rounds. urine is orange color at present. pt uncooperative most of the day with calling dietary and
asking staff repeatedly for food and even called down to gift shop and purchased candy and snacks and had them deliver it to his room, despite him being told risk associated and elevated blood sugar levels throughout the day. medicated with PRN
Ativan with some relief. MSAS score continues to be 2. vss, will continue to monitor.
[2025-06-13 19:30] LABS: Glucose - Point of Care 109 mg/dl (70-99)
--- NOTE | 2025-06-13 19:35 | W.PN.UPDATE ---
Update Note
Progress Note Update
pt seen for assessment of withdrawal management. Found walking in green dressed, with staff trying to redirect him to his room. fortunately he returned to his room with me, and even agreed to change into hospital gowns and take off shoes. (Says he
had not wanted gowns because they are not comfortable, and that the hospital does not provide underwear or Depends, which he needs due to occ incontinence.) States he is feeling better, hoping to be able to get onto naltrexone oral and do outpatient
rehab. I spent some time trying to convince him of need for inpatient rehab, but he is concerned about being limited ot [facility] or [facility] due to his medical needs (true) and he has had bad experiences at both. Doing ok with his withdrawal,
less tremulous today.
[2025-06-13 20:23] VITALS: BP 123/75
[2025-06-13] MEDS: MELATONIN 5 MG PO (20:23)
[2025-06-13 20:59] LABS: Glucose - Point of Care 146 mg/dl (70-99)
[2025-06-13] MEDS: CATAPRES PO (22:29)
[2025-06-13] MEDS: LANTUS 0.1 UNITS SC (22:30)
[2025-06-13 23:00] VITALS: BP 120/67
[2025-06-14] MEDS: ATIVAN 1 MG PO (03:59)
[2025-06-14 07:00] VITALS: BP 138/89
[2025-06-14 08:00] LABS: Glucose - Point of Care 122 mg/dl (70-99)
[2025-06-14] MEDS: NICODERM TRANSDERMAL 21 MG TRANSDERM (08:00)
[2025-06-14] MEDS: CATAPRES 0.1 MG PO (08:04)
[2025-06-14] MEDS: PROCARDIA XL (EXTENDED RELEASE) 30 MG PO (08:04)
[2025-06-14] MEDS: THIAMINE INJECTION 200 MG IV (08:05)
[2025-06-14] MEDS: FOLVITE 1 MG PO (08:05)
[2025-06-14] MEDS: FLOMAX 0.4 MG PO (08:05)
[2025-06-14] MEDS: NOVOLOG FLEXPEN-LOW RESISTANCE SC (08:06)
[2025-06-14] MEDS: STERILE WATER FOR INJECTION 10 ML IV (08:06)
[2025-06-14] MEDS: ROCEPHIN 1000 MG IV (08:06)
[2025-06-14] MEDS: NOVOLOG FLEXPEN SC (08:14)
[2025-06-14] MEDS: LUMINAL 97.2 MG PO (08:20)
--- NOTE | 2025-06-14 09:07 | W.PN.HOSP.TC ---
Today's Communication/Plan
-
Discharge today
Assessment / Plan
Assessment / Plan
HPI: 64-year-old male with a past medical history of known alcohol abuse, hypertension, and prostate cancer presents with dysuria, and dry heaving.
Urine analysis consistent with acute urinary tract infection. Patient continues to drink, his last drink was 06/11/25 at 5pm.
Assessment/plan:
#Acute urinary tract infection
#Dysuria
Urine cultures growing 100,000 colonies of E. coli, sensitive to Rocephin
He has received 3 days of Rocephin, will discharge on cefdinir to complete a 7-day course
Recommends that he establishes care with the residency clinic, for follow-up with PCP
#Alcohol abuse with dependency
Last drink was 06/12 at 5 PM
Appreciate psychiatry input, patient now wants to do intense outpatient program
He is not in any withdrawal secondary to phenobarbital taper
Will discharge on phenobarbital taper
Patient counseled to not drink while taking phenobarbital, as this can cause
#Hypertensive urgency
He did not take his blood pressure medications for few days prior to arrival
He takes nifedipine 30 mg daily and amlodipine 5 mg daily at home
Unclear why he is also on amlodipine, since both are calcium channel blockers
Discontinued amlodipine
Increased nifedipine to 30 mg twice a day -which he can continue upon discharge
#Diabetes
Hemoglobin A1c 8.1
Patient is hyperglycemic because he is sneaking treats from the gift shop
He can resume his higher dose of insulin upon discharge
#History of prostate cancer
#Urinary incontinence
S/p radiation/hormone therapy
Continue tamsulosin, follow-up with his usual urologist outpatient
DVT prophylaxis�subcu Lovenox
DNR
Physical Exam
General: No acute distress
HEENT: Normocephalic, Atraumatic, EOMI, MMM
Respiratory: Clear to Auscultation bilaterally
Cardiac: Normal S1/S2, Regular Rate and Rhythm
GI: Soft, Nontender, Nondistended, Normal Bowel Sounds
Extremities: No Clubbing, Cyanosis, or Edema
Neuro: Nonfocal/Grossly Intact, no hand tremors
Psych: Intermittently agitated
Anticipated Discharge: Today
Subjective/Interval History
-
Date of Service: June 14, 2025
Patient is very agitated. He has been snacking on sweets from the gift shop. Continues to have dysuria, improved from admission. Denies chest pain, denies shortness of breath. No fever, no vomiting.
Objective Data
-
Vital Signs:
Vital Signs
Temp Pulse Resp BP Pulse Ox
98.0 F 84 18 138/89 99
06/14/25 07:00 06/14/25 08:04 06/14/25 07:00 06/14/25 08:04 06/14/25 07:00
I&O
06/13/25 06/14/25 06/15/25
06:59 06:59 06:59
Intake Total 120 / 120 1200 / 1200
Balance 120 / 120 1200 / 1200
--- NOTE | 2025-06-14 09:34 | PTCARENOTE ---
RN went to administer pt's morning medications. Pt ill-manored and disrespectful to staff. Pt requested Valium and stated other nurses stated that he has Valium ordered. RN informed pt that Valium is not ordered, however does have an order for
Ativan as needed. Pt stated 'Okay, can I get that through the IV? It works better that way'. Per Ativan IV orders, pt must meet a certain MSAS score. RN performed MSAS assessment, to which pt scored a 1. RN informed pt that they did not score high
enough for IV Ativan, but can give oral. Pt stated 'What do I have to score to get IV?' RN replied 'higher than what you did score'. Pt then replied 'Well, I AM having hallucinations now.' RN informed pt that even with hallucinations, that he still
would not score high enough. Pt then stated 'Do you have something that could get me high? Any strong pain medications?' RN replied 'We are not looking to get you high, but are you having pain?' Pt reported 'yes'. When RN asked pt location of pain,
pt replied 'Don't you people read the notes? It's all in there'. RN unable to perform pain assessment. Pt repeatedly asking to 'get high'. Pt also constantly standing up without assistance even though pt has fall hx with a bed alarm. PT has been
repeatedly reminded to call for assistance as pt is a fall risk, to which pt replied 'No i'm not. I won't fall'. Pt also repeatedly asking staff for snacks, as well as ordered snacked from the gift shop to be sent up since kitchen will not send up
snacks due to diet order, even though pt is on a diabetic diet. Pt states 'I am NOT a diabetic and you people are making things up!'
--- NOTE | 2025-06-14 10:35 | W.PN.UPDATE ---
Update Note
Progress Note Update
patient seen chart reviewed. discussed with nursing and dr soto patient initially warned me 'if i just wanted to talk about etoh.....' he suggested i leave. so....we diverged into a number of other subjects and eventually worked out way back to
etoh. he told me a lot about his life, his job, his medical issues, his family....some of the issues which related to his etoh he was able to acknowledge eg the dysfunctionality of his pancreas as a likely cause of his diarrhea ( he thinks at some
point he was rx w pancreatic enzymes). he spoke of his diabetes (he ordered sugary products from the gift shop dietary told him he could not have them. nursing earmarked them to be presented at [facility]. all the while i was talking to him he was
eating the jelly from a little packet with the wrapper from his tea bag rolled up. when he finished the jelly which he assured me was sugar free he started on the butter packet. he asked about naloxone which i have no issue prescribing but he can't
be on opiates which i wi'ed. he was asking nursing earlier today for pain meds and iv bzp (he appears truly in no distress and his vital signs do not indicate a pained or wd state). he says he would go to [facility] but his insurance won't cover it. asked
ms davis to check in with him which she did in my presence. also he was asking PT to work with him and coincidentally PT showed up right after i saw him. he says he will attend AA. my plan would be [facility], AA get a sponsor and he can try naltrexone.
he also asked about vivitrol. he will have to get a prior auth for this as an out pt.
[2025-06-14 10:37] VITALS: BP 116/74; PULSE 82
[2025-06-14 11:38] LABS: Urine Character Clear (Clear)
[2025-06-14 11:58] LABS: Glucose - Point of Care 338 mg/dl (70-99)
[2025-06-14 12:01] LABS: Urine White Cell 30-40 /HPF (0-5)
[2025-06-14] MEDS: NOVOLOG FLEXPEN-LOW RESISTANCE 5 UNITS SC (13:14)
[2025-06-14 13:15] LABS: Glucose - Point of Care 391 mg/dl (70-99)
[2025-06-14] MEDS: NOVOLOG FLEXPEN 4 UNITS SC (13:16)
--- NOTE | 2025-06-14 13:40 | W.DCSUMMARY ---
Discharge Summary
Discharge Data
Date of Admission: 06/12/25
Date of Discharge: 06/14/25
-
Pending Results: No
Hospital Course
Discharge diagnosis:
Acute urinary tract infection
Dysuria
Urinary frequency/urgency/incontinence
Alcohol abuse with dependency
Cigarette nicotine dependency
Hypertensive urgency
Noncompliance
Diabetes
History of prostate cancer status post radiation and hormone therapy
Consults: Psychiatry
Hospital course:
64-year-old male with with a past medical history of alcohol abuse and dependency, cigarette nicotine dependency, hypertension, diabetes, and prostate cancer status post radiation and hormone therapy was admitted for an acute urinary tract
infection. He was treated with IV Rocephin. Urine cultures grew out E. coli, sensitive to Rocephin. He will be discharged on cefdinir to complete a 7-day course.
Patient had hypertensive urgency in the ER, likely secondary to missing his blood pressure medications. He is on amlodipine 5 mg daily and nifedipine 30 mg daily. Unclear why he is on 2 calcium channel blockers. Amlodipine was discontinued.
Nifedipine was increased to 30 mg twice a day, which he can continue upon discharge.
Patient was seen in conjunction with psychiatry. He did express interest in inpatient alcohol rehab initially, then changed his mind. He decided that he would rather go to [facility], and asked to be started on naltrexone. He was monitored for
withdrawal, and received phenobarbital taper while in the hospital. He will be discharged on a short phenobarbital taper, as well as naltrexone 50 mg at bedtime. He has been counseled to permanently abstain from drinking alcohol. He has also been
counseled to not drink alcohol while taking phenobarbital, as this can cause .
Patient has diabetes, and has extremely erratic blood sugars secondary to snacking on sweets from the gift shop. He is noncompliant with his diet. He was treated with insulin while in the hospital, and can resume his previous home insulin dose
upon discharge.
Disposition: Home self-care
Discharge planning: Required 40 minutes
Discharge Plan
-
Patient Disposition: Home (Routine Discharge)
Discharge Diagnosis/Procedures: Acute urinary tract infection, alcohol abuse, cigarette nicotine abuse
Condition: Good
Diet: Diabetic, Carb Controlled
Activity: As tolerated
Driving Restrictions: As prior to admission
Activity Restrictions/Additional Instructions:
It is recommended that you permanently abstain from drinking alcohol.
Please attend AA meetings, intensive outpatient program, and get a sponsor.
You have been prescribed a phenobarbital taper for withdrawal.
Please do not drink any alcohol when you are taking phenobarbital, it can cause .
Your blood sugar in the hospital was high.
Please limit your sweet intake, and take your insulin as directed.
Please establish care and follow-up with a primary care doctor soon as possible.
Referrals:
NONE,* [Family Provider, Internal Medicine]
Lilibeth Vance MD, Resident [Family Practice Resident Year3, General] - in one to two weeks
Prescriptions:
New
nicotine 21 mg/24 hr Patch 24 Hour
21 mg transdermal DAILY Qty: 30 0RF
phenobarbital 32.4 mg Tablet
See Rx Instructions .ROUTE .COMPLEX Qty: 12 0RF
Rx Instructions:
Take 2 tabs BID for 2 days, then 1 tab po BID x 2 days, then stop
cefdinir 300 mg capsule
300 mg PO BID 5 Days Qty: 10 0RF
naltrexone 50 mg Tablet
50 mg PO HS Qty: 30 0RF
Continued
insulin glargine U-300 conc [[employer] SoloStar U-300 Insulin] 300 UNIT/ML insulin pen
40 unit SC DAILY
tamsulosin 0.4 MG capsule
0.4 mg PO BID
Changed
nifedipine 30 mg tablet extended release 24hr
30 mg PO BID Qty: 60 0RF
Discontinued
amlodipine 5 mg tablet
5 mg PO DAILY
Discharge Orders:
Discharge Patient (As Directed); Ordered 06/14/25
Ordered By: Jm Brown
Discharge Date and Time
Discharge Date/Time: 06/14/25 14:40
Print Language: ROMANIAN
[2025-06-14 13:57] VITALS: BP 127/52
--- NOTE | 2025-06-14 13:59 | CM ---
Pt is cleared for discharge to home today. Pt spoke with Dr. Lewis and agreed to go to AA; does not want to go to IOP, claiming that his insurance will not cover IOP which is not accurate.
Plan: Discharge to home today; pt asked for Rx for naltrexone.
[2025-06-14] MEDS: LUMINAL 64.8 MG PO (14:16)
== END 2025-06-14 14:40 | disposition home or self-care (01) ==
LOC: 3 WEST ACU 11:17
PROVIDERS: Physician Assistant; Student in an Organized Health Care Education/Training Program; ADMITTING PHYSICIAN Family Medicine; CONSULT PHYSICIAN Psychiatry & Neurology Psychiatry; EMERGENCY PHYSICIAN Emergency Medicine
DX: N39.0 Urinary tract infection, site not specified (principal); F10.239 Alcohol dependence with withdrawal, unspecified; I10 Essential (primary) hypertension; I16.0 Hypertensive urgency; B96.20 Unspecified Escherichia coli [E. coli] as the cause of diseases classified elsewhere; Z79.899 Other long term (current) drug therapy; F17.210 Nicotine dependence, cigarettes, uncomplicated; Z85.46 Personal history of malignant neoplasm of prostate; Z66 Do not resuscitate; Z92.3 Personal history of irradiation; Z79.4 Long term (current) use of insulin; Z91.148 Patient's other noncompliance with medication regimen for other reason; E11.65 Type 2 diabetes mellitus with hyperglycemia; F34.1 Dysthymic disorder; N39.41 Urge incontinence
CPT/HCPCS: 80053; 80306; 81003; 81015; 82077; 82962; 83036; 83690; 83735; 85025; 85027; 87045; 87046; 87077; 87086; 87186; 87427; 89055; 93005; 96361; 96374; 96375; 96376; 97116; 97161; 99284; 99406; G0378

== ENCOUNTER 2025-07-02 17:36 | Emergency (ER) | payer MEDICARE, OTHER, SELFPAY ==
[2025-07-02 17:41] VITALS: BP 162/97
--- NOTE | 2025-07-02 18:28 | ED.GENMED ---
Addendum entered and electronically signed by Joe Arteaga MD 07/03/25 00:38:
ED attending note entered in error. Please disregard
Original Note:
History of Present Illness
<Shelli Bates NP - Last Filed: 07/02/25 22:12>
General
Chief Complaint: Alcohol Problem
Source: patient and ambulance crew
Exam Limitations: none
Time Seen by Provider: 07/02/25 18:07
Nursing documentation reviewed up to this point in time: agreed with
History of Present Illness
History of Present Illness:
Patient to the emergency department by EMS requesting inpatient care for alcohol abuse. He is a chronic alcoholic. He has been seen in the emergency department many times in the past for the same. He has been in rehab before and unfortunately
relapses after discharge. Today he states that his mother and that the is tomorrow. States he is drinking heavily due to the of his mother. He offers no other complaints. He is visibly intoxicated. He is unable to tell me how
much he drank today.
Past History
<Shelli Bates NP - Last Filed: 07/02/25 22:12>
Past History
ED Past Medical History: HTN, IDDM, Psychiatric and Other (Pancreatitis, alcoholism, GI bleeding, )
ED Past Surgical History: None
Social History
Tobacco: Smoker
Alcohol: Chronic alcoholic (15 Beers daily)
Drug: None
Personal: Partner
Living: with family
Review of Systems
<Shelli Bates NP - Last Filed: 07/02/25 22:12>
Review of Systems
Allergies reviewed?: Yes
All Other Systems: ROS reviewed and negative except as documented in HPI and ROS
Constitutional: Reports no symptoms
EENT: Reports no symptoms
Respiratory: Reports no symptoms
Cardiac: Reports no symptoms
ABD/GI: Reports no symptoms
: Reports no symptoms
Musculoskeletal: Reports no symptoms
Skin: Reports no symptoms
Neurological: Reports other (Intoxicated)
Psychiatric: Reports depression
Phy Exam
<Shelli Bates NP - Last Filed: 07/02/25 22:12>
General Physical Exam
General Presentation: no apparent distress
General Skin: warm and dry
General Mental: appears intoxicated
Musculoskeletal Exam
Musculoskeletal Exam: full ROM
Skin Exam
Skin Exam: normal color, warm/dry and no rash
Psychiatric Exam
Psychiatric Exam: agitated and other (Intoxicated)
Scores
<Shelli Bates NP - Last Filed: 07/02/25 22:12>
Withdrawal Assessment of Alcohol
Withdrawal Assessment Completed?: Yes
Nausea and Vomiting: No nausea and no vomiting
Tactile Disturbances: None
Tremor: No tremor
Auditory Disturbances: Not present
Paroxysmal Sweats: No sweat visible
Visual Disturbances: Not present
Anxiety: Moderately anxious, or guarded, so anxiety is inferred
Headache, Fullness in Head: Not present
Agitation: Normal activity
Orientation and clouding of sensorium: Cannot do serial additions or is uncertain about date (Visibly intoxicated)
Total CIWA Score: 5
Alcohol Withdrawal Medication Recommendation: Equal to MSAS Score 0-4. Monitor & re-assess q2hrs, NO MEDICATION NEEDED
<Joe Arteaga MD - Last Filed: 07/03/25 00:32>
Withdrawal Assessment of Alcohol
Total CIWA Score: 5
Alcohol Withdrawal Medication Recommendation: Equal to MSAS Score 0-4. Monitor & re-assess q2hrs, NO MEDICATION NEEDED
Course
<Shelli Bates NP - Last Filed: 07/02/25 22:12>
Orders/Labs/Results
Orders:
Orders
07/02/25 18:41
0.9% Sodium Chloride 1000 ml [Nss] 1,000 ml IV BOLUS
07/02/25 20:09
Complete Blood Count/With Diff Urgent
Comprehensive Metabolic Panel Urgent
Abnormal Lab Results
07/02/25 07/02/25
18:38 20:09
MCH 33.0 H pg
(27.0-31.0)
MCHC 37.2 H g/dL
(33.0-37.0)
Absolute Monos (auto) 0.7 H 10^3/uL
(0.1-0.6)
Monocytes % 10.0 H %
(1.7-9.3)
Sodium 130 L mmol/L
(135-145)
Chloride 94 L mmol/L
(98-107)
Glucose 411 H mg/dl
(70-99)
AST 608 H* U/L
(17-59)
ALT 172 H U/L
(0-50)
Alkaline Phosphatase 131 H U/L
(38-126)
POC Glucose 432 H mg/dl
(70-99)
07/02/25 20:09
07/02/25 20:09
Vital Signs
Initial and Last Documented VS:
Initial Vital Signs
Temp Pulse Resp BP Pulse Ox
98.9 F 86 18 162/97 98
07/02/25 17:41 07/02/25 17:41 07/02/25 17:41 07/02/25 17:41 07/02/25 17:41
Last Documented Vital Signs
Temp Pulse Resp BP Pulse Ox
98.9 F 80 20 162/97 99
07/02/25 17:41 07/02/25 20:50 07/02/25 20:00 07/02/25 17:41 07/02/25 20:44
<Joe Arteaga MD - Last Filed: 07/03/25 00:32>
Orders/Labs/Results
Orders:
Orders
07/02/25 18:41
0.9% Sodium Chloride 1000 ml [Nss] 1,000 ml IV BOLUS
07/02/25 20:09
Complete Blood Count/With Diff Urgent
Comprehensive Metabolic Panel Urgent
Abnormal Lab Results
07/02/25 07/02/25
18:38 20:09
MCH 33.0 H pg
(27.0-31.0)
MCHC 37.2 H g/dL
(33.0-37.0)
Absolute Monos (auto) 0.7 H 10^3/uL
(0.1-0.6)
Monocytes % 10.0 H %
(1.7-9.3)
Sodium 130 L mmol/L
(135-145)
Chloride 94 L mmol/L
(98-107)
Glucose 411 H mg/dl
(70-99)
AST 608 H* U/L
(17-59)
ALT 172 H U/L
(0-50)
Alkaline Phosphatase 131 H U/L
(38-126)
POC Glucose 432 H mg/dl
(70-99)
07/02/25 20:09
07/02/25 20:09
Vital Signs
Initial and Last Documented VS:
Initial Vital Signs
Temp Pulse Resp BP Pulse Ox
98.9 F 86 18 162/97 98
07/02/25 17:41 07/02/25 17:41 07/02/25 17:41 07/02/25 17:41 07/02/25 17:41
Last Documented Vital Signs
Temp Pulse Resp BP Pulse Ox
98.9 F 80 20 162/97 99
07/02/25 17:41 07/02/25 20:50 07/02/25 20:00 07/02/25 17:41 07/02/25 20:44
<Shelli Bates NP - Last Filed: 07/02/25 22:12>
*Pulse Oximetry
SaO2: 98
Oxygen Mode of Delivery: Room air
Patient hypoxic: no
*Critical Care Note
Total Time (30-74mins, 75-104mins- exclusive of procedures): Not Applicable
<Shelli Bates NP - Last Filed: 07/02/25 22:12>
Update Note
Update Note:
Patient was brought to the ED by EMS at his request. Patient had told EMS that he was looking for admission to a rehab facility for his alcohol dependence. [facility] was notified and was in to speak with patient. He became verbally abusive to the
to the [facility], [employer] sales representative as well as the nursing staff. Demanding IV fluids and IV Demerol. Dr. Lowery was notified by nursing staff of patient's escalation and he went into speak with this patient. Patient continued with his verbally abusive
behavior. He requested to be discharged. He was then discharged home by Dr. Arteaga
ED Attending Note
<Shelli Bates NP - Last Filed: 07/02/25 22:12>
-
Portions of this chart may have been created with voice recognition software.� Occasional wrong word or��sound alike� substitutions may have occurred due to the inherent limitations of voice recognition software.
<Joe Arteaga MD - Last Filed: 07/03/25 00:32>
ED Attending Note
Patient seen and examined by attending physician: Yes
ED Attending Note:
Patient with history of CVA, confirmed on MRI over 10 years ago, without any residual deficit, presents to ED secondary to sudden onset of blurred vision, lasting 2 to 3 minutes at home, with spontaneous resolution. Denies headache. Denies
dizziness. Denies difficulty with speech. Denies loss of sensation or weakness. Denies difficulty with ambulation. Denies recent illness. Denies recent change in medications or diet. Denies previous history of similar symptoms. At the time of
evaluation ED, patient is without any symptoms and has no complaints.
Physical Exam
General: no apparent distress, not acutely ill. afebrile
Head: nc/at. eomi
Neck: supple. no meningeal signs.
Heart: s1/s2 regular rate and rhythm
Lungs: no acute respiratory distress. clear bilaterally
Abdomen: normal bowel sounds. not tender.
Neuro: alert and oriented x 3. no focal neurological deficits. normal speech
Skin: no rash
Psychiatric: well kept. interactive and cooperative
Extremities: no edema. no calf tenderness.
CT head report reviewed and discussed with patient and on-call neurologist, . recommends admission for further eval and treatment, including MRI brain. At this time, recommends starting patient on aspirin and Plavix.
Discharge Plan
Departure
Patient Disposition: Home (Routine Discharge)
Date of Disposition: 07/02/25
Time of Disposition: 22:10
Patient with high blood pressure during this ER visit?: No
Condition: Good
Covid-19: Not Applicable
Discharge Problem:
Alcohol abuse
Instructions: Alcohol Use Disorder (DC)
Prescriptions:
No Action
insulin glargine U-300 conc [Toujeo SoloStar U-300 Insulin] 300 UNIT/ML insulin pen
40 unit SC DAILY
tamsulosin 0.4 MG capsule
0.4 mg PO BID
nicotine 21 mg/24 hr Patch 24 Hour
21 mg transdermal DAILY Qty: 30 0RF
phenobarbital 32.4 mg Tablet
See Rx Instructions .ROUTE .COMPLEX Qty: 12 0RF
Rx Instructions:
Take 2 tabs BID for 2 days, then 1 tab po BID x 2 days, then stop
cefdinir 300 mg capsule
300 mg PO BID 5 Days Qty: 10 0RF
nifedipine 30 mg tablet extended release 24hr
30 mg PO BID Qty: 60 0RF
naltrexone 50 mg Tablet
50 mg PO HS Qty: 30 0RF
Referrals:
NONE,* [Family Provider, Internal Medicine]
Interventions
Interventions:
*Risk Screen - Suicide Last Done: 07/02/25 17:41
*General Assessment Last Done: 07/02/25 17:41
*Neglect/Abuse Screening Last Done: 07/02/25 17:41
*ED- Fall Risk Assessment Last Done: 07/02/25 20:50
*ED COVID-19 Vaccine History Last Done: 07/02/25 20:50
*ED Influenza Vaccine History Last Done: 07/02/25 20:50
*Nursing Disposition Last Done: 07/02/25 20:50
ED- Neurological Assessment Last Done: 07/02/25 18:27
ED-Psychological Assessment Last Done: 07/02/25 18:27
Discharge Date and Time
Discharge Date/Time: 07/02/25 20:10
Print Language: VIETNAMESE
[2025-07-02 18:40] LABS: Glucose - Point of Care 432 mg/dl (70-99)
[2025-07-02] MEDS: NSS 1000 IV (20:09)
[2025-07-02 20:33] LABS: Hematocrit 43.3 % (39.0-52.0); Hemoglobin 16.1 g/dL (13.0-18.0); Mean Corp Hgb Conc. 37.2 g/dL (33.0-37.0); Mean Corpuscular Volume 88.7 fL (80.0-94.0); Nucleated Red Blood Cells % 0 % (-); Platelet Count 282 10^3/uL (130-400); Red Cell Dist. Width 13.0 % (11.5-14.5)
[2025-07-02 20:46] LABS: ALT (SGPT) 172 U/L (0-50); AST (SGOT) 608 U/L (17-59); Albumin 4.0 g/dl (3.5-5.0); Alkaline Phosphatase 131 U/L (38-126); Blood Urea Nitrogen 19 mg/dl (9-20); Calcium 8.6 mg/dl (8.4-10.2); Carbon Dioxide 28 mmol/L (22-30); Chloride 94 mmol/L (98-107); Glucose 411 mg/dl (70-99); Potassium 4.9 mmol/L (3.5-5.1); Sodium 130 mmol/L (135-145); Total Protein 6.8 g/dl (6.3-8.2); eGFR > 60.00
--- NOTE | 2025-07-02 21:47 | PTCARENOTE ---
late note due to pt care:
Pt is argumentative with staff and cursing. RN explained plan of care and expectations of behavior. Pt would not speak with nurse or participate in care ( IV placement, sitting still for physical assessment,) until the pt was given IV Demerol. RN
explained treatment plan including fluids and lab draws. Pt continued to fight with staff and use foul langue ( ' you know how those icelandic are', 'that nurse is a fucking clown' , 'you all are fucking idiots'). Security called to the bedside
multiple times for aggressive and noncompliant behavior. BECAREs at beside multiple times. Pt eventually escorted out by security after DC. Pt AOx3, IV removed, pt stated he would be gettign an Uber ride (josue pulled up on phone at time of DC).
--- NOTE | 2025-07-03 00:38 | ED.ATTNOTE ---
ED Attending Note
ED Attending Note
Patient seen and examined by attending physician: Yes
ED Attending Note:
Patient with history of chronic alcoholism, presented to ED requesting help for his ongoing alcohol use and dependence. Denies suicidal or homicidal ideation. Denies nausea or vomiting. Patient reports drinking alcohol recently. Patient is also
complaining of generalized pain, for which he takes ibuprofen at home. Denies use of any other illicit medications.
Physical Exam
General: no apparent distress, not acutely ill. afebrile.
Head: nc/at. eomi
Neck: supple. normal range of motion
Heart: s1/s2 regular rate and rhythm
Lungs: no acute respiratory distress. clear bilaterally
Abdomen: normal bowel sounds. not tender.
Neuro: alert and oriented x 3. no focal neurological deficits. normal speech. normal gait.
Skin: no rash
Psychiatric: well kept but uncooperative and demanding
Extremities: no edema. no calf tenderness.
During the course of evaluation, patient continually demanding to receive Demerol IV for his chronic pain. Explained to patient on multiple occasions, Demerol IV is not indicated for his current condition, especially with alcohol on board. Patient
on multiple occasions becoming verbally abusive to ED staff and providers. Patient noted to come out of stretcher to the hallway, demanding to speak to nurses and provider. Asked on multiple occasion to return to his room and request to be
evaluated further. However, at that time, patient expressed his desire to be discharged, so that he can be evaluated another hospital. As such, decision made to allow patient to leave ED at his request. This was completed prior to blood test
result became available. Patient did understand that prior to leaving, that his evaluation had not been completed. Patient escorted out of ED by security, due to increased agitation and aggressive behavior and tone. Patient is noted to be alert,
awake, and clinically sober, and ambulating with steady gait, at time of discharge.
-
Portions of this chart may have been created with voice recognition software.� Occasional wrong word or��sound alike� substitutions may have occurred due to the inherent limitations of voice recognition software.
== END 2025-07-02 20:10 | disposition home or self-care (01) ==
LOC: EMR 17:36
PROVIDERS: Nurse Practitioner; EMERGENCY PHYSICIAN Emergency Medicine
DX: F10.20 Alcohol dependence, uncomplicated (principal); I10 Essential (primary) hypertension; E11.9 Type 2 diabetes mellitus without complications; F17.200 Nicotine dependence, unspecified, uncomplicated; Z63.4 Disappearance and death of family member; Z87.19 Personal history of other diseases of the digestive system
CPT/HCPCS: 99283; 96360; 80053; 82962; 85025

== ENCOUNTER 2025-08-14 21:24 | Inpatient (IN) | payer MEDICARE, OTHER, SELFPAY ==
[2025-08-14 15:04] VITALS: BP 170/127
[2025-08-14] MEDS: ATIVAN 1 MG IV (16:15)
[2025-08-14] MEDS: NSS 1000 IV ×3 (16:15→22:55)
[2025-08-14] MEDS: ZOFRAN 4 MG IV (16:15)
[2025-08-14 16:27] LABS: Hematocrit 45.0 % (39.0-52.0); Hemoglobin 16.7 g/dL (13.0-18.0); Mean Corp Hgb Conc. 37.1 g/dL (33.0-37.0); Mean Corpuscular Volume 87.7 fL (80.0-94.0); Nucleated Red Blood Cells % 0 % (-); Platelet Count 234 10^3/uL (130-400); Red Cell Dist. Width 13.3 % (11.5-14.5)
[2025-08-14 16:42] LABS: ALT (SGPT) 463 U/L (0-50); Albumin 4.1 g/dl (3.5-5.0); Alkaline Phosphatase 149 U/L (38-126); Blood Urea Nitrogen 22 mg/dl (9-20); Calcium 8.7 mg/dl (8.4-10.2); Carbon Dioxide 23 mmol/L (22-30); Chloride 96 mmol/L (98-107); Estimated Creatinine Clearance 69 ml/min; Glucose 390 mg/dl (70-99); Lipase 97 U/L (23-300); Potassium 4.3 mmol/L (3.5-5.1); Sodium 129 mmol/L (135-145); Total Protein 7.0 g/dl (6.3-8.2); eGFR > 60.00
[2025-08-14 16:47] LABS: COVID-19 Antigen Negative (Negative)
[2025-08-14 16:53] LABS: AST (SGOT) 1451 U/L (17-59)
[2025-08-14 17:16] LABS: Urine Character Clear (Clear)
[2025-08-14 17:22] LABS: Urine Squamous Cell 0-2 /LPF (Few)
[2025-08-14 17:24] LABS: Urine Red Blood Cell 0-2 /HPF (0-2); Urine White Cell 0-2 /HPF (0-5)
[2025-08-14] MEDS: NICODERM TRANSDERMAL 21 MG TRANSDERM (17:24)
[2025-08-14] MEDS: TORADOL 15 MG IV (17:37)
[2025-08-14 18:35] VITALS: BMI 24.0
--- NOTE | 2025-08-14 19:32 | ED.GENMED ---
History of Present Illness
<Jak Bess PA-C - Last Filed: 08/14/25 19:39>
General
Chief Complaint: Male Genito-Urinary Symptoms
Source: patient
Time Seen by Provider: 08/14/25 15:58
History of Present Illness
History of Present Illness:
64-year-old male presents for evaluation of abdominal pain and his alcohol use. He was initially seeking treatment detox facility today but they sent him here due to his abdominal pain. He came in slightly agitated disrespecting staff with
multiple complaints. He admits to his last drink being this morning. No fevers. No chest pain. The pain is mainly on the right side of his abdomen with associated occasional loose stools.
Past History
<Jak Bess PA-C - Last Filed: 08/14/25 19:39>
Past History
ED Past Medical History: HTN, IDDM, Psychiatric and Other (Pancreatitis, alcoholism, GI bleeding, )
ED Past Surgical History: None
Social History
Tobacco: Smoker
Alcohol: Chronic alcoholic (15 Beers daily)
Drug: None
Personal: Partner
Living: with family
Phy Exam
<Jak Bess PA-C - Last Filed: 08/14/25 19:39>
Physical Exam
Physical Exam:
General: Well-developed male no respiratory distress
HEENT: Normal cephalic atraumatic
Heart: Regular rate and rhythm
Lungs: Clear no wheeze
Abdomen is tender to the right abdomen extremities: No cyanosis
Sepsis
<WHITNEY Nation Last Filed: 08/14/25 19:39>
Sepsis Screening
Sepsis Assessment: Sepsis Ruled Out
Sepsis Screen
Sepsis Screen: Sepsis Ruled Out
Date: 08/14/25
Time: 19:39
<Maggie Elder DO - Last Filed: 08/14/25 20:40>
Sepsis Screen
Sepsis Screen: Sepsis Ruled Out
Date: 08/14/25
Time: 20:35
Course
<Jak Bess PA-C - Last Filed: 08/14/25 19:39>
Orders/Labs/Results
Orders:
Orders
08/14/25 16:03
0.9% Sodium Chloride 1000 ml [Nss] 1,000 ml IV BOLUS
Lorazepam [Ativan] 1 mg IV NOW STA
Ondansetron Injectable [Zofran] 4 mg IV NOW STA
08/14/25 16:04
CR Chest - 2 Views Urgent
Comment:
Reason For Exam: cough
08/14/25 16:11
Alcohol Urgent
COVID-19 Antigen Urgent
Source: Nasal Swab
Complete Blood Count/With Diff Urgent
Comprehensive Metabolic Panel Urgent
Lipase Urgent
Influenza A+B Rapid Molecular Urgent
TEJAL Source: Nasal Swab
Specimen Description:
08/14/25 16:58
CT Abd/pelvis W Iv Cont Urgent
Comment:
Reason For Exam: abdominal pain
08/14/25 17:07
Urinalysis Stat
Date Specimen was Collected: 08/14/25
Time Specimen was Collected: 17:01
Urine Microscopic Stat
Date Specimen was Collected: 08/14/25
Time Specimen was Collected: 17:01
08/14/25 17:17
Nicotine [Nicoderm Transdermal] 21 mg TRANSDERM NOW STA
08/14/25 17:34
Ketorolac [Toradol] 15 mg IV NOW STA
08/14/25 19:30
HYDROmorphone [Dilaudid] 0.5 mg IV NOW STA
08/14/25 19:31
0.9% Sodium Chloride 1000 ml [Nss] 1,000 ml IV BOLUS
Abnormal Lab Results
08/14/25 08/14/25
16:11 17:07
MCH 32.6 H pg
(27.0-31.0)
MCHC 37.1 H g/dL
(33.0-37.0)
Absolute Neuts (auto) 7.8 H 10^3/uL
(1.4-6.5)
Absolute Monos (auto) 0.7 H 10^3/uL
(0.1-0.6)
Neutrophils % 75.4 H %
(42.2-75.2)
Lymphocytes % 16.2 L %
(20.5-51.1)
Sodium 129 L mmol/L
(135-145)
Chloride 96 L mmol/L
(98-107)
BUN 22 H mg/dl
(9-20)
Glucose 390 H mg/dl
(70-99)
Total Bilirubin 1.6 H mg/dl
(0.2-1.3)
AST 1451 H* U/L
(17-59)
ALT 463 H U/L
(0-50)
Alkaline Phosphatase 149 H U/L
(38-126)
Urine Occult Blood 2+ A
(Negative)
Urine Bacteria Few A
(Negative)
Urine Glucose 4+ A
(Negative)
Urine Albumin 2+ A
(Neg - Trace)
08/14/25 16:11
08/14/25 16:11
Vital Signs
Initial and Last Documented VS:
Initial Vital Signs
Temp Pulse Resp BP Pulse Ox
98.0 F 94 20 170/127 98
08/14/25 15:04 08/14/25 15:04 08/14/25 15:04 08/14/25 15:04 08/14/25 15:04
Last Documented Vital Signs
Temp Pulse Resp BP Pulse Ox
98.5 F 88 21 170/127 98
08/14/25 19:38 08/14/25 19:32 08/14/25 19:32 08/14/25 15:04 08/14/25 19:39
<Maggie Raderarleth, DO - Last Filed: 08/14/25 20:40>
Orders/Labs/Results
Orders:
Orders
08/14/25 16:03
0.9% Sodium Chloride 1000 ml [Nss] 1,000 ml IV BOLUS
Lorazepam [Ativan] 1 mg IV NOW STA
Ondansetron Injectable [Zofran] 4 mg IV NOW STA
08/14/25 16:04
CR Chest - 2 Views Urgent
Comment:
Reason For Exam: cough
08/14/25 16:11
Alcohol Urgent
COVID-19 Antigen Urgent
Source: Nasal Swab
Complete Blood Count/With Diff Urgent
Comprehensive Metabolic Panel Urgent
Lipase Urgent
Influenza A+B Rapid Molecular Urgent
TEJAL Source: Nasal Swab
Specimen Description:
08/14/25 16:58
CT Abd/pelvis W Iv Cont Urgent
Comment:
Reason For Exam: abdominal pain
08/14/25 17:07
Urinalysis Stat
Date Specimen was Collected: 08/14/25
Time Specimen was Collected: 17:01
Urine Microscopic Stat
Date Specimen was Collected: 08/14/25
Time Specimen was Collected: 17:01
08/14/25 17:17
Nicotine [Nicoderm Transdermal] 21 mg TRANSDERM NOW STA
08/14/25 17:34
Ketorolac [Toradol] 15 mg IV NOW STA
08/14/25 19:30
HYDROmorphone [Dilaudid] 0.5 mg IV NOW STA
08/14/25 19:31
0.9% Sodium Chloride 1000 ml [Nss] 1,000 ml IV BOLUS
Abnormal Lab Results
08/14/25 08/14/25
16:11 17:07
MCH 32.6 H pg
(27.0-31.0)
MCHC 37.1 H g/dL
(33.0-37.0)
Absolute Neuts (auto) 7.8 H 10^3/uL
(1.4-6.5)
Absolute Monos (auto) 0.7 H 10^3/uL
(0.1-0.6)
Neutrophils % 75.4 H %
(42.2-75.2)
Lymphocytes % 16.2 L %
(20.5-51.1)
Sodium 129 L mmol/L
(135-145)
Chloride 96 L mmol/L
(98-107)
BUN 22 H mg/dl
(9-20)
Glucose 390 H mg/dl
(70-99)
Total Bilirubin 1.6 H mg/dl
(0.2-1.3)
AST 1451 H* U/L
(17-59)
ALT 463 H U/L
(0-50)
Alkaline Phosphatase 149 H U/L
(38-126)
Urine Occult Blood 2+ A
(Negative)
Urine Bacteria Few A
(Negative)
Urine Glucose 4+ A
(Negative)
Urine Albumin 2+ A
(Neg - Trace)
08/14/25 16:11
08/14/25 16:11
Vital Signs
Initial and Last Documented VS:
Initial Vital Signs
Temp Pulse Resp BP Pulse Ox
98.0 F 94 20 170/127 98
08/14/25 15:04 08/14/25 15:04 08/14/25 15:04 08/14/25 15:04 08/14/25 15:04
Last Documented Vital Signs
Temp Pulse Resp BP Pulse Ox
98.5 F 88 21 170/127 98
08/14/25 19:38 08/14/25 19:32 08/14/25 19:32 08/14/25 15:04 08/14/25 19:39
<Jak Bess PA-C - Last Filed: 08/14/25 19:39>
MDM/Problems Addressed
Differential Diagnosis Includes:
Patient here with abdominal pain alcohol use multiple complaints otherwise. Will check labs hydrate. He was given Ativan initially. Order's x-ray of his chest as well as CAT scan of his abdomen
<Jak Bess PA-C - Last Filed: 08/14/25 19:39>
*Pulse Oximetry
SaO2: 98
Oxygen Mode of Delivery: Room air
Patient hypoxic: no
*Critical Care Note
Total Time (30-74mins, 75-104mins- exclusive of procedures): Not Applicable
<Jak Bess PA-C - Last Filed: 08/14/25 19:39>
Update Note
Update Note:
Labs reviewed critically elevated transaminases. Lipase is normal. CT demonstrates nonspecific enteritis. Patient with significant pain with elevation of liver functions. Will admit to hospital for further treatment. Fluids ordered
ED Attending Note
<Jak Bess PA-C - Last Filed: 08/14/25 19:39>
-
Portions of this chart may have been created with voice recognition software.� Occasional wrong word or��sound alike� substitutions may have occurred due to the inherent limitations of voice recognition software.
<Maggie Elder DO - Last Filed: 08/14/25 20:40>
ED Attending Note
Patient seen and examined by attending physician: Yes
I performed the substantive portion of visit, reviewed & personally made and approve the management plan that is documented in note by myself or NAA.: Yes
I performed a history and physical exam of patient and discussed management with resident, I reviewed resident's note and agree with documented findings and plan of care.: Yes
ED Attending Note:
64-year-old male with known history of alcohol abuse presenting to the emergency department for multiple complaints. Patient had presented to rehab facility today for inpatient detox, however upon entering, had noted multiple complaints including
abdominal pain, cough, dysuria. Patient has been seen and evaluated in our facility for alcoholism on multiple occasions. Vital signs here are significant for hypertension, suspected likely from alcohol withdrawal with patient requesting Ativan.
On exam, patient no acute distress, initially agitated which has since improved. Patient nontoxic in appearance with generalized nonfocal abdominal pain. No respiratory distress, lungs clear to auscultation. Patient initially evaluated by
physician health care legal assistant with appropriate workup including laboratory analysis, urinalysis, chest x-ray imaging. Chest x-ray without acute cardiopulmonary disease, without concern for pneumonia. Labs show worsening liver disease, likely secondary to
known alcoholism. CT consistent with enteritis, consistent with patient's symptoms. Given worsening laboratory analysis, symptoms, not clear for inpatient detox. Plan for admission for supportive therapy with ultimate likely disposition to detox
Discharge Plan
Departure
Patient Disposition: Admit
Date of Disposition: 08/14/25
Time of Disposition: 19:33
Presentation/result/management discussed w/ accepting MD/DO: Hospitalist
Discharge Problem:
Enteritis, Transaminitis
Prescriptions:
No Action
insulin glargine U-300 conc [Toujeo SoloStar U-300 Insulin] 300 UNIT/ML insulin pen
40 unit SC DAILY
tamsulosin 0.4 MG capsule
0.4 mg PO BID
nicotine 21 mg/24 hr Patch 24 Hour
21 mg transdermal DAILY Qty: 30 0RF
phenobarbital 32.4 mg Tablet
See Rx Instructions .ROUTE .COMPLEX Qty: 12 0RF
Rx Instructions:
Take 2 tabs BID for 2 days, then 1 tab po BID x 2 days, then stop
cefdinir 300 mg capsule
300 mg PO BID 5 Days Qty: 10 0RF
nifedipine 30 mg tablet extended release 24hr
30 mg PO BID Qty: 60 0RF
naltrexone 50 mg Tablet
50 mg PO HS Qty: 30 0RF
Referrals:
NONE,* [Family Provider, Internal Medicine]
Interventions
Interventions:
*General Assessment Last Done: 08/14/25 15:11
*ED COVID-19 Vaccine History Last Done: 08/14/25 18:35
*ED Influenza Vaccine History Last Done: 08/14/25 18:35
[facility] Fall Risk Assessment Tool Last Done: 08/14/25 18:35
*Risk Screen - Suicide (C-SSRS) Last Done: 08/14/25 18:35
ED-Male Genitourinary Assessment Last Done: 08/14/25 15:33
Discharge Date and Time
Print Language: NIGERIAN
[2025-08-14] MEDS: DILAUDID 0.5 MG IV ×2 (19:51→22:54)
[2025-08-14 20:00] VITALS: BP 140/89
--- NOTE | 2025-08-14 20:51 | HPS.HSE ---
Family Physician
-
Family Physician: * NONE
Chief Complaint
-
Abdominal pain
History of Present Illness
This is a 64-year-old male with past medical history significant for insulin-dependent diabetes, alcohol dependence, hypertension and BPH who presents to the emergency department with complaints of abdominal pain
Patient reports drinking up until the day of admission. However for the last 4 days he reports that he has had a incessant cough. Due to cough he reports that he has abdominal soreness. He also reports nausea vomiting and diarrhea. His last
drink was this afternoon prior to arrival. Denies any fevers or chills. Denies any dysuria frequency urgency or incontinence. He reports compliance with his diabetic medications which he takes Lantus 40 units daily. When asked he reports that
the abdominal pain is diffuse and he denies any flank pain or right upper quadrant tenderness to palpation. By ED staff who was quite tender to palpation.
He was seeking care at a detox facility prior to coming in and he was sent here for evaluation.
In the emergency department he was afebrile, blood pressure was 140/90 with a pulse rate of 93 and oxygen saturation of 97% on room air. He had a white count of 10.2 hemoglobin Heron 0.7 and plate count of 234. Sodium was 129 otherwise
electrolytes were normal. BUN and creatinine were normal. Glucose was elevated at 390. UA was negative.
He had marked increase in AST to 1400 from prior elevated levels of 600. ALT was 400 alk phos was [address] and lipase was normal. CT of the abdomen pelvis shows mild enteritis. Chest x-ray shows no acute infiltrates.
Medical History
Past Medical History
Past Medical History: Reports HTN and IDDM
Additional Past Medical History:
Alcoholic pancreatitis, chronic alcohol use, prostate cancer�s/p radiation/hormone therapy at [place]
Past Surgical History: Reports None
Social History
Tobacco: Smoker
Alcohol: Chronic Alcoholic
Drug: None
Personal: Single
Living: Alone
Family History
Family History: Other (Father -alcohol abuse)
Allergies / Home Medications
Allergies reflects when Allergies were last updated in [facility].
Home Medications with original date entered in [facility]
Allergy/Medication List:
Allergies
Allergy/AdvReac Type Severity Reaction Status Date / Time
lisinopril Allergy facial Verified 06/12/25 06:31
swelling
Home Medications
insulin glargine U-300 conc 300 unit/mL (1.5 mL) subcutaneous pen (Toujeo SoloStar U-300 Insulin) 40 unit SC DAILY Diabetes 09/22/16
tamsulosin 0.4 mg capsule 0.4 mg PO BID Urinary Issue 09/15/21
amlodipine 5 mg tablet 5 mg PO DAILY 06/12/25
nifedipine 30 mg tablet,extended release 24 hr 30 mg PO DAILY 06/12/25
Review of Systems
-
Constitutional: Reports No Symptoms
EENT: Reports No Symptoms
Respiratory: Reports No Symptoms
Cardiac: Reports No Symptoms
Abdomen/GI: Reports Abdominal Pain, Nausea, Vomiting and Diarrhea
: Reports No Symptoms
Musculoskeletal: Reports No Symptoms
Skin: Reports No Symptoms
Neurological: Reports No Symptoms
Endocrine: Reports No Symptoms
Hematologic/Lymphatic: Reports No Symptoms
Psych: Reports No Symptoms
Physical Exam
Vital Signs
Vital Signs
Temp Pulse Resp BP Pulse Ox
98.5 F 93 17 140/89 97
08/14/25 19:38 08/14/25 20:30 08/14/25 20:30 08/14/25 20:00 08/14/25 20:30
Physical Exam
General: No Apparent Distress
HEENT: NormoCephalic
Respiratory: Clear
Cardiac: S1/S2 and Regular Rhythm
GI: Soft, Non Tender, Non Distended and Normal Bowel Sounds
Rectal: Deferred by Provider
Genito-urinary: No costovertebral tender and Other (No suprapubic tenderness)
Musculoskeletal: No Clubbing
Skin: Warm and Dry
Neuro: Awake, Alert, Oriented, AO x 3 and Nonfocal/grossly intact; No Tremors
Psych: Calm
Laboratory Results
-
08/14/25 16:11
08/14/25 16:11
Laboratory Results
Total Bilirubin 1.6 mg/dl (0.2-1.3) H 08/14/25 16:11
AST 1451 U/L (17-59) H* 08/14/25 16:11
ALT 463 U/L (0-50) H 08/14/25 16:11
Alkaline Phosphatase 149 U/L (38-126) H 08/14/25 16:11
Lipase 97 U/L (23-300) 08/14/25 16:11
Data Reviewed
-
CT Scan: Report Reviewed by me
Lab Data: Labs Reviewed by me
Old Records: Reviewed
Impression/Plan
-
IMPRESSION:
64-year-old with history of alcohol dependence, insulin-dependent diabetes, BPH, recurrent attempts at alcohol rehab who presents to Emergency Department after visiting a detox for rehab and was sent to the emergency department due to complaints of
abdominal pain and nausea vomiting and diarrhea. Patient reports that symptoms began with a cough that he has had for few days now. Denies any fevers or chills. Chest x-ray is clear. CT of the abdomen pelvis shows enteritis. His labs mostly
notable for a sodium of 129, glucose of over 300 and increasing AST to 1451 and ALT of 463. There is a acute on chronic exacerbation of his transaminitis likely secondary to ongoing alcohol use. He is alert and oriented and he is not
encephalopathic at this time.
PLAN:
Abdominal pain�gastroenteritis versus acute alcoholic hepatitis
� Admit to MedSurg for now
� Clear liquid diet for now
� Pain control and antiemetics
� Trend LFTs
� Will check INR, if discriminant function elevated will start on steroids
� GI consultation
Alcohol dependence�last use was today.
� Msass protocol
� No acute withdrawal at this time
Insulin-dependent diabetes and hyperglycemia�,
� Sliding scale insulin for now
� Will give a small dose of regular insulin 4 units
� Continue with Lantus in the morning
BPH
Continue tamsulosin
Hypertension
Continue nifedipine 30 mg twice daily
DVT prophylaxis�heparin subcu for now
CODE STATUS�DNR
[2025-08-14 21:00] VITALS: BP 166/99
[2025-08-14 21:41] LABS: INR 1.48; PT 18.1 Sec (11.4-14.6)
[2025-08-14 22:30] VITALS: BP 159/110
[2025-08-14 22:53] LABS: Glucose - Point of Care 152 mg/dl (70-99)
[2025-08-14] MEDS: REVIA 50 MG PO (22:55)
[2025-08-14] MEDS: HEPARIN 5000 UNITS SC (23:02)
[2025-08-15] MEDS: ZOFRAN 4 MG IV ×2 (01:21→07:47)
[2025-08-15] MEDS: ROBITUSSIN 200 MG PO ×2 (01:21→07:47)
[2025-08-15] MEDS: DILAUDID 0.5 MG IV ×5 (01:48→17:37)
--- NOTE | 2025-08-15 02:45 | W.PN.UPDATE ---
Update Note
Progress Note Update
naltrexone stopped for time being as pt is taking opiates.
[2025-08-15] MEDS: PROTONIX IV 40 MG IV ×3 (04:00→20:29)
[2025-08-15] MEDS: PHENERGAN SYRUP 6.25 MG PO (04:00)
[2025-08-15] MEDS: NSS (PRESERVATIVE FREE) 10 ML IV ×3 (04:00→20:29)
[2025-08-15 07:01] LABS: Hematocrit 38.5 % (39.0-52.0); Hemoglobin 14.0 g/dL (13.0-18.0); Mean Corp Hgb Conc. 36.4 g/dL (33.0-37.0); Mean Corpuscular Volume 88.5 fL (80.0-94.0); Platelet Count 185 10^3/uL (130-400); Red Cell Dist. Width 13.4 % (11.5-14.5)
--- NOTE | 2025-08-15 07:11 | PTCARENOTE ---
Patient arrived on unit @ approximately 2230 via stretcher, ambulate to bed with staff assist. Patient AAOx3 drowsy c/o 10/10 pain to whole body. PRN dilaudid given as ordered, MSAS protocol resumed. Skin assessment completed, oriented to unit, call
chambers within reach.
[2025-08-15 07:26] LABS: ALT (SGPT) 374 U/L (0-50); Albumin 3.3 g/dl (3.5-5.0); Alkaline Phosphatase 193 U/L (38-126); Blood Urea Nitrogen 22 mg/dl (9-20); Calcium 8.4 mg/dl (8.4-10.2); Carbon Dioxide 25 mmol/L (22-30); Chloride 104 mmol/L (98-107); Estimated Creatinine Clearance 84 ml/min; Glucose 107 mg/dl (70-99); Magnesium 1.5 mg/dl (1.6-2.3); Potassium 3.7 mmol/L (3.5-5.1); Sodium 132 mmol/L (135-145); Total Protein 6.1 g/dl (6.3-8.2); eGFR > 60.00
[2025-08-15 07:45] LABS: AST (SGOT) 1057 U/L (17-59)
[2025-08-15] MEDS: FLOMAX 0.4 MG PO ×2 (07:49→20:29)
[2025-08-15] MEDS: PROCARDIA XL (EXTENDED RELEASE) 30 MG PO (07:49)
[2025-08-15] MEDS: FOLVITE 1 MG PO (07:49)
[2025-08-15] MEDS: HEPARIN 5000 UNITS SC (07:49)
[2025-08-15] MEDS: THIAMINE INJECTION 200 MG IV ×2 (07:50→20:29)
[2025-08-15] MEDS: LANTUS 0.4 UNITS SC (07:54)
[2025-08-15 07:55] LABS: Glucose - Point of Care 126 mg/dl (70-99)
[2025-08-15 08:14] VITALS: BP 190/98
[2025-08-15 08:51] LABS: Glycohemoglobin (HgbA1c) 8.5 % (4.0-5.9)
[2025-08-15 09:14] VITALS: BMI 24.0
--- NOTE | 2025-08-15 10:45 | W.PN.HOSP.TC ---
Today's Communication/Plan
-
advance diet
follow up INR, and repeat DF
BID Protonix
trend liver enzymes
Assessment / Plan
Assessment / Plan
CT A/P
ABDOMEN:
Hepatic steatosis. The gallbladder, bile ducts, spleen, bilateral adrenal glands. The pancreas remains severely atrophic with parenchymal calcifications, consistent with chronic pancreatitis. Chronic bilateral renal cortical thinning. No
hydronephrosis.
IMPRESSION:
CT findings may reflect a mild nonspecific enteritis.
Chronic pancreatitis.
IMPRESSION:
64-year-old with history of alcohol dependence, insulin-dependent diabetes, BPH, recurrent attempts at alcohol rehab who presents to Emergency Department after visiting a detox for rehab and was sent to the emergency department due to complaints of
abdominal pain and nausea vomiting and diarrhea. Patient reports that symptoms began with a cough that he has had for few days now. Denies any fevers or chills. Chest x-ray is clear. CT of the abdomen pelvis shows enteritis. His labs mostly
notable for a sodium of 129, glucose of over 300 and increasing AST to 1451 and ALT of 463. There is a acute on chronic exacerbation of his transaminitis likely secondary to ongoing alcohol use. He is alert and oriented and he is not
encephalopathic at this time.
PLAN:
Abdominal pain�gastroenteritis versus acute alcoholic hepatitis
� Admit to MedSurg
- advance diet
- T. Bili up, repeat INR this morning
- trend liver enzymes
- start BID Protonix
Alcohol dependence�last use was today.
� Msass protocol
� No acute withdrawal at this time
-T[employer]ACH[employer] Naltrexone on hold
Depression
-patient denies history of being on SSRI
-he is wanting to talk to a psychiatrist, Psychiatry consult in
Insulin-dependent diabetes
-BGL better this morning
-lower Lantus dosing
-ISS
BPH
Continue tamsulosin
Hypertension
Continue nifedipine 30 mg twice daily
DVT prophylaxis� Lovenox subQ
CODE STATUS�DNR
Anticipated Discharge: 24 - 48 hours
Subjective/Interval History
-
Date of Service: August 15, 2025
states his abdominal pain is improved
cough is better
he was feeling depressed, wants to talk to a psychiatrist
very hungry and wants to eat
Objective Data
-
Labs:
Laboratory Results
08/15/25 08/15/25
06:23 10:39
WBC 9.1
Hgb 14.0
Hct 38.5 L
Plt Count 185 D
PT Pending
INR Pending
Sodium 132 L
Potassium 3.7
Chloride 104
Carbon Dioxide 25
BUN 22 H
Creatinine 0.9
Glucose 107 H
Calcium 8.4
Total Bilirubin 3.2 H D
AST 1057 H*
ALT 374 H
Alkaline Phosphatase 193 H
Vital Signs:
Vital Signs
Temp Pulse Resp BP Pulse Ox
98.4 F 69 18 190/98 2
08/15/25 08:14 08/15/25 08:14 08/15/25 08:14 08/15/25 08:14 08/15/25 08:14
I&O
08/14/25 08/15/25 08/16/25
06:59 06:59 06:59
Intake Total 480 / 480
Balance 480 / 480
Review of Systems
-
History Source: Patient
All other systems: Reviewed and negative
Physical Exam
-
General: Well Developed and No Apparent Distress
HEENT: Normocephalic, Atraumatic and Moist Mucous Membranes
Respiratory: Clear to Auscultation
Cardiac: Regular Rhythm and S1/S2; Negative Murmur, Rub or Gallop
GI: Soft, Nontender, Nondistended and Normal Bowel Sounds; Negative Organomegaly
Rectal: Deferred by Provider
Musculoskeletal: No Clubbing, No Cyanosis and No Edema
Skin: Negative Rash
Neuro: Awake, Alert, Oriented, AO x 3 and Nonfocal/Grossly Intact
Psych: Anxious
Data Reviewed
-
Diagnostic Radiology: Report Reviewed by me
Labs: Labs Reviewed by me
[2025-08-15 11:05] LABS: Glucose - Point of Care 99 mg/dl (70-99)
--- NOTE | 2025-08-15 11:21 | CON.GI ---
Consultation
-
Date/Time Consultation Requested: 08/15/25, 11.04 am
Date/Time Consultation Performed: 08/15/25, 11. 20 am
Requesting Provider: Regina Chahal MD
Performing Provider: Mary Gupta MD for Jeannie Camarena MD
Reason for Consultation: Enteritis
Medical History
Chief Complaint / HPI
Chief Complaint: Abdominal pain, cough
History of Present Illness:
64-year-old male with past medical history significant for IDDM, alcohol use disorder with dependence, hypertension, BPH, prostate carcinoma s/p radiation and hormonal therapy at [place], presents to the ER for evaluation of abdominal pain.
Patient states that he spent 1 month in inpatient rehab, and successfully quit alcohol after discharge from inpatient rehab, and started drinking again about a week ago. He was consuming 4 hours of raw alcohol every 4 hours for the last 7 days
until admission yesterday. His abdominal pain started about 3 days ago, reports it is 0 dull aching pain in bilateral lower quadrants and sharp shooting pain in bilateral upper quadrants. Yesterday he had a bout of cough episode that he could not
stop that resulted in posttussive emesis-nonbloody nonbilious. He called [facility] to help him with his alcohol intake who recommended him to go to the ER.
He reports not having a bowel movement in about 2 days attributing it to his reduced oral intake and poor appetite.
He reports feeling bloated and burping, with some associated nausea.
He denies having dysphagia, odynophagia, constipation, diarrhea, tarry colored stools, blood in the stool, chest pain, shortness of breath on exertion, syncope or near syncopal episodes, dysuria or hesitancy or flank pain. He denies having fevers
or chills.
He had prior episodes of alcoholic hepatitis in the past requiring hospital admission.
Upon arrival to the ER, he was found to be afebrile, had a blood pressure of 140/90, his blood pressure in the a.m. and today at 190/98, he is not tachycardic, not tachypneic and is satting 98% on room air. WBC count of 10.2, hemoglobin levels of
11.1 and a platelet count of 234. His serum sodium was 129, blood glucose is elevated at 390 and marked elevation in AST from 1400 and ALT at 400, lipase is normal. CT abdomen and pelvis showed mild enteritis. Chest x-ray showed no infiltrates.
Past Medical History
Past Medical History: Other (IDDM, alcohol use disorder with dependence, hypertension, BPH, prostate carcinoma s/p radiation and hormonal therapy)
Past Surgical History: Other (None)
Social History
Tobacco: Non-Smoker
Alcohol: Chronic Alcoholic (Alcohol dependence currently in detox outpatient rehab)
Drug: None
Personal: Single
Living: Alone
Employment: Retired
Family History
Family History: Other (Alcohol use disorder in father, who from the same.)
Allergies / Home Medications
Allergy/AdvReac Type Severity Reaction Status Date / Time
lisinopril Allergy facial Verified 08/14/25 15:10
swelling
�Medication �Instructions �Recorded
insulin glargine U-300 conc 300 40 unit SC DAILY Diabetes 09/22/16
unit/mL (1.5 mL) subcutaneous pen
(Toujeo SoloStar U-300 Insulin)
tamsulosin 0.4 mg capsule 0.4 mg PO BID Urinary Issue 09/15/21
cefdinir 300 mg capsule 300 mg PO BID 5 days #10 caps 06/14/25
naltrexone 50 mg tablet 50 mg PO HS #30 tabs 06/14/25
nicotine 21 mg/24 hr daily 21 mg transdermal DAILY #30 ea 06/14/25
transdermal patch
nifedipine 30 mg tablet,extended 30 mg PO BID blood pressure #60 06/14/25
release 24 hr tabs
phenobarbital 32.4 mg tablet See Rx Instructions .Route 06/14/25
.COMPLEX #12 tabs
Review of Systems
-
History Source: Patient
Constitutional: Reports Fatigue
EENT: Reports No Symptoms
Respiratory: Reports Cough
Cardiac: Reports No Symptoms
Abdomen/GI: Reports Abdominal Pain, Nausea and Vomiting; Denies Diarrhea, Constipated, Bloody Stools, Black Stools or Anorexia
: Reports No Symptoms
Musculoskeletal: Reports No Symptoms
Skin: Reports No Symptoms
Neurological: Reports Other (tingling and numbness in hands b/l)
Endocrine: Reports No Symptoms
Hematologic/Lymphatic: Reports No Symptoms
Vital Signs
Temp Pulse Resp BP Pulse Ox
98.4 F 69 18 190/98 2
08/15/25 08:14 08/15/25 08:14 08/15/25 08:14 08/15/25 08:14 08/15/25 08:14
Physical Exam
Exam
General: No Apparent Distress and Comfortable
HEENT: Normocephalic and Moist Mucous Membranes; Negative Anicteric (sclera icteric)
Respiratory: Clear; Negative Wheezes, Rales or Rhonchi
Cardiac: S1/S2 and Regular Rhythm; Negative Murmur or Rub
GI: Soft, Normal Bowel Sounds, Tender (Diffusely tender) and Distended (mildly); Negative Non Tender or Non Distended
Genito-urinary: No Costovertebral Tender
Musculoskeletal: No Clubbing, No Cyanosis and No Edema
Neuro: AO x 3
Psych: Other (anxious and tearful)
Results
WBC 9.1 10^3/uL (4.8-10.8) 08/15/25 06:23
Hgb 14.0 g/dL (13.0-18.0) 08/15/25 06:23
Hct 38.5 % (39.0-52.0) L 08/15/25 06:23
MCV 88.5 fL (80.0-94.0) 08/15/25 06:23
Plt Count 185 10^3/uL (130-400) D 08/15/25 06:23
Absolute Neuts (auto) 7.8 10^3/uL (1.4-6.5) H 08/14/25 16:11
PT 18.1 Sec (11.4-14.6) H 08/14/25 21:26
INR 1.48 08/14/25 21:26
Sodium 132 mmol/L (135-145) L 08/15/25 06:23
Potassium 3.7 mmol/L (3.5-5.1) 08/15/25 06:23
Chloride 104 mmol/L (98-107) 08/15/25 06:23
Carbon Dioxide 25 mmol/L (22-30) 08/15/25 06:23
BUN 22 mg/dl (9-20) H 08/15/25 06:23
Creatinine 0.9 mg/dL (0.7-1.3) 08/15/25 06:23
Calcium 8.4 mg/dl (8.4-10.2) 08/15/25 06:23
Total Bilirubin 3.2 mg/dl (0.2-1.3) H D 08/15/25 06:23
AST 1057 U/L (17-59) H* 08/15/25 06:23
ALT 374 U/L (0-50) H 08/15/25 06:23
Alkaline Phosphatase 193 U/L (38-126) H 08/15/25 06:23
Lipase 97 U/L (23-300) 08/14/25 16:11
Diagnostic Image Results:
CT abdomen/pelvis - 08/14/25 -
IMPRESSION:
CT findings may reflect a mild nonspecific enteritis.
Chronic pancreatitis.
Prior GI Procedures:
EGD: None
Colonoscopy: None
Assessment / Plan
-
Assessment-Wilfredo is a 64-year-old male with past medical history significant for IDDM, alcohol use disorder with dependence, hypertension, BPH, prostate carcinoma s/p radiation and hormonal therapy at [place], presents to the ER for evaluation
of abdominal pain. GI is consulted for alcoholic hepatitis and enteritis.
Problem list-
# alcoholic hepatitis without cirrhosis/ascites
# insulin-dependent diabetes mellitus
# alcohol use disorder
# major depressive disorder
# Chronic pancreatitis
# Enteritis.
Plan-
Alcoholic hepatitis-
Patient has elevated total bilirubin, AST, ALT with normal platelet count and INR.
His Madrey's discrimination score is at 10.6. No steroids indicated at this time.
PPIs not indicated once patient's reflux symptoms subside.
Will obtain stool fat for chronic pancreatitis evaluation.
Enteritis - mild based on CT abdomen
No recent use of antibiotics
Less likely c. diff
Other possible differential could be secondary to radiation, vs infectious
Will Obtain stool studies and cultures
-
-
Thank you for consultation and allowing me to participate in the patient's care. Please call the information technology technician GI physician during the after hours with any questions or concerns.
[2025-08-15 11:32] VITALS: BP 134/83
[2025-08-15 11:34] LABS: INR 1.33; PT 16.2 Sec (11.4-14.6)
--- NOTE | 2025-08-15 12:41 | CM ---
Met w/ patient bedside, attempted IA but patient asking for CM to return as he wants to eat lunch and is asking for pain medication.
Patient is a 64-year-old male with past medical history significant for insulin-dependent diabetes, alcohol dependence, hypertension and BPH who presents to the emergency department with complaints of abdominal pain.
From previous admission in May. Patient resides alone in a single story mobile home, 3 steps to enter. Patient is independent, no DME. Works.
No SNF/HC hx.
PCP: No PCP assigned, was provided residency clinic in the past
Pharmacy: [facility]
CM consulted for substance counseling/resources. Patient did not want to discuss. Per previous admission, was offered [facility] and declined. Last admission patient was agreeable to AA
Plan: Home. CM can discuss [facility] again w/ patient
[2025-08-15] MEDS: MAGNESIUM SULFATE 50 IV (14:01)
[2025-08-15] MEDS: NSS (PRESERVATIVE FREE) 0.5 ML IV ×2 (14:53→20:27)
[2025-08-15] MEDS: TYLENOL 650 MG PO (14:53)
[2025-08-15] MEDS: ATIVAN 1 MG IV ×2 (14:53→20:28)
[2025-08-15 15:00] VITALS: BP 140/80
--- NOTE | 2025-08-15 15:39 | CON.MD ---
Consultation - Medical
-
64 y/o single man with long alcohol history who works driving cars on Tuesdays at the [employer] admitted yesterday when he was seeking detox but referred due to abdominal pain and loose stool. Was disrespectful in the ED (which is not
uncommon for him by his on admission) and asked to see a psychiatrist due to depression. Said he is 'having bad thoughts' but denies suicidal ideation. He admits he has been depressed, sleeps excessively and is 'not facing facts.' Lives in the
mobile home community near the hospital and often has trouble with neighbors, is well-known to police (often he calls them) and is disturbed by the hospital helocopters. He had been cutting back on his drinking -- was drinking 10-15 high potency 16
oz. beers a day, but then reduced to one a day drinking small amounts at a time. Had just left detox at [place] within the past month. His mother just before that. He was close to her. He has no friends or support from family (has
siblings).
Current meds: nifedipine, Flomax, insulin, Folic Acid, Thiamine, Protonix, Lovenox, Mag Sulfate.
On presentation, BP was 170/127. Is on MSAS protocol.
LAB: Na 129, Gluc 390, AST 1451, ALT 463, Alk Phos 149, Urine + blood.
He has htn, IDDM, pancreatitis, GI problems and is in remission from prostate cancer (Had RT and hormonal treatment).
PH: Was once treated with sertraline, but it was not helpful and he stopped taking it. Was drinking at the time. Has been admitted to [place] five times, never staying past detox. His Medicare plan does not pay for most treatment programs.
He has attended AA but complains many people have drug addictions and not pure alcoholism. Was on naltrexone (oral) apparently without benefit. Never in psychiatric hospital.
FH: Father was alcoholic, is . Mother had a boyfriend. When he , his famliy made her sell the house. He claims she had been in the same room as he is in at . Parents were . Pt. was never . Has siblings, but not
close to them.
SH: Grew up in [place], attended public school. Graduated from [employer]. 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 Money is tight. Has
Medicaid as well as Medicare. Smokes 1 1/2 PPD. Denies any drug abuse.
Mental Status: Man appearing his chronological age; in no distress. Alert and oriented. Says he is hungry. No tremors. Has temporary dentures as he had a fight with his dentist. Mood is depressed. Does not see solutions to his problems.
Critical of AA. Admits to being irritable with people and that his behavior is affected by drinking. No evidence of hallucinations or delusions. Speech is well-articulated; normal rate and volume and prosody. Memory appears good. Insight good,
but judgment has been poor.
Psychiatric Diagnoses:
Alcohol Withdrawal
Adjustment Disorder with Depressed Mood
Plan: I would not consider any antidepressant treatment until medically stabilized. If Na normalizes and transaminases, might consider an SSRI. Avoid duloxetine (liver failure risk) and bupropion (seizure risk).
Requested Case management consult. Should be seen by [facility]. Perhaps a sober living environment would be best discharge plan and selling his current home where he is unhappy and likely causes disturbances regularly.
Psychiatry will follow.
[2025-08-15 16:16] LABS: Glucose - Point of Care 144 mg/dl (70-99)
[2025-08-15] MEDS: NICODERM TRANSDERMAL 21 MG TRANSDERM (17:33)
[2025-08-15 21:39] LABS: Glucose - Point of Care 223 mg/dl (70-99)
[2025-08-15] MEDS: MELATONIN 5 MG PO (22:09)
[2025-08-15 23:07] VITALS: BP 100/60
[2025-08-16] MEDS: ROBITUSSIN 200 MG PO (04:35)
[2025-08-16] MEDS: DILAUDID 0.5 MG IV ×2 (04:37→09:07)
[2025-08-16 07:42] LABS: Glucose - Point of Care 82 mg/dl (70-99)
[2025-08-16 08:03] VITALS: BP 138/93
[2025-08-16] MEDS: LANTUS 0.3 UNITS SC (08:51)
[2025-08-16] MEDS: PROCARDIA XL (EXTENDED RELEASE) 30 MG PO (08:51)
[2025-08-16] MEDS: FLOMAX 0.4 MG PO (08:51)
[2025-08-16] MEDS: FOLVITE 1 MG PO (08:51)
[2025-08-16] MEDS: PROTONIX IV 40 MG IV (08:52)
[2025-08-16] MEDS: THIAMINE INJECTION 200 MG IV (08:52)
[2025-08-16] MEDS: NSS (PRESERVATIVE FREE) 10 ML IV (08:52)
[2025-08-16] MEDS: TESSALON PERLES 200 MG PO (09:07)
--- NOTE | 2025-08-16 10:07 | W.PN.HOSP.TC ---
Today's Communication/Plan
-
possible DC after morning labs result
Assessment / Plan
Assessment / Plan
CT A/P
ABDOMEN:
Hepatic steatosis. The gallbladder, bile ducts, spleen, bilateral adrenal glands. The pancreas remains severely atrophic with parenchymal calcifications, consistent with chronic pancreatitis. Chronic bilateral renal cortical thinning. No
hydronephrosis.
IMPRESSION:
CT findings may reflect a mild nonspecific enteritis.
Chronic pancreatitis.
IMPRESSION:
64-year-old with history of alcohol dependence, insulin-dependent diabetes, BPH, recurrent attempts at alcohol rehab who presents to Emergency Department after visiting a detox for rehab and was sent to the emergency department due to complaints of
abdominal pain and nausea vomiting and diarrhea. Patient reports that symptoms began with a cough that he has had for few days now. Denies any fevers or chills. Chest x-ray is clear. CT of the abdomen pelvis shows enteritis. His labs mostly
notable for a sodium of 129, glucose of over 300 and increasing AST to 1451 and ALT of 463. There is a acute on chronic exacerbation of his transaminitis likely secondary to ongoing alcohol use. He is alert and oriented and he is not
encephalopathic at this time.
PLAN:
Abdominal pain�gastroenteritis versus acute alcoholic hepatitis
� Admitted to [facility]
- tolerating advanced diet
- DF < 32, no need for steroids
- awaiting morning labs
- start BID Protonix (do not need to continue at [facility])
Alcohol dependence�last use was today.
� MSAS protocol
� No acute withdrawal at this time (receiving intermittent ativan for anxiety)
-RAZOR SHARPENER Naltrexone on hold
Depression
-patient denies history of being on SSRI
-he is wanting to talk to a psychiatrist, Psychiatry consult in - appreciate Eval
Insulin-dependent diabetes
-BGL better this morning
-lower Lantus dosing
-ISS
BPH
Continue tamsulosin
Hypertension
Continue nifedipine 30 mg twice daily
DVT prophylaxis� Lovenox subQ
CODE STATUS�DNR
Anticipated Discharge: Within 24 hours
Subjective/Interval History
-
Date of Service: August 16, 2025
patient is eating and drinking OK
no diarrhea this morning
feels stressed emotionally
Objective Data
-
Labs:
Laboratory Results
08/16/25
06:00
PT Pending
INR Pending
Sodium Pending
Potassium Pending
Chloride Pending
Carbon Dioxide Pending
BUN Pending
Creatinine Pending
Glucose Pending
Calcium Pending
Total Bilirubin Pending
AST Pending
ALT Pending
Alkaline Phosphatase Pending
Vital Signs:
Vital Signs
Temp Pulse Resp BP Pulse Ox
97.7 F 92 18 139/93 93
08/16/25 08:03 08/16/25 08:51 08/16/25 08:03 08/16/25 08:51 08/16/25 09:36
I&O
08/15/25 08/16/25 08/17/25
06:59 06:59 06:59
Intake Total 1280 / 1280 480 / 480
Balance 1280 / 1280 480 / 480
Review of Systems
-
History Source: Patient
All other systems: Reviewed and negative
Physical Exam
-
General: Well Developed and No Apparent Distress
HEENT: Normocephalic, Atraumatic and Moist Mucous Membranes
Respiratory: Clear to Auscultation
Cardiac: Regular Rhythm and S1/S2; Negative Murmur, Rub or Gallop
GI: Soft, Nontender, Nondistended and Normal Bowel Sounds; Negative Organomegaly
Rectal: Deferred by Provider
Musculoskeletal: No Clubbing, No Cyanosis and No Edema
Skin: Negative Rash
Neuro: Awake, Alert, Oriented, AO x 3 and Nonfocal/Grossly Intact
Psych: Anxious
Data Reviewed
-
Diagnostic Radiology: Report Reviewed by me
Labs: Labs Reviewed by me
--- NOTE | 2025-08-16 10:22 | W.PN.UPDATE ---
Update Note
Progress Note Update
64 y/o single male with history of longstanding alcohol use disorder with alcoholic hepatitis, chronic pancreatitis, poorly controlled DM admitted due to GI distress and found to have elevated LFT's and hyponatremia. GI has consulted and signed
off. I saw him for consultation yesterday at his request for depression. As he was in alcohol withdrawal and had hyponatremia I did not start antidepressant treatment. Of note, he is highly critical of many people and situations -- the nursing
care, Medicare limitations, cost of living in the mobile home community near the hospital, noises from [employer], his dentist, etc. Mother about a month ago who was the only supportive person in his life. Has failed multiple detox admissions and
claims that his insurance will not pay for alcohol rehabilitation past detox. He has complaints about AA groups as well, but demonstrated some knowledge. He has repeatedly been rude in the ED.
When seen today, awake, alert, oriented and able to ambulate independently. No tremor evident. Said his sleep was poor because of the timing of his 'pain medication.' He had a good appetite for dinner and ate most of what was served. Complains
about how his diabetic diet is treated at the hospital despite his poor control at home doing things his way. He still complains of depression, but is not suicidal. No signs of psychosis. No abdominal pain except for muscular pain from coughing
prior to admission. This morning, he refused labs saying it was the fault of the 'provider' but did not further explain himself. I told him getting labs today is important given his low sodium yesterday.
I suggested he might be a good candidate for a dual diagnosis psychiatric program, such as at [facility]. While he is not opposed, does not want to go directly to a hospital but wants to go home to gather his clothing, etc. Not surprisingly,
there is no one who could assist him with this. He may also need rent assistance as he is at risk of being evicted for not paying the lot fee.
When medically stable, I recommend treatment with an SSRI (if sodium normalized) and perhaps a low-dose atypical antipsychotic.
While discharge to home is not ideal, there are no grounds for involuntary hospitalization and he is competent to decide on refusal of medical recommendations.
Hopefully can be seen by [facility] prior to discharge.
[2025-08-16] MEDS: ATIVAN 0.5 MG PO (10:28)
[2025-08-16 11:08] LABS: INR 1.15; PT 14.5 Sec (11.4-14.6)
[2025-08-16 11:21] LABS: Glucose - Point of Care 194 mg/dl (70-99)
[2025-08-16 11:26] LABS: ALT (SGPT) 224 U/L (0-50); AST (SGOT) 290 U/L (17-59); Albumin 3.4 g/dl (3.5-5.0); Alkaline Phosphatase 180 U/L (38-126); Blood Urea Nitrogen 13 mg/dl (9-20); Calcium 8.7 mg/dl (8.4-10.2); Carbon Dioxide 26 mmol/L (22-30); Chloride 100 mmol/L (98-107); Estimated Creatinine Clearance 76 ml/min; Glucose 200 mg/dl (70-99); Potassium 3.5 mmol/L (3.5-5.1); Sodium 130 mmol/L (135-145); Total Protein 6.2 g/dl (6.3-8.2); eGFR > 60.00
--- NOTE | 2025-08-16 12:05 | W.DS.TRANS ---
DC Summary - Hydroblaster
-
Discharge Instructions:
Discharge Diagnosis/Procedures alcoholic hepatitis
Diet Regular
Activity As tolerated
Bathing Restrictions None
Instructions:
Stand-Alone Forms:
Changes to Home Medications: Yes
Discharge Medications:
DC Medications w/original date entered in [facility]
insulin glargine U-300 conc 300 unit/mL (1.5 mL) subcutaneous pen (Toujeo SoloStar U-300 Insulin) 40 unit SC DAILY Diabetes 09/22/16
tamsulosin 0.4 mg capsule 0.4 mg PO BID Urinary Issue 09/15/21
naltrexone 50 mg tablet 50 mg PO HS #30 tabs 06/14/25
nicotine 21 mg/24 hr daily transdermal patch 21 mg transdermal DAILY #30 ea 06/14/25
nifedipine 30 mg tablet,extended release 24 hr 30 mg PO BID blood pressure #60 tabs 06/14/25
folic acid 1 mg tablet 1 mg PO DAILY #30 tabs 08/16/25
guaifenesin 100 mg/5 mL oral liquid 200 mg (10 mL) PO Q4HPRN PRN cough #1,000 mL 08/16/25
pantoprazole 40 mg tablet,delayed release (Protonix) 40 mg PO DAILY #14 tabs 08/16/25
thiamine mononitrate (vit B1) 100 mg tablet 100 mg PO DAILY #30 tabs 08/16/25
Home Medication Changes
You are started on vitamins Thiamine and Folate
You are started on Protonix to help with gastritis symptoms. Follow up with your doctor if symptoms return after Protonix course completes.
You are prescribed Robitussin for cough.
Pending Results: No
--- NOTE | 2025-08-16 12:06 | W.DCSUMMARY ---
Discharge Summary
Discharge Data
Date of Admission: 08/14/25
Date of Discharge: 08/16/25
-
Pending Results: No
Hospital Course
Discharging Physician : Dr. Regina Chahal
Disposition : Home
Principal Discharge diagnosis : Alcohol Hepatitis/ Enteritis
Hospital Course :
Mr. Wilfredo Fong is a 64 yo man with hx IDDM, alcohol abuse, esesntial HTN, BPH presents to the ER with cough and abdominal pain.
In the emergency department he was afebrile, blood pressure was 140/90 with a pulse rate of 93 and oxygen saturation of 97% on room air. He had a white count of 10.2 hemoglobin Heron 0.7 and plate count of 234. Sodium was 129 otherwise
electrolytes were normal. BUN and creatinine were normal. Glucose was elevated at 390. UA was negative.
He had marked increase in AST to 1400 from prior elevated levels of 600. ALT was 400 alk phos was 400 and lipase was normal. CT of the abdomen pelvis shows mild enteritis. Chest x-ray shows no acute infiltrates. Covid and Flu Negative.
He was admitted to medicine with GI consulting for alcoholic hepatitis/enteritis. Patient was given IV fluids and started on MSAS Protocol. DF score tested x 2 and less than 32, no need for steroids. His liver enzymes trended down. He was
started on Protonix. He is tolerating a regular diet prior to discharge.
Patient reported he did not want to go straight to rehab post hospitalization. He discussed options with CM and Psychiatry.
Hyponatremia improved with IVF, Na 130 on day of discharge.
Patient was seen by Psychiatry for depression. When clinically stable with improved sodium levels, can consider initiation of SSRI. Please see Psychiatry progress note.
Time spent on discharge was 35 minutes.
Important imaging findings :
Abdomen/Pelvis CT
IMPRESSION:
CT findings may reflect a mild nonspecific enteritis.
Chronic pancreatitis.
Procedure findings :
Discharge Plan
-
Patient Disposition: Home (Routine Discharge)
Discharge Diagnosis/Procedures: alcoholic hepatitis
Diet: Regular
Activity: As tolerated
Bathing Restrictions: None
Referrals:
NONE,* [Family Provider, Internal Medicine] - in less than 1 week
Additional Discharge Medication Instructions: You are started on vitamins Thiamine and Folate
You are started on Protonix to help with gastritis symptoms. Follow up with your doctor if symptoms return after Protonix course completes.
You are prescribed Robitussin for cough.
Prescriptions:
New
guaifenesin 100 mg/5 mL Liquid
200 mg PO Q4HPRN PRN (Reason: cough) Qty: 1000 0RF
folic acid 1 mg Tablet
1 mg PO DAILY Qty: 30 0RF
thiamine mononitrate (vit B1) 100 mg Tablet
100 mg PO DAILY Qty: 30 0RF
pantoprazole [Protonix] 40 mg tablet,delayed release (DR/EC)
40 mg PO DAILY Qty: 14 0RF
Continued
insulin glargine U-300 conc [Toujeo SoloStar U-300 Insulin] 300 UNIT/ML insulin pen
40 unit SC DAILY
tamsulosin 0.4 MG capsule
0.4 mg PO BID
nicotine 21 mg/24 hr Patch 24 Hour
21 mg transdermal DAILY Qty: 30 0RF
nifedipine 30 mg tablet extended release 24hr
30 mg PO BID Qty: 60 0RF
naltrexone 50 mg Tablet
50 mg PO HS Qty: 30 0RF
Discontinued
phenobarbital 32.4 mg Tablet
See Rx Instructions .ROUTE .COMPLEX Qty: 12 0RF
Rx Instructions:
Take 2 tabs BID for 2 days, then 1 tab po BID x 2 days, then stop
cefdinir 300 mg capsule
300 mg PO BID 5 Days Qty: 10 0RF
Discharge Orders:
Discharge Patient (As Directed); Ordered 08/16/25
Ordered By: Regina Chahal
Discharge Date and Time
Print Language: GREENLANDIC
--- NOTE | 2025-08-16 12:40 | CM ---
discharge today
declines [facility] today, states he has their resources
given again
patient does not have transportation home, will provide LYFT
PLAN: home, no needs
== END 2025-08-16 12:58 | disposition home or self-care (01) | DRG 433 ==
LOC: 3 WEST ACU 21:24
PROVIDERS: Physician Assistant; ADMITTING PHYSICIAN Internal Medicine; ATTENDING PHYSICIAN Student in an Organized Health Care Education/Training Program; CONSULT PHYSICIAN Internal Medicine Gastroenterology; CONSULT PHYSICIAN Psychiatry & Neurology Psychiatry; EMERGENCY PHYSICIAN Student in an Organized Health Care Education/Training Program
DX: K70.10 Alcoholic hepatitis without ascites (principal); E87.1 Hypo-osmolality and hyponatremia; F10.239 Alcohol dependence with withdrawal, unspecified; K86.1 Other chronic pancreatitis; K52.9 Noninfective gastroenteritis and colitis, unspecified; I10 Essential (primary) hypertension; N40.0 Benign prostatic hyperplasia without lower urinary tract symptoms; E11.9 Type 2 diabetes mellitus without complications; Z79.4 Long term (current) use of insulin; Z88.8 Allergy status to other drugs, medicaments and biological substances; Z66 Do not resuscitate; Z85.46 Personal history of malignant neoplasm of prostate; F17.210 Nicotine dependence, cigarettes, uncomplicated; F32.9 Major depressive disorder, single episode, unspecified; F43.21 Adjustment disorder with depressed mood; Z92.3 Personal history of irradiation; Z11.52 Encounter for screening for COVID-19
CPT/HCPCS: 71046; 74177; 80053; 81003; 81015; 82077; 82248; 82962; 83036; 83690; 83735; 85025; 85027; 85610; 87502; 87811; 96361; 96374; 96375; 99285; Q9967